=== PATIENT | female | born 1935 | race Caucasian/White ===

== ENCOUNTER 2018-08-12 11:21 | Outpatient (CLI) | payer MEDICARE, OTHER, SELFPAY ==
--- NOTE | 2018-08-12 11:30 | DI.RAD_ITS ---
SYMPTOMS/DIAGNOSIS: LEFT ELBOW PAIN ACUTE, M25.522 LEFT ELBOW: Degenerative changes with periarticular spurring is noted. Soft tissue calcifications are seen which may be ligamentous or capsular. There is a question of posterior loose body. IMPRESSION: Degenerative changes and question of posterior loose body.
[2018-08-12 11:39] LABS: Abs Immature Grans 0.02 k/cumm (0.0-0.09); Basophils % 0.2; Eosinophils % 0.7; HCT 41.6 % (36.0-46.0); HGB 13.9 g/dL (12.0-15.5); Immature Grans % 0.2; Lymphocytes % 10.5; Mean Corp. HGB Concentration 33.4 g/dL (32.0-36.0); Mean Corpuscular Volume 89.8 fL (80-95); Mean Platelet Volume 10.5 fL (8.0-11.0); Monocytes % 8.2; Neutrophils % 80.2; Platelet Count 242 x1000/uL (130-400); RBC 4.63 m/cumm (4.00-5.20); RBC Distribution Width 12.7 % (11.7-14.6); White Blood Cell Count 12.15 k/cumm (4.4-10.8)
[2018-08-12 11:41] LABS: Absolute Basophil Count 0.02 k/cumm (0.0-0.2); Absolute Eosinophil Count 0.09 k/cumm (0.0-0.7); Absolute Lymphocyte Count 1.28 k/cumm (1.2-3.4); Absolute Neutrophil Count 9.74 k/cumm (1.2-6.7)
[2018-08-12 11:51] LABS: Hemoglobin A1C 7.5 % (4.5-6.2)
[2018-08-12 13:09] LABS: ALT 22 U/L (12-78); AST 18 U/L (15-37); Albumin 4.1 g/dL (3.4-5.0); Alkaline Phosphatase 119 U/L (46-116); Anion Gap 7.5 mmol/L (3-11); BUN 19 mg/dL (7-18); Bilirubin, Total 0.5 mg/dL (0.2-1.0); CO2 32.5 mmol/L (21.0-32.0); CREATININE 0.85 mg/dL (0.55-1.02); Calcium 9.6 mg/dL (8.5-10.1); Chloride 100 mmol/L (98-107); Cholesterol 219 mg/dL (50-200); Glucose 173 mg/dL (70-100); HDL Cholesterol 57 mg/dL (40-60); LDL CHOLESTEROL 135 mg/dL (<100); Potassium 4.1 mmol/L (3.5-5.1); Sodium 140 mmol/L (136-145); Total Protein 7.8 g/dL (6.4-8.2); Triglyceride 221 mg/dL (30-150)
== END 2018-08-12 11:41 ==
PROVIDERS: PCP Nurse Practitioner; Visit Provider Nurse Practitioner
DX: M25.522 Pain in left elbow (principal); M19.022 Primary osteoarthritis, left elbow; E78.00 Pure hypercholesterolemia, unspecified; I73.9 Peripheral vascular disease, unspecified; I10 Essential (primary) hypertension; E11.9 Type 2 diabetes mellitus without complications
CPT/HCPCS: 36415; 80053; 80061; 83721; 73080; 83036; 85025

== ENCOUNTER 2018-12-01 08:56 | Day surgery (SDC) | payer MEDICARE, OTHER, MEDICAID, SELFPAY ==
--- NOTE | 2018-11-30 19:39 | POEE_ITS ---
History of Present Illness Chief Complaint: Progressive decreased vision, left eye Narrative: The patient is an 82-year-old lady with a history of diabetes with diabetic retinopathy who presents with complaints of progressive decreased vision in both eyes at both distance and near. She notes blurred vision OU, le ft eye worse than right. On examination she was noted to have moderate bilateral nuclear cataracts, left eye greater than right with best corrected vision of 20/40 OD, 20/50 OS in the presence of high hyperopia. The option of cataract surgery was offered to the patient and she wished to proceed. NOTE: The Chief Complaint, HPI, Past Medical History, Past Surgical History, Family History, Social History, Medications, and complete Ophthalmic Exam with detailed Assessment and Plan have already been documented in the patient's outpatient ophthalmic record and are not covered again in detail here. PFSH Medical History Nuclear sclerotic cataract of left eye (Acute) History of nose injury (Acute) Cataract (Chronic) Angina pectoris, unspecified CVD (cardiovascular disease) Diabetes type 2 with atherosclerosis of arteries of extremities GERD (gastroesophageal reflux disease) Hypercholesterolemia Hypertension Osteoarthritis Osteoporosis Peripheral vascular disease Pressure ulcer of left heel, stage 2 Surgical History H/O thumb surgery (Acute) H/O wrist surgery (Acute) History of total knee replacement (Acute) Hx of neck surgery (Acute) History of shoulder surgery (Chronic) Carotid endarterectomy (10/19/14) Coronary Artery Bypass Gaft (CABG) (10/19/14) 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 Social History Smoking/Tobacco Use Status: Never Alcohol Intake: never Drug use: Never Substance use type: does not use Do you feel safe at home: Yes Do you feel safe in your relationship?: Yes Meds Home Medications Medication Instructions Recorded Confirmed Type multivitamin with minerals 1 ea PO DAILY 12/02/12 11/26/18 History aspirin [Aspir-81] 81 mg PO DAILY 10/27/14 11/26/18 History clobetasol 60 gm TOPICAL BID PRN #2 tube 01/13/15 11/26/18 History Forward Goal 03/08/15 11/17/18 History polyethylene glycol 3350 17 gm PO DAILY PRN PRN #30 packet 07/25/17 11/26/18 Rx blood sugar diagnostic [Onetouch #100 strip 08/26/17 11/17/18 Rx Ultra Test Strips] lancets [[place]ytouch Lancets] #100 ea 08/26/17 11/17/18 Rx pravastatin 5 mg PO DAILY #45 tab 10/03/17 11/26/18 Rx Diabetic Shoes u #2 10/07/17 11/17/18 Clinic clopidogrel [Plavix] 75 mg PO DAILY #90 tab 03/03/18 11/26/18 Rx docusate sodium 100 mg capsule 100 mg PO TID PRN PRN #90 cap 07/16/18 11/26/18 Rx ranitidine 150 mg tablet 150 mg PO DAILY #90 tab-cap 07/16/18 11/26/18 Rx amlodipine 10 mg tablet 10 mg PO DAILY #90 tab 08/06/18 11/26/18 Rx hydrochlorothiazide 25 mg tablet 25 mg PO DAILY #90 tab 08/06/18 11/26/18 Rx metoprolol tartrate 100 mg tablet 50 mg PO BID #180 tab 08/06/18 11/26/18 Rx lisinopril 20 mg tablet 20 mg PO DAILY #90 tab 08/12/18 11/26/18 Rx cholecalciferol (vitamin D3) 400 400 unit PO DAILY tab 11/17/18 11/26/18 History unit tablet Allergies Allergy/AdvReac Type Severity Reaction Status Date / Time acetaminophen Allergy Unknown Verified 11/26/18 14:17 oxycodone Allergy Unknown SKIN RASH Verified 11/26/18 14:17 atorvastatin calcium Allergy Verified 11/26/18 14:17 [From Lipitor] amlodipine AdvReac Intermediate LEG EDEMA Verified 11/26/18 14:17 diltiazem AdvReac Intermediate DIZZINESS Verified 11/26/18 14:17 AND LE EDEMA simvastatin AdvReac Unknown MYALGIA Verified 11/26/18 14:17 chlorthalidone AdvReac LEGS Verified 11/26/18 14:17 SWELLING metformin AdvReac THINKS Verified 11/26/18 14:17 GAVE HER A STROKE Exam OCULAR EXAM:: Recent ocular examination is significant for best corrected vision of 20/40 OD, 20/50 OS. Intraocular pressure is 16 OD, 16 OS. Extraocular motility is normal. Pupils equal, round, and reactive without afferent pupillary defect slit-lamp examination is significant for intermediate anterior chamber depth. Pupils dilated to 5 mm OU. 2+ nuclear cataract OD, 2-3+ nuclear cataract OS. Dilated funduscopic examination shows disc cupping of 0.25 OU with normal vessels. The retinal vasculature is normal as is the maculas OU. Mid peripheral and peripheral retina show findings consistent with diabetic retinopathy dot blot hemorrhages. BRIGHTNESS ACUITY TESTING (BAT):: Brightness acuity testing of the left eye office is 20/50. Lowest 20/60. Medium is 20/70. On the high setting is 20/100. Assessment and Plan (1) Nuclear sclerotic cataract of left eye: Current visit: No Status: Acute Assessment: Visually significant cataract, left eye. Plan: Cataract extraction with intraocular lens implantation, left eye Note: NOTE:: The details of the planned surgery, including the risks, indications,limitations,expectations,outcome and possible complications were explained to the patient. The patient understands the complications including, but not limited to: infection, hemorrhage, posterior dislocation of the lens or nuclear fragments which may require the intervention of a vitreoretinal surgeon, possible loss of the eye, or from anesthetic complications. The patient has been made aware of the option of not having surgery, that vision following surgery may not be equal to that prior to surgery, and that the planned surgery may not achieve the intended results. Following this discussion, which the patient appeared to understand, the patient wishes to proceed with cataract surgery with lens implantation of the affected eye to improve and maximize vision.
[2018-12-01 09:18] VITALS: BP 172/67; PULSE 58; RESP 16; TEMP 35.6; O2SAT 98
[2018-12-01] MEDS: Tropicam./Phenyleph. (1/2.5%) 5 ML BTL OS ×3 (09:39→09:51)
[2018-12-01] MEDS: Tetracaine 0.5% 4 ML BTL OS ×4 (09:39→10:45)
--- NOTE | 2018-12-01 10:33 | W.PM.DSUDISC ---
Discharge Plan Disposition Patient Disposition: HOME Condition: Stable Discharge Details Attending Provider: Raudel Murphy Primary Care Provider: Kenna Vargas Home Meds and New Rx's Prescriptions: No Action lisinopril 20 mg tablet 20 mg PO DAILY Qty: 90 RF: 3 cholecalciferol (vitamin D3) [Vitamin D3] 400 unit tablet 400 unit PO DAILY RF: 0 multivitamin with minerals 1 EACH tablet 1 ea PO DAILY RF: 0 clobetasol 60 GM ointment 60 gm Topical BID PRNQty: 2 RF: 2 Forward Goal RF: 0 OneTouch Ultra Test 1 EACH strip 1 ea Miscellaneous DAILY Qty: 100 RF: 3 lancets [OneTouch UltraSoft Lancets] 1 EACH misc 1 ea Miscellaneous DAILY Qty: 100 RF: 3 pravastatin 10 MG tablet 5 mg PO DAILY Qty: 45 RF: 3 Diabetic Shoes Qty: 2 RF: 0 clopidogrel [Plavix] 75 MG tablet 75 mg PO DAILY Qty: 90 RF: 3 docusate sodium [Colace] 100 mg capsule 100 mg PO TID PRN PRN (Reason: constipation) Qty: 90 RF: 12 ranitidine HCl 150 mg tablet 150 mg PO DAILY Qty: 90 RF: 3 amlodipine 10 mg tablet 10 mg PO DAILY Qty: 90 RF: 3 hydrochlorothiazide 25 mg tablet 25 mg PO DAILY Qty: 90 RF: 3 metoprolol tartrate 100 mg tablet 50 mg PO BID Qty: 180 RF: 3 aspirin [Aspir-81] 81 MG tablet,delayed release (DR/EC) 81 mg PO DAILY RF: 0 polyethylene glycol 3350 17 GM powder in packet 17 gm PO DAILY PRN PRN (Reason: Constipation) Qty: 30 RF: 0 Discharge Instructions Stand Alone Forms: Post-op Topical Cataract, Press Ganey (DSU) Discharge Orders Discharge Orders: Discharge Order (Routine); Ordered 12/01/18 Ordered By: Raudel Murphy DS: Diagnosis Discharge Diagnosis (1) Nuclear sclerotic cataract of left eye: Status: Resolved (2) Status post cataract extraction and insertion of intraocular lens of left eye: Status: Chronic
--- NOTE | 2018-12-01 10:35 | ROE_ITS ---
Date of service: 12/01/18 Time of Service: 11:22 Operative Note PRE-OP DIAGNOSIS: Cataract, left eye POST-OP DIAGNOSIS: same PROCEDURE: Cataract extraction using phacoemulsification with intraocular lens implant, left eye SURGEON: Raudel Murphy ANESTHESIA: MAC and local (sub-tenon's anesthetic infiltration) PATHOLOGY: none sent COMPLICATIONS: None Patient was transported to: same day Patient's condition: stable Implants: Maximus and Maximus Vision / [employer] Tecnis ZCB00 Indications: Progressive decreased vision due to cataract, left eye Procedure Description: CATARACT SURGERY OPERATIVE REPORT PREOPERATIVE DIAGNOSIS: Nuclear cataract, left eye High hyperopia POSTOPERATIVE DIAGNOSIS: Same OPERATION: Cataract extraction using phacoemulsification with posterior chamber intraocular lens implant, left eye. IOL: IOL Utility Bill Complaints Investigator/Model: [employer] / ISABELLA Tecnis ZCB00 IOL Power: + 32.50 diopters IOL Serial Number: [id number] Optic Diameter: 6.0mm Haptic/Overall Diameter: 13.0mm PHACO INFO: [employer] Global[employer]ion Vision System with OZil and Active Fluidics Cumulative Dispersed Energy (CDE): 17.65 seconds SURGEON: Raudel Murphy MD, DHARA ANESTHESIA: Monitored Anesthesia Care (MAC), with local sub-tenon's anesthetic infiltration COMPLICATIONS: None SPECIMENS: None INDICATIONS FOR PROCEDURE: The patient is an 82-year-old lady with history of very high hyperopia (around +8.00) who has developed a moderate bilateral nuclear cataract. She is significantly symptomatically in her left eye with best corrected vision of 20/70 that she desires cataract surgery and attempt to improve and maximize her vision. PROCEDURE: The correct surgical eye was identified and marked as the left eye and the pupil was dilated in the preoperative area using mydriatics and cycloplegics. The dilated pupil size was 6.0 mm. Oral sedation was administered in the form of an Imprimis MKO Melt (midazolam 3mg/ketamine 25mg/ondansetron 2mg). The patient was brought to the operating room where cardiopulmonary monitoring was instituted and surgical time-out was performed, confirming the correct operative eye and IOL power. Topical anesthesia was administered and ophthalmic povidone-iodine 5% was instilled into the conjunctival fornices. Lidocaine gel was applied to the cornea and the lindsay-ocular area was prepped with Betadine 10% solution and draped in the usual sterile fashion for intraocular surgery, including an aperture drape. A Tegaderm transparent film dressing was cut in half and used to cover the lashes and lid margins. Care was taken to sequester the lashes and lid margins under the Tegaderm dressing. A lid speculum was placed between the lids of the operative eye and the Shobha-Ajky operating microscope was maneuvered into position. Stephanie scissors were then used to make a conjunctival buttonhole approximately 6mm posterior to the limbus in the inferonasal quadrant. Blunt dissection was carried out to expose bare sclera, and a blunt-tipped sub-tenon?s anesthesia cannula was introduced and passed posteriorly along the globe where non- preserved plain lidocaine was injected into posterior sub-Tenon?s space. A sideport knife was used to make a paracentesis port superior/superiortemporal, and the anterior chamber was filled with Viscoat. A 2.4mm keratome knife was used to create a half-thickness groove at the limbus and then to construct a three-plane near-clear corneal tunnel extending 2.0mm into clear cornea in the temporal position. . A flap was raised on the anterior capsule and capsulorhexis forceps were used to complete a continuous curvilinear capsulorhexis of 5.0 mm. Balanced salt solution was then used to perform cortical cleaving hydrodissection and nuclear hydrodelineation until the lens could be freely rotated within the capsular bag. The lens nucleus was then disassembled and removed within the capsular bag and iris plane using phacoemulsification. Residual cortical material was removed using the 45-degree angled silicone I/A tip with 0.3mm port. The posterior capsule was carefully polished to remove as much residual lens epithelial cells as safely possible. The capsular bag was then inflated and the anterior chamber deepened with Provisc. The lens implant described above was inserted into the capsular bag using the ISABELLA [place] Injector. A Kuglen hook was used to dial the IOL into position. Residual viscoelastic was then removed first from posterior to the IOL, then from the anterior chamber using the I/A handpiece. The lens implant was noted to center nicely within the capsular bag. The incisions were stromally hydrated, and the anterior chamber was reformed using BSS. Then 0.4cc of moxifloxacin 1.5mg/ml were injected into the capsular bag and anterior chamber. The incisions were checked with a Weck spear and found to be secure. Several drops of ophthalmic povidone-iodine 5% were then applied to the eye followed by two drops of Imprimis combination gatifloxacin/dexamethasone solution. The drapes were removed and a clear plastic protective eye shield was placed over the eye. The patient was then returned to Same Day Surgery in stable condition.
[2018-12-01] MEDS: Povidone-Iodine Ophth 30 ML BTL ×2 (10:45→11:15)
[2018-12-01] MEDS: Lidocaine 2% Jelly 6 ML SYR (10:45)
[2018-12-01] MEDS: Balanced Salt Soln.-PLUS 500 ML BAG (10:52)
[2018-12-01] MEDS: Lidocaine 1% Pres-Free 5 ML VIAL (10:52)
[2018-12-01] MEDS: Duovisc Viscoelastic System EACH 1 EACH (10:52)
[2018-12-01 11:45] VITALS: BP 161/68; PULSE 56; RESP 14; TEMP 35.9; O2SAT 98
== END 2018-12-01 12:00 | disposition home or self-care (01) ==
PROVIDERS: PCP Nurse Practitioner; Visit Provider Ophthalmology
PROC: (CPT 66984; principal; 2018-12-01 11:30)
DX: H25.12 Age-related nuclear cataract, left eye (principal); H52.02 Hypermetropia, left eye; E11.9 Type 2 diabetes mellitus without complications; Z79.84 Long term (current) use of oral hypoglycemic drugs; I10 Essential (primary) hypertension; K21.9 Gastro-esophageal reflux disease without esophagitis
CPT/HCPCS: 66984; V2632

== ENCOUNTER 2018-12-15 10:30 | Day surgery (SDC) | payer MEDICARE, OTHER, MEDICAID, SELFPAY ==
--- NOTE | 2018-12-14 18:18 | W.PIPPEYE ---
History of Present Illness Chief Complaint: Progressive decreased vision, right eye Narrative: The patient is an 83-year old lady with history of high hyperopia and cataracts. She noted progressive decreased vision in both eyes at both distance and near, left eye worse than right. On examination she was noted to have moderate bilateral nuclear cataracts, left eye greater than right. Best corrected vision measured 20/40 OD, 20/50 OS with significant glare disability. She underwent cataract surgery in the left eye on 12/01/2018. Postoperatively, she has regained best corrected vision of 20/30 in the left eye. She now presents for cataract surgery in the right eye. NOTE: The Chief Complaint, HPI, Past Medical History, Past Surgical History, Family History, Social History, Medications, and complete Ophthalmic Exam with detailed Assessment and Plan have already been documented in the patient's outpatient ophthalmic record and are not covered again in detail here. [facility] Medical History History of nose injury (Acute) Cataract (Chronic) Nuclear sclerotic cataract of left eye (Resolved) Angina pectoris, unspecified CVD (cardiovascular disease) Diabetes type 2 with atherosclerosis of arteries of extremities GERD (gastroesophageal reflux disease) Hypercholesterolemia Hypertension Osteoarthritis Osteoporosis Peripheral vascular disease Pressure ulcer of left heel, stage 2 Surgical History Status post cataract extraction and insertion of intraocular lens of left eye (Chronic 12/01/18) H/O thumb surgery (Acute) H/O wrist surgery (Acute) History of total knee replacement (Acute) Hx of neck surgery (Acute) History of shoulder surgery (Chronic) Carotid endarterectomy (10/19/14) Coronary Artery Bypass Gaft (CABG) (10/19/14) 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 Social History Smoking/Tobacco Use Status: Never Alcohol Intake: never Drug use: Never Substance use type: does not use Do you feel safe at home: Yes Do you feel safe in your relationship?: Yes Meds Home Medications Medication Instructions Recorded Confirmed Type multivitamin with minerals 1 ea PO DAILY 12/02/12 12/01/18 History aspirin [Aspir-81] 81 mg PO DAILY 10/27/14 12/01/18 History clobetasol 60 gm TOPICAL BID PRN #2 tube 01/13/15 12/01/18 History Forward Goal 03/08/15 11/17/18 History polyethylene glycol 3350 17 gm PO DAILY PRN PRN #30 packet 07/25/17 12/01/18 Rx blood sugar diagnostic [Onetouch #100 strip 08/26/17 11/17/18 Rx Ultra Test Strips] lancets [Onetouch Lancets] #100 ea 08/26/17 11/17/18 Rx pravastatin 5 mg PO DAILY #45 tab 10/03/17 12/01/18 Rx Diabetic Shoes u #2 10/07/17 11/17/18 Clinic clopidogrel [Plavix] 75 mg PO DAILY #90 tab 03/03/18 12/01/18 Rx docusate sodium 100 mg capsule 100 mg PO TID PRN PRN #90 cap 07/16/18 12/01/18 Rx ranitidine 150 mg tablet 150 mg PO DAILY #90 tab-cap 07/16/18 12/01/18 Rx amlodipine 10 mg tablet 10 mg PO DAILY #90 tab 08/06/18 12/01/18 Rx hydrochlorothiazide 25 mg tablet 25 mg PO DAILY #90 tab 08/06/18 12/01/18 Rx metoprolol tartrate 100 mg tablet 50 mg PO BID #180 tab 08/06/18 12/01/18 Rx lisinopril 20 mg tablet 20 mg PO DAILY #90 tab 08/12/18 12/01/18 Rx cholecalciferol (vitamin D3) 400 400 unit PO DAILY tab 11/17/18 12/01/18 History unit tablet Allergies Allergy/AdvReac Type Severity Reaction Status Date / Time acetaminophen Allergy Unknown Verified 12/01/18 09:14 oxycodone Allergy Unknown SKIN RASH Verified 12/01/18 09:14 atorvastatin calcium Allergy Verified 12/01/18 09:14 [From Lipitor] amlodipine AdvReac Intermediate LEG EDEMA Verified 12/01/18 09:14 diltiazem AdvReac Intermediate DIZZINESS Verified 12/01/18 09:14 AND LE EDEMA simvastatin AdvReac Unknown MYALGIA Verified 12/01/18 09:14 chlorthalidone AdvReac LEGS Verified 12/01/18 09:14 SWELLING metformin AdvReac THINKS Verified 12/01/18 09:14 GAVE HER A STROKE Exam OCULAR EXAM:: Most recent ocular examination is significant for corrected visual acuity of 20/50 OD, 20/30 OS. Intraocular pressure is 14 OS, 16 OD. Pupils equal, round, and reactive without afferent pupillary defect extraocular motility is normal. Slit-lamp examination is significant for intermediate anterior chamber depth OD with pupils dilating to 5 mm. A 2+ nuclear cataract is present OD. A well-positioned PCIOL is present OS with clear posterior capsule. Dilated funduscopic examination shows disc cupping of 0.25 OU with good color. The vessels and macula are normal OU. Peripheral and mid peripheral retina show dot and blot hemorrhages consistent with mild diabetic retinopathy. BRIGHTNESS ACUITY TESTING (BAT):: Brightness acuity testing of the right eye office is 20/40. On the low medium and high setting is 20/50. Assessment and Plan (1) Nuclear sclerotic cataract of right eye: Current visit: No Status: Acute Assessment: Visually significant cataract, right eye. Plan: Cataract extraction with intraocular lens implantation, right eye Note: NOTE:: The details of the planned surgery, including the risks, indications,limitations,expectations,outcome and possible complications were explained to the patient. The patient understands the complications including, but not limited to: infection, hemorrhage, posterior dislocation of the lens or nuclear fragments which may require the intervention of a vitreoretinal surgeon, possible loss of the eye, or from anesthetic complications. The patient has been made aware of the option of not having surgery, that vision following surgery may not be equal to that prior to surgery, and that the planned surgery may not achieve the intended results. Following this discussion, which the patient appeared to understand, the patient wishes to proceed with cataract surgery with lens implantation of the affected eye to improve and maximize vision.
[2018-12-15 10:57] VITALS: BP 177/70; PULSE 59; RESP 16; TEMP 35.7; O2SAT 97
[2018-12-15] MEDS: Tetracaine 0.5% 4 ML BTL OD ×4 (11:02→12:03)
[2018-12-15] MEDS: Tropicam./Phenyleph. (1/2.5%) 5 ML BTL OD ×3 (11:02→11:15)
--- NOTE | 2018-12-15 11:53 | W.PM.DSUDISC ---
Discharge Plan Disposition Patient Disposition: HOME Condition: Stable Discharge Details Attending Provider: Raudel Murphy Primary Care Provider: Kenna Vargas Home Meds and New Rx's Prescriptions: No Action lisinopril 20 mg tablet 20 mg PO DAILY Qty: 90 RF: 3 cholecalciferol (vitamin D3) [Vitamin D3] 400 unit tablet 400 unit PO DAILY RF: 0 multivitamin with minerals 1 EACH tablet 1 ea PO DAILY RF: 0 clobetasol 60 GM ointment 60 gm Topical BID PRNQty: 2 RF: 2 Forward Goal RF: 0 OneTouch Ultra Test 1 EACH strip 1 ea Miscellaneous DAILY Qty: 100 RF: 3 lancets [OneTouch UltraSoft Lancets] 1 EACH misc 1 ea Miscellaneous DAILY Qty: 100 RF: 3 pravastatin 10 MG tablet 5 mg PO DAILY Qty: 45 RF: 3 Diabetic Shoes Qty: 2 RF: 0 clopidogrel [Plavix] 75 MG tablet 75 mg PO DAILY Qty: 90 RF: 3 docusate sodium [Colace] 100 mg capsule 100 mg PO TID PRN PRN (Reason: constipation) Qty: 90 RF: 12 ranitidine HCl 150 mg tablet 150 mg PO DAILY Qty: 90 RF: 3 amlodipine 10 mg tablet 10 mg PO DAILY Qty: 90 RF: 3 hydrochlorothiazide 25 mg tablet 25 mg PO DAILY Qty: 90 RF: 3 metoprolol tartrate 100 mg tablet 50 mg PO BID Qty: 180 RF: 3 aspirin [Aspir-81] 81 MG tablet,delayed release (DR/EC) 81 mg PO DAILY RF: 0 polyethylene glycol 3350 17 GM powder in packet 17 gm PO DAILY PRN PRN (Reason: Constipation) Qty: 30 RF: 0 Discharge Instructions Stand Alone Forms: Post-op Topical Cataract, Press Ganey (DSU) Discharge Orders Discharge Orders: Discharge Order (Routine); Ordered 12/15/18 Ordered By: Raudel Murphy DS: Diagnosis Discharge Diagnosis (1) Nuclear sclerotic cataract of right eye: Status: Resolved (2) Status post cataract extraction and insertion of intraocular lens of right eye: Status: Chronic
--- NOTE | 2018-12-15 11:54 | W.PM.OP ---
Date of service: 12/15/18 Time of Service: 12:34 Operative Note PRE-OP DIAGNOSIS: Cataract, right eye PROCEDURE: Cataract extraction using phacoemulsification with intraocular lens implant, right eye SURGEON: Raudel Murphy ANESTHESIA: MAC and local (sub-tenon's anesthetic infiltration) ESTIMATED BLOOD LOSS: 0 PATHOLOGY: none sent COMPLICATIONS: None Patient was transported to: same day Patient's condition: stable Implants: Maximus and Maximus [employer] / [employer] Tecnis ZCB00 intraocular lens Indications: Progressive decreased vision due to cataract, right eye Procedure Description: CATARACT SURGERY OPERATIVE REPORT PREOPERATIVE DIAGNOSIS: Nuclear cataract, right eye POSTOPERATIVE DIAGNOSIS: Same OPERATION: Cataract extraction using phacoemulsification with posterior chamber intraocular lens implant, right eye. IOL: IOL Therapeutic Support Staff/Model: [employer] / ISABELLA Tecnis ZCB00 IOL Power: + 31.5 diopters IOL Serial Number: [id number] Optic Diameter: 6.0mm Haptic/Overall Diameter: 13.0mm PHACO INFO: Andrew Clerkyurion Vision System with OZil and Active [employer]uidics Cumulative Dispersed Energy (CDE): 10.54 seconds SURGEON: Raudel Murphy MD, DHARA ANESTHESIA: Monitored Anesthesia Care (MAC), with local sub-tenon's anesthetic infiltration COMPLICATIONS: None SPECIMENS: None INDICATIONS FOR PROCEDURE: Patient is an 83-year-old lady with history of high hyperopia who has developed significant bilateral cataracts. She has already undergone cataract surgery in her left eye and is doing well postoperatively. She now presents for cataract surgery in the right eye. PROCEDURE: The correct surgical eye was identified and marked as the right eye and the pupil was dilated in the preoperative area using mydriatics and cycloplegics. The dilated pupil size was 6.0 mm. Oral sedation was administered in the form of an Imprimis MKO Melt (midazolam 3mg/ketamine 25mg/ondansetron 2mg). The patient was brought to the operating room where cardiopulmonary monitoring was instituted and surgical time-out was performed, confirming the correct operative eye and IOL power. Topical anesthesia was administered and ophthalmic povidone-iodine 5% was instilled into the conjunctival fornices. Lidocaine gel was applied to the cornea and the lindsay-ocular area was prepped with Betadine 10% solution and draped in the usual sterile fashion for intraocular surgery, including an aperture drape. A Tegaderm transparent film dressing was cut in half and used to cover the lashes and lid margins. Care was taken to sequester the lashes and lid margins under the Tegaderm dressing. A lid speculum was placed between the lids of the operative eye and the Shobha-Jaky operating microscope was maneuvered into position. Stephanie scissors were then used to make a conjunctival buttonhole approximately 6mm posterior to the limbus in the inferonasal quadrant. Blunt dissection was carried out to expose bare sclera, and a blunt-tipped sub-tenon?s anesthesia cannula was introduced and passed posteriorly along the globe where non-preserved plain lidocaine was injected into posterior sub-Tenon?s space. A sideport knife was used to make a paracentesis port inferiortemporally, and the anterior chamber was filled with Healon GV. A 2.4mm keratome knife was used to create a half-thickness groove at the limbus and then to construct a three-plane near-clear corneal tunnel extending 2.0mm into clear cornea in the superiortemporal position. . A flap was raised on the anterior capsule and capsulorhexis forceps were used to complete a continuous curvilinear capsulorhexis of 5.0 mm. Mild to moderate zonular laxity was noted. Balanced salt solution was then used to perform cortical cleaving hydrodissection and nuclear hydrodelineation until the lens could be freely rotated within the capsular bag. The lens nucleus was then disassembled and removed within the capsular bag and iris plane using phacoemulsification. Residual cortical material was removed using the I/A handpiece. The posterior capsule was carefully polished to remove as much residual lens epithelial cells as safely possible. The capsular bag was then inflated and the anterior chamber deepened with viscoelastic. The lens implant described above was inserted into the capsular bag using the ISABELLA [place] Injector. A Kuglen hook was used to dial the IOL into position. Residual viscoelastic was then removed first from posterior to the IOL, then from the anterior chamber using the I/A handpiece. The lens implant was noted to center nicely within the capsular bag. The incisions were stromally hydrated, and the anterior chamber was reformed using BSS. Then 0.4cc of moxifloxacin 1.5mg/ml were injected into the capsular bag and anterior chamber. The incisions were checked with a Weck spear and found to be secure. Several drops of ophthalmic povidone-iodine 5% were then applied to the eye followed by two drops of Imprimis combination prednisolone/gatifloxacin/bromfenac solution. The drapes were removed and a clear plastic protective eye shield was placed over the eye. The patient was then returned to Same Day Surgery in stable condition.
[2018-12-15] MEDS: Lidocaine 1% Pres-Free 5 ML VIAL (12:03)
[2018-12-15] MEDS: Lidocaine 2% Jelly 6 ML SYR (12:09)
[2018-12-15] MEDS: Balanced Salt Soln.-PLUS 500 ML BAG (12:09)
[2018-12-15] MEDS: Povidone-Iodine Ophth 30 ML BTL (12:28)
[2018-12-15 13:02] VITALS: BP 159/66; PULSE 57; RESP 18; TEMP 36.3; O2SAT 94
== END 2018-12-15 13:15 | disposition home or self-care (01) ==
PROVIDERS: PCP Nurse Practitioner; Visit Provider Ophthalmology
PROC: (CPT 66984; principal; 2018-12-15 13:30)
DX: H25.11 Age-related nuclear cataract, right eye (principal); Z98.42 Cataract extraction status, left eye; Z96.1 Presence of intraocular lens; E11.9 Type 2 diabetes mellitus without complications; Z79.4 Long term (current) use of insulin; I10 Essential (primary) hypertension; K21.9 Gastro-esophageal reflux disease without esophagitis
CPT/HCPCS: 66984; V2632

== ENCOUNTER 2020-02-22 21:17 | Outpatient (REF) | payer MEDICARE, OTHER, MEDICAID, SELFPAY ==
[2020-02-22 19:05] LABS: ALT 30 U/L (14-59); AST 24 U/L (15-37); Albumin 4.1 g/dL (3.4-5.0); Alkaline Phosphatase 83 U/L (46-116); Anion Gap 10.2 mmol/L (3-11); BUN 12 mg/dL (7-18); Bilirubin, Total 0.3 mg/dL (0.2-1.0); CO2 25.8 mmol/L (21.0-32.0); CREATININE 0.77 mg/dL (0.55-1.02); Calcium 9.4 mg/dL (8.5-10.1); Calculated LDL 109 mg/dL (<100); Chloride 106 mmol/L (98-107); Cholesterol 179 mg/dL (<200); Glucose 123 mg/dL (74-106); HDL Cholesterol 46 mg/dL (40-60); Potassium 4.3 mmol/L (3.5-5.1); Sodium 142 mmol/L (136-145); Total Protein 7.4 g/dL (6.4-8.2); Triglyceride 124 mg/dL (<150)
== END 2020-02-22 21:37 ==
LOC: LBN 21:17
PROVIDERS: PCP Nurse Practitioner; Visit Provider Nurse Practitioner
DX: E11.9 Type 2 diabetes mellitus without complications (principal); E78.00 Pure hypercholesterolemia, unspecified; I10 Essential (primary) hypertension; I25.10 Atherosclerotic heart disease of native coronary artery without angina pectoris
CPT/HCPCS: 80053; 80061

== ENCOUNTER 2020-05-01 08:46 | Emergency (ER) | payer MEDICARE, OTHER, MEDICAID, SELFPAY ==
[2020-05-01] VITALS (16 sets, daily range): BP systolic 150–221; BP diastolic 43–71; PULSE 52–67; RESP 10–20; TEMP 36.6; O2SAT 96–99
--- NOTE | 2020-05-01 08:45 | DI.RAD_ITS ---
EXAM: XR CHEST 2V PA LATERAL CLINICAL HISTORY: palpitations TECHNIQUE: COMPARISON: CR CHEST ONE VIEW IN RAD DEPT from 06/28/2017 FINDINGS: There are multiple sternal fixation devices and multiple mediastinal vascular clips. Heart is not en larged. Lungs are grossly clear. No pleural effusion seen. No change from film of June 2017. IMPRESSION: No evidence of acute process. RADIATION DOSE DELIVERED: Total DLP
--- NOTE | 2020-05-01 08:45 | RT.EKG_ITS ---
APPROVED REPORT Exam: Resting ECG Patient Location: E HR:62 bpm ECG Measurements Heart Rate 62 AXIS NE 144 P -2 QRSd 108 QRS -19 QT 449 T 111 QTc 453 Conclusion Sinus rhythm...normal P axis, V-rate 62 Atrial premature complex. LVH with secondary repolarization abnormality...multi-LVH criteria, abnrm ST-T minimal change versus 06/28/17
--- NOTE | 2020-05-01 08:49 | W.ED.GENAD ---
Discharge Plan Disposition Patient Disposition: HOME Condition: Fair Discharge Details Clinical Impression: Heart palpitations Primary Care Provider: Kenna Vargas ED Provider: Nia Clark Home Meds and New Rx's Prescriptions: Continued clopidogrel [Plavix] 75 mg tablet 75 mg PO DAILY Qty: 90 RF: 3 amlodipine 10 mg tablet 10 mg PO DAILY Qty: 90 RF: 3 hydrochlorothiazide 25 mg tablet 25 mg PO DAILY Qty: 90 RF: 3 lisinopril 20 mg tablet 20 mg PO DAILY Qty: 90 RF: 3 pravastatin 10 mg tablet 5 mg PO DAILY Qty: 45 RF: 3 cholecalciferol (vitamin D3) [Vitamin D3] 400 unit tablet 400 unit PO DAILY RF: 0 multivitamin with minerals 1 EACH tablet 1 ea PO DAILY RF: 0 clobetasol 60 GM ointment 60 gm Topical BID PRNQty: 2 RF: 2 Forward Goal RF: 0 (DME) OneTouch Ultra Test 1 EACH strip 1 ea Miscellaneous DAILY Qty: 100 RF: 3 (DME) lancets [OneTouch UltraSoft Lancets] 1 EACH misc 1 ea Miscellaneous DAILY Qty: 100 RF: 3 Diabetic Shoes Qty: 2 RF: 0 docusate sodium [Colace] 100 mg capsule 100 mg PO TID PRN PRN (Reason: constipation) Qty: 90 RF: 12 ketorolac 0.4 % drops 1 drp OP QID RF: 0 metoprolol tartrate 100 mg tablet 50 mg PO BID Qty: 180 RF: 3 aspirin [Aspir-81] 81 MG tablet,delayed release (DR/EC) 81 mg PO DAILY RF: 0 polyethylene glycol 3350 17 GM powder in packet 17 gm PO DAILY PRN PRN (Reason: Constipation) Qty: 30 RF: 0 Discharge Instructions Instructions: Heart Palpitations (ED) Additional Instructions: Your exam and work-up completed today is reassuring. However, I would like for you to follow-up with your primary care in the next 1 to 2 weeks for reevaluation. Please continue to wear the property assessment monitor as instructed by respiratory therapy. If you develop chest pain, shortness of breath, feel lightheaded, fever/chills or other new/worsening symptoms please seek care urgently once again. Referrals: Kenna Vargas NP [Primary Care Provider] - Medical Decision Making Patient is a pleasant 84-year-old female presents today with chief complaint of palpitations. She reports she woke this morning feeling her heart beating in her chest. States that she took her pulse and noted her pulse to be fast. Denied any lightheadedness, chest pain, shortness of breath. No nausea or vomiting. No pain in her neck, extremities. Patient states that the sensation was ongoing when she first arrived but is resolved at the time of my exam. Past medical history is pertinent for CAD, type 2 diabetes, GERD, hypercholesterolemia, hypertension, PVD. Patient is status post carotid endarterectomy, three-vessel CABG in 2015. States she has had sensation like this multiple times historically but typically the symptoms are much more short-lived. On exam, patient is resting comfortably. Nursing staff does report that they did check her radial pulse when she was still reporting to be asymptomatic. She noted the patient had a regular rhythm that felt to be in the 70s. She does have a systolic murmur which has been present on chart review. Lungs are clear. Distal pulses are intact. She does have 1+ pitting edema in her bilateral lower extremities which patient reports is chronic and unchanged. ECG was reviewed by Dr. Granger. Please see his note. Patient does have findings suggestive of LVH. She does have a T wave abnormalities but this is fairly similar to previous ECG dated 2017. PACs noted. Patient did wear a Holter monitor in 2014. At that time, patient was noted to have baseline sinus bradycardia concave [address] depression. Rare PACs. Patient did have some hot sensations while wearing a mask and during both of these events, patient was no sinus rhythm rate of 79 and 57. Labs reviewed. No leukocytosis. Stable H&H. Coags are normal. Glucose is elevated at 179. No electrolyte abnormalities. BNP is slightly elevated 424. Troponin less than 0.05. Chest x-ray reviewed by radiologist: FINDINGS: Lungs: Mild opacity in the left costophrenic angle may represent minimal atelectasis or pneumonia or small left pleural effusion. . Pleural space: Possible small left pleural effusion. Heart/Mediastinum: Unremarkable. No cardiomegaly. Vasculature: Tortuous aorta Bones/joints: Median sternotomy Degenerative changes in the glenohumeral joints IMPRESSION: Mild opacity in the left costophrenic angle may represent minimal atelectasis or pneumonia or small left pleural effusion. . Discussed findings with the patient. She does not clinically fit the picture for pneumonia. Clinical exam indicates this is most likely associated with atelectasis. Patient continues to be asymptomatic. She is notably hypertensive. She did not take any of her medications this morning. We will give her morning dosing. Plan for repeat troponin. Repeat troponin remains less than 0.05. Repeat EKG was reviewed by Dr. Granger and without ischemic abnormality. Discussed these findings with the patient and her niece. Advised that at this point, I am unclear as to what the source of her palpitations was. It is reassuring that she was in a normal rhythm and rate when she was initially evaluated by nursing staff during which time she was symptomatic. However, for further evaluation I do feel that cardiac monitoring would be appropriate. Spoke with respiratory therapy and will have the patient placed on a BG mini EL property assessment monitor. She is given strict return precautions. I have asked that she follow-up with primary care in 1 week for reevaluation. All of her questions and concerns were addressed she is in agreement this plan. HPI General Mode of arrival: ambulatory. Date/Time Provider Initiated Documentation: 05/01/20 08:49. Limitations to Documentation: no limitations. Information obtained by: patient, family (gil who brings patient to all appointments, sees her daily), RN notes reviewed and old records reviewed. History of Present Illness 84 year old F presents to the emergency department with the chief complaint of palpitations, described as moderate and similar to prior episodes, Quality is described as other (my pulse was going fast), and is localized to the chest. Patient reports no radiation. Patient started experiencing this hour(s) (2) and it has been now resolved (was present when she walked in but is now resolved). No relieving factors improve symptom(s), No exacerbating factors reported . Patient notes no other symptoms.; denies chest pain, cough, fever/chills, loss of appetite, nausea/vomiting, rash, shortness of breath, syncope and weakness. Patient did receive the following treatments prior to arrival, none Related Data Home Medications Medication Instructions Recorded Confirmed multivitamin with minerals 1 ea PO DAILY 12/02/12 05/01/20 aspirin [Aspir-81] 81 mg PO DAILY 10/27/14 05/01/20 clobetasol 60 gm TOPICAL BID PRN #2 tube 01/13/15 05/01/20 Forward Goal 03/08/15 02/22/20 polyethylene glycol 3350 17 gm PO DAILY PRN PRN #30 packet 07/25/17 05/01/20 OneTouch Ultra Test #100 strip 08/26/17 02/22/20 lancets [OneTouch UltraSoft #100 ea 08/26/17 02/22/20 Lancets] docusate sodium 100 mg capsule 100 mg PO TID PRN PRN #90 cap 07/16/18 05/01/20 cholecalciferol (vitamin D3) 10 400 unit PO DAILY tab 11/17/18 05/01/20 mcg (400 unit) tablet ketorolac 0.4 % eye drops 1 drp OP QID ml 04/07/19 05/01/20 metoprolol tartrate 100 mg tablet 50 mg PO BID #180 tab 07/13/19 05/01/20 amlodipine 10 mg tablet 10 mg PO DAILY #90 tab 02/22/20 05/01/20 clopidogrel 75 mg tablet 75 mg PO DAILY #90 tab 02/22/20 05/01/20 hydrochlorothiazide 25 mg tablet 25 mg PO DAILY #90 tab 02/22/20 05/01/20 lisinopril 20 mg tablet 20 mg PO DAILY #90 tab 02/22/20 05/01/20 pravastatin 10 mg tablet 5 mg PO DAILY #45 tab 02/22/20 05/01/20 Previous Rx's Medication Instructions Recorded polyethylene glycol 3350 17 gm PO DAILY PRN PRN #30 packet 07/25/17 OneTouch Ultra Test #100 strip 08/26/17 lancets [OneTouch UltraSoft #100 ea 08/26/17 Lancets] docusate sodium 100 mg capsule 100 mg PO TID PRN PRN #90 cap 07/16/18 metoprolol tartrate 100 mg tablet 50 mg PO BID #180 tab 07/13/19 amlodipine 10 mg tablet 10 mg PO DAILY #90 tab 02/22/20 clopidogrel 75 mg tablet 75 mg PO DAILY #90 tab 02/22/20 hydrochlorothiazide 25 mg tablet 25 mg PO DAILY #90 tab 02/22/20 lisinopril 20 mg tablet 20 mg PO DAILY #90 tab 02/22/20 pravastatin 10 mg tablet 5 mg PO DAILY #45 tab 02/22/20 Allergies Allergy/AdvReac Type Severity Reaction Status Date / Time acetaminophen Allergy Unknown Verified 05/01/20 09:17 oxycodone Allergy Unknown SKIN RASH Verified 05/01/20 09:17 atorvastatin calcium Allergy Verified 05/01/20 09:17 [From Lipitor] amlodipine AdvReac Intermediate LEG EDEMA Verified 05/01/20 10:43 diltiazem AdvReac Intermediate DIZZINESS Verified 05/01/20 09:17 AND LE EDEMA simvastatin AdvReac Unknown MYALGIA Verified 05/01/20 09:17 chlorthalidone AdvReac LEGS Verified 05/01/20 09:17 SWELLING metformin AdvReac THINKS Verified 05/01/20 09:17 GAVE HER A STROKE Review of Systems Constitutional Constitutional: Reports as per HPI, Denies chills, Denies fever(s), Denies headache(s), Denies lethargy and Denies poor appetite Eyes Eyes: Denies change in vision ENT Ears, Nose, Mouth, and Throat: Denies dizziness and Denies headache(s) Cardiovascular Cardiovascular: Reports as per HPI, Denies chest pain, Denies chest pain at rest, Denies chest pain with activity, Reports leg edema (she reports chronic BLE), Denies lightheadedness, Denies radiating jaw, neck or arm pain, Reports palpitations, Denies dyspnea and Denies dyspnea on exertion Respiratory Respiratory: Reports as per HPI, Denies chest congestion, Denies cough, Denies pain on inspiration, Denies pain with cough, Denies dyspnea, Denies dyspnea on exertion and Denies wheezing Gastrointestinal Gastrointestinal: Reports as per HPI, Denies abdominal pain, Denies diarrhea, Denies nausea and Denies vomiting Musculoskeletal Musculoskeletal: Reports as per HPI and Denies back pain Integumentary/Breasts Skin/Breast: Reports as per HPI and Denies rash Neurologic Neurologic: Reports as per HPI, Denies dizziness and Denies headache(s) Endocrine Endocrine: Reports palpitations Allergic/Immunologic Allergic/Immunologic: Denies wheezing PENDING SALE TO [facility] Medical History Angina pectoris, unspecified Cataract CVD (cardiovascular disease) Diabetes type 2 with atherosclerosis of arteries of extremities GERD (gastroesophageal reflux disease) History of nose injury surgical repair Hypercholesterolemia Hypertension Nuclear sclerotic cataract of left eye Osteoarthritis Osteoporosis Peripheral vascular disease Pressure ulcer of left heel, stage 2 Surgical History Carotid endarterectomy (10/19/14) right Coronary Artery Bypass Gaft (CABG) (10/19/14) femoral tibial bypass H/O thumb surgery rt thumb H/O wrist surgery rt wrist History of shoulder surgery lt shoulder History of total knee replacement right knee Hx of neck surgery Status post cataract extraction and insertion of intraocular lens of left eye (12/01/18) Total replacement of hip left Social History Smoking/Tobacco Use Status: Never Alcohol Intake: never Drug use: Never Substance use type: does not use Communication Needs: Corrective Lenses What type of physical activity do you participate in: none Seatbelt use: always Drive 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 or 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 w/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 Working smoke detector in home: Yes Do you feel safe at home: Yes Do you feel safe in your relationship?: Yes Exam Const General: cooperative, healthy appearing, comfortable, no acute distress and well developed Nutritional Appearance: average body habitus and well nourished Orientation: alert, awake and oriented x3 HENMT Head: normal to inspection Ears: hearing grossly normal bilaterally Mouth: moist mucous membranes Chest Chest: normal inspection of the chest, normal palpation of entire chest wall and no crepitus Resp Effort & Inspection: normal respiratory effort, able to speak in complete sentences and no respiratory distress Auscultation: clear to auscultation bilaterally, no rales, no rhonchi and no wheezes Cardio Jugular venous pressure: no JVD Rate: regular rate Rhythm: regular rhythm Heart Sounds: S1 normal, S2 normal and murmur systolic at the left sternal border and at the right sternal border Bruits: no abdominal aortic bruits GI Inspection: normal to inspection, no edema and non-distended Palpation: soft, no hepatosplenomegaly, not firm, no guarding, not rigid and nontender Auscultation: normal bowel sounds Back/Spine/Pelvis Back: no CVA tenderness Thoracic/Lumbar Spine: thoracic and lumbar spine normal to inspection Skin General skin exam: no rashes or lesions noted Trauma: no lacerations or abrasions Neuro General: patient alert, patient awake and patient oriented x3 Cognition: normal cognition Speech: speech normal Gait: normal gait Extrem General: normal to inspection, capillary refill normal, no calf tenderness, normal gait and edema Laterality: bilateral (1+ pitting, she reports is chronic and unchanged) Psych Appearance: grossly normal and well kempt Mental Status: mental status grossly normal Speech and Movement: speech and movement normal
[2020-05-01 09:15] LABS: Abs Immature Grans 0.02 10^3/uL (0.0-0.06); Absolute Basophil Count 0.03 10^3/uL (0.0-0.2); Absolute Eosinophil Count 0.13 10^3/uL (0.0-0.7); Absolute Lymphocyte Count 1.32 10^3/uL (1.2-3.4); Absolute Monocyte Count 0.42 10^3/uL (0.1-0.8); Basophils % 0.4; Eosinophils % 1.9; HCT 41.9 % (36.0-46.0); HGB 13.8 g/dL (11.2-15.7); Immature Grans % 0.3; Lymphocytes % 19.6; MCH 29.6 pg (27.0-33.0); MCHC 32.9 % (32.0-36.0); MCV 89.9 fL (80-95); MPV 10.8 fL (8.0-11.0); Monocytes % 6.3; Neutrophils % 71.5; Nucleated RBC 0 %; Platelet Count 224 10^3/uL (130-400); RBC 4.66 10^6/uL (3.93-5.22); RDW 13.1 % (11.7-14.6); RDW-SD 42.5 fL; WBC 6.72 10^3/uL (4.4-10.8)
[2020-05-01 09:28] LABS: PTT Activated 23.4 sec (21.0-31.4); Prothrombin Time 10.5 sec (9.3-11.0)
[2020-05-01] MEDS: Aspirin 81 MG CHEW 324 MG CH (09:33)
[2020-05-01 09:36] LABS: NT-proBNP 424 pg/mL (<300)
[2020-05-01 09:38] LABS: ALT 34 U/L (14-59); AST 24 U/L (15-37); Albumin 3.9 g/dL (3.4-5.0); Alkaline Phosphatase 90 U/L (46-116); Anion Gap 8.4 mmol/L (3-11); BUN 12 mg/dL (7-18); Bilirubin, Total 0.6 mg/dL (0.2-1.0); CO2 29.6 mmol/L (21.0-32.0); CREATININE 0.81 mg/dL (0.55-1.02); Calcium 9.3 mg/dL (8.5-10.1); Chloride 103 mmol/L (98-107); Glucose 179 mg/dL (74-106); Magnesium 1.9 mg/dL (1.8-2.4); Potassium 3.9 mmol/L (3.5-5.1); Sodium 141 mmol/L (136-145); Total Protein 7.8 g/dL (6.4-8.2)
[2020-05-01 09:42] LABS: Troponin I < 0.05 ng/mL (<0.06)
--- NOTE | 2020-05-01 09:48 | DI.VRAD_ITS ---
PROCEDURE INFORMATION: Exam: XR Chest, 2 Views Exam date and time: 05/01/2020 9:26 AM Age: 84 years old Clinical indication: Other: Palpitations TECHNIQUE: Imaging protocol: XR of the chest Views: 2 views. COMPARISON: [place] CHEST ONE VIEW IN RAD DEPT 06/28/2017 5:28 PM FINDINGS: Lungs: Mild opacity in the left costophrenic angle may represent minimal atelectasis or pneumonia or small left pleural effusion. . Pleural space: Possible small left pleural effusion. Heart/Mediastinum: Unremarkable. No cardiomegaly. Vasculature: Tortuous aorta Bones/joints: Median sternotomy Degenerative changes in the glenohumeral joints IMPRESSION: Mild opacity in the left costophrenic angle may represent minimal atelectasis or pneumonia or small left pleural effusion. . Dictated and Authenticated by: Michelle Ba MD. Ordering:VIDAL Kramer MD
[2020-05-01] MEDS: hydroCHLOROthiazide 25 MG TAB PO (10:32)
[2020-05-01] MEDS: Lisinopril 20 MG TAB PO (10:32)
[2020-05-01] MEDS: amLODIPine 10 MG TAB PO (10:32)
[2020-05-01] MEDS: Metoprolol 50 MG TAB PO (10:32)
--- NOTE | 2020-05-01 10:38 | NUR.NOTE ---
Nursing Note: pt given muffin and milk for taking pills
--- NOTE | 2020-05-01 12:15 | RT.EKG_ITS ---
APPROVED REPORT Exam: Resting ECG Patient Location: E HR:57 bpm ECG Measurements Heart Rate 57 AXIS SD 173 P 19 QRSd 109 QRS -11 QT 460 T 146 QTc 448 Conclusion Sinus bradycardia...rate< 60 Probable left atrial enlargement...P >50mS, <-0.10mV V1 LVH with secondary repolarization abnormality...multi-LVH criteria, abnrm ST-T
[2020-05-01 12:24] LABS: Troponin I < 0.05 ng/mL (<0.06)
== END 2020-05-01 13:14 | disposition home or self-care (01) ==
PROVIDERS: Emergency Provider Physician Assistant; PCP Nurse Practitioner
DX: R00.2 Palpitations (principal); I25.10 Atherosclerotic heart disease of native coronary artery without angina pectoris; E11.65 Type 2 diabetes mellitus with hyperglycemia; I10 Essential (primary) hypertension
CPT/HCPCS: 0296T; 36415; 80053; 93005; 99285; 71046; 83735; 83880; 84484; 85025; 85610; 85730; 93010

== ENCOUNTER 2020-05-18 10:46 | Outpatient (CLI) | payer MEDICARE, OTHER, MEDICAID, SELFPAY ==
--- NOTE | 2020-06-03 11:58 | W.ZIOMONITOR ---
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 ?Patient was in normal sinus rhythm for the majority of the recording with an average heart rate of 56 bpm. ?There were rare PVCs and rare PACs. ?There were 4 episodes of ventricular tachycardia with the longest lasting 8 beats. ?There were 18 episodes of supraventricular tachycardia with the longest lasting 7 beats. ?There were no episodes of atrial fibrillation, no pauses greater than 3 seconds and no evidence of high degree heart block. ?Patient diary events were associated with sinus rhythm sinus tachycardia, and occasional PVC.
== END 2020-05-18 11:06 ==
PROVIDERS: PCP Nurse Practitioner; Visit Provider Nurse Practitioner
DX: R00.2 Palpitations (principal); I47.1 Supraventricular tachycardia; I47.2 Ventricular tachycardia; I49.3 Ventricular premature depolarization

== ENCOUNTER 2020-06-03 11:58 | Outpatient (CLI) | payer MEDICARE, OTHER, MEDICAID, SELFPAY | END 2020-06-03 12:18 | PROVIDERS: PCP Nurse Practitioner; Referring Provider Nurse Practitioner; Visit Provider Internal Medicine Cardiovascular Disease | DX: R00.2 Palpitations (principal); I47.1 Supraventricular tachycardia; I47.2 Ventricular tachycardia; I49.3 Ventricular premature depolarization | CPT/HCPCS: 0298T ==

== ENCOUNTER 2020-09-10 03:51 | Emergency (ER) | payer MEDICARE, OTHER, MEDICAID, SELFPAY ==
[2020-09-10 03:55] VITALS: BP 183/60; PULSE 74; RESP 18; TEMP 37.4; O2SAT 96
--- NOTE | 2020-09-10 04:00 | RT.EKG_ITS ---
APPROVED REPORT Exam: Resting ECG Patient Location: E HR:62 bpm ECG Measurements Heart Rate 62 AXIS ND 166 P 46 QRSd 111 QRS -21 QT 437 T 125 QTc 442 Conclusion Sinus rhythm...normal P axis, V-rate 60- 99 Probable left atrial enlargement...P >50mS, <-0.10mV V1 Incomplete left bundle branch block...QRSd>110mS, terminal axis(-90,-1) LVH with secondary repolarization abnormality...multi-LVH criteria, abnrm ST-T
--- NOTE | 2020-09-10 04:02 | W.ED.GENAD ---
Discharge Plan Disposition Patient Disposition: HOME Condition: Stable Discharge Details Clinical Impression: Essential hypertension Primary Care Provider: Kenna Vargas ED Provider: Anibal Wray Home Meds and New Rx's Prescriptions: Continued clopidogrel [Plavix] 75 mg tablet 75 mg PO DAILY Qty: 90 RF: 3 amlodipine 10 mg tablet 10 mg PO DAILY Qty: 90 RF: 3 hydrochlorothiazide 25 mg tablet 25 mg PO DAILY Qty: 90 RF: 3 lisinopril 20 mg tablet 20 mg PO DAILY Qty: 90 RF: 3 pravastatin 10 mg tablet 5 mg PO DAILY Qty: 45 RF: 3 metoprolol tartrate 100 mg tablet 50 mg PO BID Qty: 180 RF: 3 cholecalciferol (vitamin D3) [Vitamin D3] 400 unit tablet 400 unit PO DAILY RF: 0 multivitamin with minerals 1 EACH tablet 1 ea PO DAILY RF: 0 clobetasol 60 GM ointment 60 gm Topical BID PRNQty: 2 RF: 2 Forward Goal RF: 0 (DME) OneTouch Ultra Test 1 EACH strip 1 ea Miscellaneous DAILY Qty: 100 RF: 3 (DME) lancets [OneTouch UltraSoft Lancets] 1 EACH misc 1 ea Miscellaneous DAILY Qty: 100 RF: 3 Diabetic Shoes Qty: 2 RF: 0 docusate sodium [Colace] 100 mg capsule 100 mg PO TID PRN PRN (Reason: constipation) Qty: 90 RF: 12 ketorolac 0.4 % drops 1 drp OP QID RF: 0 aspirin [Aspir-81] 81 MG tablet,delayed release (DR/EC) 81 mg PO DAILY RF: 0 polyethylene glycol 3350 17 GM powder in packet 17 gm PO DAILY PRN PRN (Reason: Constipation) Qty: 30 RF: 0 Discharge Instructions Instructions: Hypertension (ED) Additional Instructions: you can increase your lisinopril to 40mg daily follow up with your primary care provider within 1 week If you develop severe headache, chest pain, difficulty breathing or weakness return to the emergency department Medical Decision Making 84 yo female with hx of htn, t2dm, cad, cva, hld, pvd, who comes in after she woke up around 1am to use the rest room and felt her face flushed which she states happens when her BP is high. She denies having chest pain, fevers, chills, dyspnea, abdominal pain, headaches, or new weakness (has chronic right leg weakness that is unchanged). She states she feels better now and did not check her BP at home. She arrives caxo4 speaking in full sentences without complaints now. EOMI, perrl, no sensation deficits and no drift. She does have a BP here of 180/60 on arrival, will obtain ecg, troponin and chemistry panel and monitor. She has no headache and no findings to suggest cva so do not feel head ct indicated pt remains stable without complaints other than she is upset her family member was not allowed to come into the room with her, and she was told this was hospital policy due to the pandemic. Her labs are unremarkable, still is hypertensive here without chest pain or headache. I advised she increase her lisinopril to 40mg daily and follow up with her pcp this week. Return precautions also given Differential Diagnosis Differential Diagnosis: hypertension, nstemi, mayte Medical Records Medical records reviewed: Yes I reviewed the patient's medical records. Lab Data Lab results reviewed: Yes I reviewed the patient's lab results. ECG Data Attestation: I personally reviewed and interpreted this ECG (s) as follows: Prior ECG tracings: available for review Interpretation: sinus rhythm, rate of 62, pr 166, qtc 442, lvh, no acute changes from ekg from 04/2020 HPI General Mode of arrival: wheelchair. Date/Time Provider Initiated Documentation: 09/10/20 03:52. Limitations to Documentation: no limitations. Information obtained by: patient. History of Present Illness 84 year old F presents to the emergency department with the chief complaint of face was flushed, Patient started experiencing this hour(s) (3) and it has been now resolved. No relieving factors improve symptom(s), No exacerbating factors reported . Patient notes no other symptoms.. Patient did receive the following treatments prior to arrival, none Related Data Home Medications Medication Instructions Recorded Confirmed multivitamin with minerals 1 ea PO DAILY 12/02/12 09/10/20 aspirin [Aspir-81] 81 mg PO DAILY 10/27/14 09/10/20 clobetasol 60 gm TOPICAL BID PRN #2 tube 01/13/15 09/10/20 Forward Goal 03/08/15 08/22/20 polyethylene glycol 3350 17 gm PO DAILY PRN PRN #30 packet 07/25/17 09/10/20 OneTouch Ultra Test #100 strip 08/26/17 09/10/20 lancets [OneTouch UltraSoft #100 ea 08/26/17 09/10/20 Lancets] docusate sodium 100 mg capsule 100 mg PO TID PRN PRN #90 cap 07/16/18 09/10/20 cholecalciferol (vitamin D3) 10 400 unit PO DAILY tab 11/17/18 09/10/20 mcg (400 unit) tablet ketorolac 0.4 % eye drops 1 drp OP QID ml 04/07/19 09/10/20 amlodipine 10 mg tablet 10 mg PO DAILY #90 tab 02/22/20 09/10/20 clopidogrel 75 mg tablet 75 mg PO DAILY #90 tab 02/22/20 09/10/20 hydrochlorothiazide 25 mg tablet 25 mg PO DAILY #90 tab 02/22/20 09/10/20 lisinopril 20 mg tablet 20 mg PO DAILY #90 tab 02/22/20 09/10/20 pravastatin 10 mg tablet 5 mg PO DAILY #45 tab 02/22/20 09/10/20 metoprolol tartrate 100 mg tablet 50 mg PO BID #180 tab 08/22/20 09/10/20 Previous Rx's Medication Instructions Recorded polyethylene glycol 3350 17 gm PO DAILY PRN PRN #30 packet 07/25/17 OneTouch Ultra Test #100 strip 08/26/17 lancets [OneTouch UltraSoft #100 ea 08/26/17 Lancets] docusate sodium 100 mg capsule 100 mg PO TID PRN PRN #90 cap 07/16/18 amlodipine 10 mg tablet 10 mg PO DAILY #90 tab 02/22/20 clopidogrel 75 mg tablet 75 mg PO DAILY #90 tab 02/22/20 hydrochlorothiazide 25 mg tablet 25 mg PO DAILY #90 tab 02/22/20 lisinopril 20 mg tablet 20 mg PO DAILY #90 tab 02/22/20 pravastatin 10 mg tablet 5 mg PO DAILY #45 tab 02/22/20 metoprolol tartrate 100 mg tablet 50 mg PO BID #180 tab 08/22/20 Allergies Allergy/AdvReac Type Severity Reaction Status Date / Time acetaminophen Allergy Unknown Verified 09/10/20 04:04 oxycodone Allergy Unknown SKIN RASH Verified 09/10/20 04:04 atorvastatin calcium Allergy Verified 09/10/20 04:04 [From Lipitor] amlodipine AdvReac Intermediate LEG EDEMA Verified 09/10/20 04:04 diltiazem AdvReac Intermediate DIZZINESS Verified 09/10/20 04:04 AND LE EDEMA simvastatin AdvReac Unknown MYALGIA Verified 09/10/20 04:04 chlorthalidone AdvReac LEGS Verified 09/10/20 04:04 SWELLING metformin AdvReac THINKS Verified 09/10/20 04:04 GAVE HER A STROKE General CINDY: 2 Review of Systems All systems reviewed & are unremarkable except as noted in HPI and below Constitutional Constitutional: Denies chills, Denies fever(s) and Denies weakness Cardiovascular Cardiovascular: Denies chest pain and Denies dyspnea Respiratory Respiratory: Denies cough and Denies dyspnea Gastrointestinal Gastrointestinal: Denies abdominal pain, Denies nausea and Denies vomiting Musculoskeletal Musculoskeletal: Denies joint swelling Neurologic Neurologic: Denies weakness PFSH Medical History Angina pectoris, unspecified Cataract CVD (cardiovascular disease) Diabetes type 2 with atherosclerosis of arteries of extremities GERD (gastroesophageal reflux disease) History of nose injury surgical repair Hypercholesterolemia Hypertension Nuclear sclerotic cataract of left eye Osteoarthritis Osteoporosis Peripheral vascular disease Pressure ulcer of left heel, stage 2 Surgical History Carotid endarterectomy (10/19/14) right Coronary Artery Bypass Gaft (CABG) (10/19/14) femoral tibial bypass H/O thumb surgery rt thumb H/O wrist surgery rt wrist History of shoulder surgery lt shoulder History of total knee replacement right knee Hx of neck surgery Status post cataract extraction and insertion of intraocular lens of left eye (12/01/18) Total replacement of hip left Social History Smoking/Tobacco Use Status: Never Smoking risk assessment performed?: Yes Alcohol Intake: never Drug use: Never Substance use type: does not use Communication Needs: Corrective Lenses What type of physical activity do you participate in: none Seatbelt use: always Drive intox or ride w/intox driver license examiner: No Working smoke detector in home: Yes Do you feel safe at home: Yes Do you feel safe in your relationship?: Yes Exam Const General: no acute distress Orientation: alert HENMT Head: normal to inspection Ears: external ears normal General nose exam: external nose normal Mouth: moist mucous membranes Eyes General: appearance normal, both eyes and all related structures Neck Neck: normal visual inspection Resp Effort & Inspection: normal respiratory effort and able to speak in complete sentences Cardio Rate: regular rate Skin General skin exam: no rashes or lesions noted Neuro General: patient alert and patient oriented x3 Extrem General: normal to inspection Psych Mental Status: mental status grossly normal
[2020-09-10 04:25] LABS: Abs Immature Grans 0.02 10^3/uL (0.0-0.06); Absolute Basophil Count 0.04 10^3/uL (0.0-0.2); Absolute Eosinophil Count 0.14 10^3/uL (0.0-0.7); Absolute Lymphocyte Count 1.48 10^3/uL (1.2-3.4); Absolute Monocyte Count 0.52 10^3/uL (0.1-0.8); Absolute Neutrophil Count 7.04 10^3/uL (1.2-6.7); Basophils % 0.4; Eosinophils % 1.5; HCT 40.9 % (36.0-46.0); HGB 13.5 g/dL (11.2-15.7); Immature Grans % 0.2; MCH 29.7 pg (27.0-33.0); MCV 90.1 fL (80-95); MPV 10.8 fL (8.0-11.0); Monocytes % 5.6; Neutrophils % 76.3; Nucleated RBC 0 %; Platelet Count 234 10^3/uL (130-400); RBC 4.54 10^6/uL (3.93-5.22); RDW 12.5 % (11.7-14.6); RDW-SD 41.5 fL; WBC 9.24 10^3/uL (4.4-10.8)
[2020-09-10 04:42] LABS: ALT 34 U/L (14-59); AST 22 U/L (15-37); Alkaline Phosphatase 83 U/L (46-116); Anion Gap 12.8 mmol/L (3-11); BUN 12 mg/dL (7-18); Bilirubin, Total 0.5 mg/dL (0.2-1.0); CO2 27.2 mmol/L (21.0-32.0); CREATININE 0.9 mg/dL (0.55-1.02); Calcium 9.3 mg/dL (8.5-10.1); Chloride 101 mmol/L (98-107); Estimated GFR 59.94 (mL/min/1.73m2); Glucose 195 mg/dL (74-106); Potassium 3.6 mmol/L (3.5-5.1); Sodium 141 mmol/L (136-145); Total Protein 7.8 g/dL (6.4-8.2)
[2020-09-10 04:44] LABS: Troponin I < 0.05 ng/mL (<0.06)
[2020-09-10 05:24] VITALS: BP 183/53; PULSE 59; RESP 20; O2SAT 99
--- NOTE | 2020-09-10 05:41 | NUR.NOTE ---
Nursing Note: referral faxed to care management 09/10/2020 @ 0543 [address]
== END 2020-09-10 05:22 | disposition home or self-care (01) ==
PROVIDERS: Emergency Provider Emergency Medicine; PCP Nurse Practitioner
DX: I10 Essential (primary) hypertension (principal)
CPT/HCPCS: 80053; 93005; 99283; 84484; 85025; 93010

== ENCOUNTER 2021-01-18 05:44 | Emergency (ER) | payer MEDICARE, OTHER, MEDICAID, SELFPAY ==
[2021-01-18] VITALS (57 sets, daily range): BP systolic 140–197; BP diastolic 52–80; PULSE 57–94; RESP 10–25; TEMP 36.8–36.9; O2SAT 94–99
--- NOTE | 2021-01-18 05:45 | RT.EKG_ITS ---
APPROVED REPORT Exam: Resting ECG Reason for Exam: syncope Patient Location: E HR:65 bpm ECG Measurements Heart Rate 65 AXIS NH 169 P 49 QRSd 115 QRS -22 QT 429 T 130 QTc 446 Conclusion Sinus rhythm...normal P axis, V-rate 60- 99 Probable left atrial enlargement...P >50mS, <-0.10mV V1 Incomplete left bundle branch block...QRSd>110mS, terminal axis(-90,-1) LVH with secondary repolarization abnormality...multi-LVH criteria, abnrm ST-T no acute changes from prior ekg
--- NOTE | 2021-01-18 06:00 | DI.CT_ITS ---
Exam(s) CT BRAIN NECK CTA EXAM: CT BRAIN NECK CTA CLINICAL HISTORY: vertigo, ?dissection. TECHNIQUE: Imaging Protocol: Axial CT angiography was performed with multi-slice acquisition and mu lti-planar and/or 3D reconstructions. CONTRAST MATERIAL: Intravenous: Omnipaque 350 Contrast volume:85 mL COMPARISON: No exams were available for comparison FINDINGS: CTA Neck W: Aortic arch anatomy: The aortic arch anatomy is bovine in configuration Anterior circulation: There is no stenosis at the origin of the common iliac arteries and both common iliac arteries exhibi t an normal diameters. However, there is severe focal stenosis at the origin of the left proximal internal carotid artery, a pproximately 80 percent. Above this level the left internal carotid artery in the upper neck appears nicely patent. There is some eccentric mild plaque noted in the distal right common carotid artery. There is mild s tenosis at the origin of the right internal carotid artery, approximately 20 percent. Above this lev el this vessel is shown to be patent in the upper right neck and skull base. Posterior circulation: Both vertebral arteries originate in conventional fashion off of the subclavian arteries. There is m ild stenosis at the origin of the right vertebral artery. No obvious stenosis at the origin of the l eft vertebral artery. Also no significant stenosis in the subclavian artery proximal to the vertebra l artery takeoff point. The vertebral arteries ascend in the foramen transverse area with the right vertebral artery being do minant exhibiting luminal diameter 3.5 millimeters. Diameter of left vertebral artery is approximate ly 50 percent of the diameter of the right vertebral artery. At the skull base both vessels contribu te to the formation of the basilar artery but the distal most aspect the left vertebral artery at thi s level is quite thin. CTA Brain W: Anterior circulation: Both internal carotid arteries are patent in the skull base and carotid canals. The intracavernous i nternal carotid arteries are peripherally calcified but otherwise patent without tight stenosis. Sup raclinoid aspects are patent and nonaneurysmal. Both middle cerebral arteries are patent demonstrate d be patent out to the sylvian fissure branches. No aneurysms evident. Both A1 segments are patent as are the anterior cerebral arteries and there is no evidence of aneurys m at the level of the anterior communicating artery. Posterior circulation: Basilar artery is formed at the skull base by the dominant right vertebral artery and very thin dista l left vertebral artery. The basilar artery ascends in the midline with lower normal luminal diamete r and no evidence of intraluminal thrombus nor dissection. There is no aneurysm of the tip of the ba silar artery. Distally the basilar artery gives off patent bilateral superior cerebellar arteries. Above this level it terminates as posterior cerebral arteries. The right posterior cerebral artery i s patent. The left posterior cerebral artery exhibits a tight stenosis approximately 8 millimeters d istal to its origin. Beyond this there is moderate disease in the opacified left posterior cerebral artery. No obvious posterior communicating arteries are seen on either side of the [id number]. CT BRAIN: There is no evidence of intracranial hemorrhage, mass effect, or shift of midline structures. There are no extra-axial fluid collections. Ventricles are not enlarged or shifted and there is no blood w ithin the ventricular system nor within the basal cisterns. There are no ring enhancing lesions in t he brain and no abnormal meningeal enhancement. IMPRESSION: 1. There is severe stenosis in the proximal left internal carotid artery in the neck. Mild stenosis in the proximal right internal carotid artery. 2. Right vertebral artery is dominant. The distal most left vertebral artery at the skull base is q uite thin but not occluded. 3. There is a tight focal stenosis in the left posterior cerebral artery approximately 8 millimeter s distal to its origin. There are no ring enhancing lesions in the brain nor abnormal meningeal enhancement RADIATION DOSE DELIVERED: 1,724.3mGy.cm Total DLP DATA REPOSITORY: All CT scans at this facility are submitted to the National Radiology Data Registry (NRDR) Dose Index Registry (DIR) with the [employer] ([employer]). RADIATION OPTIMIZATION: All CT scans at this facility use at least one of these dose optimization te chniques: automated exposure control; mA and/or kV adjustment per patient size (includes targeted exa ms where dose is matched to clinical indication); or iterative reconstruction.
[2021-01-18 06:11] LABS: Abs Immature Grans 0.04 10^3/uL (0.0-0.06); Absolute Basophil Count 0.04 10^3/uL (0.0-0.2); Absolute Eosinophil Count 0.12 10^3/uL (0.0-0.7); Absolute Lymphocyte Count 1.25 10^3/uL (1.2-3.4); Absolute Monocyte Count 0.45 10^3/uL (0.1-0.8); Absolute Neutrophil Count 6.59 10^3/uL (1.2-6.7); Basophils % 0.5; Eosinophils % 1.4; HCT 41.1 % (36.0-46.0); HGB 13.4 g/dL (11.2-15.7); Immature Grans % 0.5; Lymphocytes % 14.7; MCH 29.4 pg (27.0-33.0); MCHC 32.6 % (32.0-36.0); MCV 90.1 fL (80-95); MPV 11.1 fL (8.0-11.0); Monocytes % 5.3; Neutrophils % 77.6; Nucleated RBC 0 %; Platelet Count 208 10^3/uL (130-400); RBC 4.56 10^6/uL (3.93-5.22); RDW 12.8 % (11.7-14.6); WBC 8.49 10^3/uL (4.4-10.8)
--- NOTE | 2021-01-18 06:11 | ED.GENADUL_ITS ---
Discharge Plan Disposition Patient Disposition: HOME Condition: Improving Discharge Details Clinical Impression: Vertigo Primary Care Provider: Kenna Vargas ED Provider: Xiao Coronel Home Meds and New Rx's Prescriptions: New meclizine 12.5 mg tablet 12.5 mg PO TID PRN (Reason: dizziness) Qty: 14 RF: 0 Continued clopidogrel [Plavix] 75 mg tablet 75 mg PO DAILY Qty: 90 RF: 3 amlodipine 10 mg tablet 10 mg PO DAILY Qty: 90 RF: 3 hydrochlorothiazide 25 mg tablet 25 mg PO DAILY Qty: 90 RF: 3 pravastatin 10 mg tablet 5 mg PO DAILY Qty: 45 RF: 3 metoprolol tartrate 100 mg tablet 50 mg PO BID Qty: 180 RF: 3 cholecalciferol (vitamin D3) [Vitamin D3] 400 unit tablet 400 unit PO DAILY RF: 0 lisinopril 40 mg tablet 40 mg PO DAILY Qty: 90 RF: 3 multivitamin with minerals 1 EACH tablet 1 ea PO DAILY RF: 0 clobetasol 60 GM ointment 60 gm Topical BID PRNQty: 2 RF: 2 Forward Goal RF: 0 (DME) OneTouch Ultra Test 1 EACH strip 1 ea Miscellaneous DAILY Qty: 100 RF: 3 (DME) lancets [OneTouch UltraSoft Lancets] 1 EACH misc 1 ea Miscellaneous DAILY Qty: 100 RF: 3 Diabetic Shoes Qty: 2 RF: 0 docusate sodium [Colace] 100 mg capsule 100 mg PO TID PRN PRN (Reason: constipation) Qty: 90 RF: 12 ketorolac 0.4 % drops 1 drp OP QID RF: 0 aspirin [Aspir-81] 81 MG tablet,delayed release (DR/EC) 81 mg PO DAILY RF: 0 polyethylene glycol 3350 17 GM powder in packet 17 gm PO DAILY PRN PRN (Reason: Constipation) Qty: 30 RF: 0 Discharge Instructions Instructions: Vertigo (ED) Additional Instructions: Drink plenty of fluids and get plenty of rest. Take the meclizine as needed and directed for dizziness. Follow-up with your primary care doctor in 1 week. Follow-up with the [facility] neurology clinic for reevaluation and with [facility] vascular surgery for blockages in your arteries noted on imaging today after your evaluation with neurology. Return to the emergency department with any worsening or new concerning symptoms. Referrals: Bryanna Vasques MD [ [facility] STAFF PHYSICIAN] - Discharge Data Discharge Date/Time-TO BE ENTERED AT DEPARTURE: 01/18/21 15:11 Discharge Physician: Xiao Coronel Medical Decision Making <Anibal Wray MD - Last Filed: 01/18/21 06:53> 85 yo female with hx of coronary artery disease, prior cva, DM, htn, gerd, hyperlipidemia, who comes in with feeling dizzy primarily when she stands or moves her head. She states she woke up to use the restroom around 3am this morning and noticed when she stood up the room was spinning and she felt unsteady, denies falls, loss of consciousness, chest pain or dyspnea. She used the restroom and went to bed and fell back asleep but then when she awoke had continued symptoms so her daughter brought her here. She states she felt fine yesterday without symptoms. She currently denies headache, neck pain, dyspnea, chest pain, abdomen pain, weakness. She has no symptoms when at rest. She has no focal motor deficits, clear speech, caox4 and NIH of 0 with reassuring HINTS exam so doubt central cause for her symptoms. Her symptoms most likely seem typical for peripheral vertigo vs orthostasis though given her age and risk factors will obtain ecg and troponin to evaluate for possible acs though this seems unlikely based on symptoms. Will also evaluate for possible carotid or vertebral dissection with cta. She went to bed feeling well and woke up with the symptoms and exam not consistent with cva so do not feel she would be a lytic candidate even if this was a cva. Will also evaluate for electrolyte abnormalities and possible uti. patient remains stable, labs unremarkable awaiting ua and ct results. Discussed with patient, if cta negative will reassess response to meclizine and obtain delta troponin. If improvement in symptoms and continued negative troponin can likely be discharged. Will be signed out to oncoming provider Differential Diagnosis Differential Diagnosis: peripheral vertigo, orthostasis, uti, electrolyte abnormality Medical Records Medical records reviewed: Yes I reviewed the patient's medical records. Lab Data Lab results reviewed: Yes I reviewed the patient's lab results. ECG Data Attestation: I personally reviewed and interpreted this ECG (s) as follows: Prior ECG tracings: available for review Interpretation: sinus rhythm, rate of 65, pr 169, qtc 446, no acute st t wave ischemic findings compared to prior ekg <Xiao Coronel DO - Last Filed: 01/19/21 08:55> 0730 --please see Dr. Wray's note for initial presentation, exam and plan. Case endorsed to follow-up on CTA head and neck and final disposition. If symptoms completely resolved and negative troponin and EKG, patient could potentially be discharged home. If symptoms remain, consider MRI. 0745 --CTA head and neck note left P1 NIGHT GUARD stenosis and possible left P3 ischemia and critical L proximal ICA stenosis with concern for thromboembolism and recommend MRI for further evaluation. Discussed with Dr. Kahn who recommends MRI brain and MRA brain and neck. Images pushed to [facility] neurology for recommendations. 0915 --discussed with [facility] neurology who reviewed the CTA head and neck. Will push the MRI/MRA images for their review. Treatment plan depends on MRI/MRA findings. If she has a stroke in the left PICA, would expect an MCA infarct and her symptoms do not appear that they correlate. If MRI/MRA negative, these findings may be chronic and her symptoms may be due to peripheral vertigo. She may eventually need intervention for her critical carotid stenosis. 0945 --MRI brain negative for acute CVA. MRA brain noted critical focal narrowing in the left NIGHT GUARD but otherwise relatively unremarkable anterior intracranial circulation. Images pushed to [facility] neurology for review. Urinalysis notes 5-10 RBCs but no evidence of acute infection. Patient reassessed and she states she does feel better. Repeat troponin negative. Repeat EKG unchanged. If [facility] has no other acute recommendations, will feed and attempt to ambulate. 1130 --Case discussed with both Dr. Vasques and [facility] neurology. Agree that as patient has no focal deficits, likely this is a peripheral vertigo. Patient is already on dual antiplatelet therapy and statin so no other acute medication recommendations. Dr. Vasques recommends that patient follow-up with neurology as well as vascular surgery at [facility]. [facility] neurology states they will make an appointment for the patient at the stroke clinic for her to be evaluated first before seeing vascular surgery. 1230 --attempted to ambulate patient but she complained of some lightheadedness. She denies any spinning sensation. Will give additional fluids and another dose of meclizine and reassess. 1430 --patient was able to eat and ambulated and denied any complaints of dizziness and would like to go home. Her niece Jessica will be taking her home. A prescription for meclizine sent electronically to her pharmacy. Patient placed on care management list to help arrange for a follow-up appointment with [facility] neurology/stroke clinic. Usual and customary return precautions given prior to discharge. Medical Records Medical records reviewed: Yes I reviewed the patient's medical records. Imaging Data Radiologic Study: Radiologist's impression: CT Angiography Head With Contrast, Arteriography Exam date and time: 01/18/2021 6:12 AM Age: 85 years old Clinical indication: Other: Vertigo, ? dissection TECHNIQUE: Imaging protocol: Computed tomography angiography of the head with contrast. Exam focused on the arteries. 3D rendering (Not supervised by radiologist): MIP and/or 3D reconstructed images were created by the technologist. Radiation optimization: All CT scans at this facility use at least one of these dose optimization techniques: automated exposure control; mA and/or kV adjustment per patient size (includes targeted exams where dose is matched to clinical indication); or iterative reconstruction. Contrast material: OMNIPAQUE 350; Contrast volume: 85 ml; Contrast route: INTRAVENOUS (IV); COMPARISON: CT HEAD WITHOUT CONTRAST 06/28/2017 7:18 PM FINDINGS: ANTERIOR CIRCULATION: Right internal carotid artery: Unremarkable. Intracranial segment is patent with no significant stenosis. No aneurysm. Right middle cerebral artery: Unremarkable. No occlusion or significant stenosis. No aneurysm. Right anterior cerebral artery: Unremarkable. No occlusion or significant stenosis. No aneurysm. Left internal carotid artery: Unremarkable. Intracranial segment is patent with no significant stenosis. No aneurysm. Left middle cerebral artery: Unremarkable. No occlusion or significant stenosis. No aneurysm. Left anterior cerebral artery: Unremarkable. No occlusion or significant stenosis. No aneurysm. POSTERIOR CIRCULATION: Right vertebral artery: Unremarkable. No occlusion or significant stenosis. No aneurysm. Left vertebral artery: Unremarkable. No occlusion or significant stenosis. No aneurysm. Basilar artery: Unremarkable. No occlusion or significant stenosis. No aneurysm. Right posterior cerebral artery: Unremarkable. No occlusion or significant stenosis. No aneurysm. Left posterior cerebral artery: High-grade left P1 NIGHT GUARD stenosis potentially related to in situ plaque versus nonocclusive thromboembolism. The distal branches of the left NIGHT GUARD, the P3 branches in the perimesencephalic region are poorly visualized. This may reflect anatomic variation. Clinical correlation however recommended to assess for left-sided peripheral P3 ischemia and an MRI could be performed as needed for further evaluation. Brain: See Left posterior cerebral artery finding. Cerebral ventricles: No ventriculomegaly. Bones/joints: Unremarkable. No acute fracture. Soft tissues: Unremarkable. IMPRESSION: 1. High-grade left P1 NIGHT GUARD stenosis potentially related to in situ plaque versus nonocclusive thromboembolism. 2. The distal branches of the left NIGHT GUARD, the P3 branches in the perimesencephalic region are poorly visualized. This may reflect anatomic variation. Clinical correlation however recommended to assess for left-sided peripheral P3 ischemia and an MRI could be performed as needed for further evaluation. CT Angiography Neck With Contrast Exam date and time: 01/18/2021 6:12 AM Age: 85 years old Clinical indication: Other: Vertigo, ? dissection TECHNIQUE: Imaging protocol: Computed tomography angiography of the neck with contrast. 3D rendering (Not supervised by radiologist): MIP and/or 3D reconstructed images were created by the technologist. Radiation optimization: All CT scans at this facility use at least one of these dose optimization techniques: automated exposure control; mA and/or kV adjustment per patient size (includes targeted exams where dose is matched to clinical indication); or iterative reconstruction. Contrast material: OMNIPAQUE 350; Contrast route: INTRAVENOUS (IV); COMPARISON: CT HEAD WITHOUT CONTRAST 06/28/2017 7:18 PM FINDINGS: Right common carotid artery: No stenosis. No dissection or occlusion. Right internal carotid artery: No stenosis of the extracranial segment. No dissection or occlusion. Right external carotid artery: No occlusion or stenosis of the origin. Left common carotid artery: No stenosis. No dissection or occlusion. Left internal carotid artery: Critical left proximal ICA stenosis secondary to predominantly calcified plaque. Left external carotid artery: No occlusion or stenosis of the origin. Right vertebral artery: No stenosis. No dissection or occlusion. Left vertebral artery: No stenosis. No dissection or occlusion. Soft tissues: Normal. No significant soft tissue swelling. Bones/joints: No acute fracture. IMPRESSION: Critical left proximal ICA stenosis secondary to predominantly calcified plaque. MR BRAIN WO CLINICAL HISTORY: High-grade L P1 stenosis, poss P3 ischemia on cta TECHNIQUE: Multiplanar multisequence MRI of the brain was performed. COMPARISON: CT CT BRAIN NECK CTA from 01/18/[address] BRAIN NECK CTA from 01/18/2021 FINDINGS: CEREBRAL PARENCHYMA: There is no evidence of intracranial hemorrhage, mass effect, or shift of midline structures. There are no extra-axial fluid collections. Ventricles are not enlarged or shifted. Amount of involutional changes consistent with this patient's advanced age. There is no significant focal signal abnormality in the cerebellar hemispheres nor within the stephan, midbrain, and thalami. Multiple small foci of periventricular and subcortical white matter signal abnormality consistent with chronic small vessel ischemic changes. These are nonhemorrhagic and are not associated with surrounding edema nor abnormal signal on diffusion imaging to suggest acute ischemic event. PITUITARY GLAND: No mass nor parasellar abnormality. No obvious abnormality in the cavernous sinuses. FLOW VOIDS: The expected flow void are noted. No evidence of obvious aneurysm nor obvious vascular malformation. PARANASAL SINUSES: Left maxillary sinus appears diminutive and with medial wall defect from probable prior surgery. Mild mucosal thickening. ORBITS: No obvious findings. IMPRESSION: No evidence of acute infarct nor hemorrhage. There are multiple foci of white matter signal abnormality consistent with chronic small vessel disease changes. See separate MRA and CTA dictations. MR ANGIO BRAIN WO CLINICAL HISTORY: High grade P1 stenosis, poss P3 ischemia on cta TECHNIQUE: MRA PERFORMED WITH [id number] SEQUENCE (NO IV CONTRAST) COMPARISON: CT CT BRAIN NECK CTA from 01/18/[address] BRAIN NECK CTA from 01/18/2021 FINDINGS: Anterior circulation: Both internal carotid arteries are patent in the skull base-carotid canals as well as within the cavernous sinuses and the supraclinoid aspects are patent with no aneurysms. Both middle cerebral arteries are patent out to the sylvian fissure branches. Also no aneurysms in these vessels. Both A1 segments are patent as are the anterior cerebral arteries and there is no evidence of aneurysm at the level of the anterior communicating artery. Posterior circulation: Basilar artery is formed at the skull base by the dominant right vertebral arter y and thin left vertebral artery. Lumen of the distal most cm of the left vertebral artery is quite narrow. The basilar artery ascends in the midline with normal luminal diameter and no evidence of intraluminal thrombus. Distally it gives off patent bilateral superior cerebellar arteries. Above this level it terminates as the posterior cerebral arteries. The right posterior cerebral artery appears patent. There is a significant focal narrowing in the left posterior cerebral artery located 8 millimeters distal to its origin. Also atherosclerotic disease more distally in this vessel at P3 segment and IMPRESSION: 1. There is critical focal narrowing in the left posterior cerebral artery approximately 8 millimeters distal to its origin. Also some disease more distally in this vessel at the P3 segment 2. Relatively unremarkable anterior intracranial circulation. See separate brain MRI report. MR ANGIO NECK WO CLINICAL HISTORY: Critical P1 proximal ICA stenosis. TECHNIQUE: MRA PERFORMED WITHOUT IV CONTRAST USING [id number] SEQUENCE CONTRAST MATERIAL: IV Contrast: NONE . COMPARISON: RECENT CTA STUDY FINDINGS: ANTERIOR CIRCULATION: This noninfused study is suboptimal for evaluating the origin the great vessels off of the aortic arch. However recent CT a did not reveal significant stenosis at the origin these vessels. Both common carotid arteries exhibit normal luminal diameters their mid levels. At the Level of the carotid bifurcations there is significant narrowing of the luminal diameter in the proximal left internal carotid artery, approximately 80 percent stenosis. At the right carotid bifurcation there is no significant stenosis but there is significant stenosis in the proximal right internal carotid artery also evident which appears approximately 80 percent. This is in the 1st cm of this vessel. Normal luminal diameter in the neck above this level. POSTERIOR CIRCULATION: Both vertebral arteries originated conventional fashion off of the subclavian arteries. Right vertebral artery is dominant. Both vertebral arteries contribute to the formation of the basilar artery at the skull base. IMPRESSION: Abnormal study. There is critical stenosis at the origin of the left internal carotid artery. There also appears to be significant stenosis in the proximal aspect of the right internal carotid artery although this does not correspond to the finding on the CT angio (which does not reveal critical stenosis at proximal right ICA. Please note that this study is a noninfused MRI of the neck. Both vertebral arteries are patent. No dissection. No intraluminal thrombus. Both contribute to the formation of the basilar artery. The right vertebral artery is dominant. Lab Data Lab results reviewed: Yes I reviewed the patient's lab results. Labs: Laboratory Tests Range/Units 01/18/21 01/18/21 01/18/21 06:00 06:00 09:00 WBC (4.4-10.8) 10^3/uL 8.49 RBC (3.93-5.22) 10^6/uL 4.56 Hgb (11.2-15.7) g/dL 13.4 Hct (36.0-46.0) % 41.1 MCV (80-95) fL 90.1 MCH (27.0-33.0) pg 29.4 MCHC (32.0-36.0) % 32.6 RDW (11.7-14.6) % 12.8 Plt Count (130-400) 10^3/uL 208 MPV (8.0-11.0) fL 11.1 H Immature Gran % 0.5 Neutrophils % 77.6 Lymphocytes % 14.7 Monocytes % 5.3 Eosinophils % 1.4 Basophils % 0.5 Nucleated RBC % % 0 Absolute Neutrophils (1.2-6.7) 10^3/uL 6.59 Absolute Lymphocytes (1.2-3.4) 10^3/uL 1.25 Absolute Monocytes (0.1-0.8) 10^3/uL 0.45 Absolute Eosinophils (0.0-0.7) 10^3/uL 0.12 Absolute Basophils (0.0-0.2) 10^3/uL 0.04 Sodium (136-145) mmol/L 143 Potassium (3.5-5.1) mmol/L 3.7 Chloride (98-107) mmol/L 104 Carbon Dioxide (21.0-32.0) mmol/L 26.5 Anion Gap (3-11) mmol/L 12.5 H BUN (7-18) mg/dL 13 Creatinine (0.55-1.02) mg/dL 0.9 Estimated GFR/1.73 m2 (mL/min/1.73m2) 59.80 Glucose (74-106) mg/dL 205 H Calcium (8.5-10.1) mg/dL 9.2 Magnesium (1.8-2.4) mg/dL 2.0 Total Bilirubin (0.2-1.0) mg/dL 0.5 AST (15-37) U/L 21 ALT (14-59) U/L 34 Alkaline Phosphatase (46-116) U/L 84 Troponin I (<0.06) ng/mL < 0.05 Total Protein (6.4-8.2) g/dL 7.9 Albumin (3.4-5.0) g/dL 4.0 TSH (0.36-3.74) uIU/mL 4.43 H Free T4 (0.76-1.46) ng/dL 1.23 Urine Color (Yellow) Yellow Urine Clarity (Clear) Clear Urine pH (5-8) 8.5 H Ur Specific [place] (1.005-1.025) 1.015 Urine Protein (Negative) mg/dL 30 H Urine Ketones (Negative) mg/dL Trace H Urine Blood (Negative) Trace-lysed H Urine Nitrite (Negative) Negative Urine Bilirubin (Negative) Negative Urine Urobilinogen (Up TO 0.2) EU/dL 0.2 Ur Leukocyte Esterase (Negative) Negative Urine RBC (0-2) HPF 5-10 H Urine WBC (0-5) HPF 0-2 Ur Epithelial Cells (Negative) HPF Rare Urine Crystals (Negative) HPF Negative Urine Bacteria (Negative) HPF Rare Urine Casts (Negative) LPF Negative Urine Mucus (Negative) Negative Urine Other (Negative) Negative Ur Culture Indicated? No Urine Glucose (Negative) mg/dL 100 Range/Units 01/18/21 09:30 WBC (4.4-10.8) 10^3/uL RBC (3.93-5.22) 10^6/uL Hgb (11.2-15.7) g/dL Hct (36.0-46.0) % MCV (80-95) fL MCH (27.0-33.0) pg MCHC (32.0-36.0) % RDW (11.7-14.6) % Plt Count (130-400) 10^3/uL MPV (8.0-11.0) fL Immature Gran % Neutrophils % Lymphocytes % Monocytes % Eosinophils % Basophils % Nucleated RBC % % Absolute Neutrophils (1.2-6.7) 10^3/uL Absolute Lymphocytes (1.2-3.4) 10^3/uL Absolute Monocytes (0.1-0.8) 10^3/uL Absolute Eosinophils (0.0-0.7) 10^3/uL Absolute Basophils (0.0-0.2) 10^3/uL Sodium (136-145) mmol/L Potassium (3.5-5.1) mmol/L Chloride (98-107) mmol/L Carbon Dioxide (21.0-32.0) mmol/L Anion Gap (3-11) mmol/L BUN (7-18) mg/dL Creatinine (0.55-1.02) mg/dL Estimated GFR/1.73 m2 (mL/min/1.73m2) Glucose (74-106) mg/dL Calcium (8.5-10.1) mg/dL Magnesium (1.8-2.4) mg/dL Total Bilirubin (0.2-1.0) mg/dL AST (15-37) U/L ALT (14-59) U/L Alkaline Phosphatase (46-116) U/L Troponin I (<0.06) ng/mL < 0.05 Total Protein (6.4-8.2) g/dL Albumin (3.4-5.0) g/dL TSH (0.36-3.74) uIU/mL Free T4 (0.76-1.46) ng/dL Urine Color (Yellow) Urine Clarity (Clear) Urine pH (5-8) Ur Specific [place] (1.005-1.025) Urine Protein (Negative) mg/dL Urine Ketones (Negative) mg/dL Urine Blood (Negative) Urine Nitrite (Negative) Urine Bilirubin (Negative) Urine Urobilinogen (Up TO 0.2) EU/dL Ur Leukocyte Esterase (Negative) Urine RBC (0-2) HPF Urine WBC (0-5) HPF Ur Epithelial Cells (Negative) HPF Urine Crystals (Negative) HPF Urine Bacteria (Negative) HPF Urine Casts (Negative) LPF Urine Mucus (Negative) Urine Other (Negative) Ur Culture Indicated? Urine Glucose (Negative) mg/dL ECG Data Attestation: I personally reviewed and interpreted this ECG (s) as follows: Interpretation: #1 --Rate of 65, sinus, incomplete left bundle branch block. LVH. ST depression and T wave inversion in [address] depression in V5 and V6. No STEMI. #2 --Rate of 63, sinus, PACs. LVH. Incomplete left bundle branch block. Few inversion and ST depression in [address] depression in V5 V6. No STEMI. No acute change from previous. HPI <Anibal Wray MD - Last Filed: 01/18/21 06:53> General Mode of arrival: ambulatory . Date/Time Provider Initiated Documentation: 01/18/21 05:45 . Limitations to Documentation: no limitations . Information obtained by: patient . History of Present Illness 85 year old F presents to the emergency department with the chief complaint of dizzy, described as moderate, Patient reports no radiation. Patient started experiencing this unknown and it has been intermittent. No relieving factors improve symptom(s), No exacerbating factors reported . Patient notes no other symptoms.. Patient did receive the following treatments prior to arrival, none Related Data Home Medications Medication Instructions Recorded Confirmed multivitamin with minerals 1 ea PO DAILY 12/02/12 01/18/21 aspirin [Aspir-81] 81 mg PO DAILY 10/27/14 01/18/21 clobetasol 60 gm TOPICAL BID PRN #2 tube 01/13/15 01/18/21 Forward Goal 03/08/15 08/22/20 polyethylene glycol 3350 17 gm PO DAILY PRN PRN #30 packet 07/25/17 01/18/21 OneTouch Ultra Test #100 strip 08/26/17 09/10/20 lancets [OneTouch UltraSoft #100 ea 08/26/17 09/10/20 Lancets] docusate sodium 100 mg capsule 100 mg PO TID PRN PRN #90 cap 07/16/18 01/18/21 cholecalciferol (vitamin D3) 10 400 unit PO DAILY tab 11/17/18 01/18/21 mcg (400 unit) tablet ketorolac 0.4 % eye drops 1 drp OP QID ml 04/07/19 01/18/21 amlodipine 10 mg tablet 10 mg PO DAILY #90 tab 02/22/20 01/18/21 clopidogrel 75 mg tablet 75 mg PO DAILY #90 tab 02/22/20 01/18/21 hydrochlorothiazide 25 mg tablet 25 mg PO DAILY #90 tab 02/22/20 01/18/21 pravastatin 10 mg tablet 5 mg PO DAILY #45 tab 02/22/20 01/18/21 metoprolol tartrate 100 mg tablet 50 mg PO BID #180 tab 08/22/20 01/18/21 lisinopril 40 mg tablet 40 mg PO DAILY #90 tab 09/12/20 01/18/21 meclizine 12.5 mg PO TID PRN #14 tab 01/18/21 Previous Rx's Medication Instructions Recorded polyethylene glycol 3350 17 gm PO DAILY PRN PRN #30 packet 07/25/17 OneTouch Ultra Test #100 strip 08/26/17 lancets [OneTouch UltraSoft #100 ea 08/26/17 Lancets] docusate sodium 100 mg capsule 100 mg PO TID PRN PRN #90 cap 07/16/18 amlodipine 10 mg tablet 10 mg PO DAILY #90 tab 02/22/20 clopidogrel 75 mg tablet 75 mg PO DAILY #90 tab 02/22/20 hydrochlorothiazide 25 mg tablet 25 mg PO DAILY #90 tab 02/22/20 pravastatin 10 mg tablet 5 mg PO DAILY #45 tab 02/22/20 metoprolol tartrate 100 mg tablet 50 mg PO BID #180 tab 08/22/20 lisinopril 40 mg tablet 40 mg PO DAILY #90 tab 09/12/20 meclizine 12.5 mg PO TID PRN #14 tab 01/18/21 Allergies Allergy/AdvReac Type Severity Reaction Status Date / Time acetaminophen Allergy Unknown Verified 01/18/21 05:53 oxycodone Allergy Unknown SKIN RASH Verified 01/18/21 05:53 atorvastatin calcium Allergy Verified 01/18/21 05:53 [From Lipitor] amlodipine AdvReac Intermediate LEG EDEMA Verified 01/18/21 05:53 diltiazem AdvReac Intermediate DIZZINESS Verified 01/18/21 05:53 AND LE EDEMA simvastatin AdvReac Unknown MYALGIA Verified 01/18/21 05:53 chlorthalidone AdvReac LEGS Verified 01/18/21 05:53 SWELLING metformin AdvReac THINKS Verified 01/18/21 05:53 GAVE HER A STROKE General Stated Complaint: Dizzy/Sync CINDY: 3 Review of Systems <Anibal Wray MD - Last Filed: 01/18/21 06:53> All systems reviewed & are unremarkable except as noted in HPI and below Constitutional Constitutional: Denies chills, Denies fever(s) and Denies weakness Cardiovascular Cardiovascular: Denies chest pain and Denies dyspnea Respiratory Respiratory: Denies cough and Denies dyspnea Gastrointestinal Gastrointestinal: Denies abdominal pain, Denies nausea and Denies vomiting Musculoskeletal Musculoskeletal: Denies joint swelling Neurologic Neurologic: Denies weakness Psychiatric Psychiatric: Denies depression PFS <Anibal Wray MD - Last Filed: 01/18/21 06:53> Medical History Angina pectoris, unspecified Cataract CVD (cardiovascular disease) Diabetes type 2 with atherosclerosis of arteries of extremities GERD (gastroesophageal reflux disease) History of nose injury surgical repair Hypercholesterolemia Hypertension Nuclear sclerotic cataract of left eye Osteoarthritis Osteoporosis Peripheral vascular disease Pressure ulcer of left heel, stage 2 Surgical History Carotid endarterectomy (10/19/14) right Coronary Artery Bypass Gaft (CABG) (10/19/14) femoral tibial bypass H/O thumb surgery rt thumb H/O wrist surgery rt wrist History of shoulder surgery lt shoulder History of total knee replacement right knee Hx of neck surgery Status post cataract extraction and insertion of intraocular lens of left eye (12/01/18) Total replacement of hip left Social History Smoking/Tobacco Use Status: Never Smoking risk assessment performed?: Yes Alcohol Intake: never Drug use: Never Substance use type: does not use Communication Needs: Corrective Lenses What type of physical activity do you participate in: none Seatbelt use: always 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 Working smoke detector in home: Yes Do you feel safe at home: Yes Do you feel safe in your relationship?: Yes Exam <Anibal Wray MD - Last Filed: 01/18/21 06:53> Const General: no acute distress Orientation: alert HENMT Head: normal to inspection Ears: external ears normal General nose exam: external nose normal Mouth: moist mucous membranes Eyes General: appearance normal, both eyes and all related structures Neck Neck: normal visual inspection Resp Effort & Inspection: normal respiratory effort and able to speak in complete sentences Cardio Rate: regular rate Skin General skin exam: no rashes or lesions noted Neuro General: patient alert and patient oriented x3 Extrem General: normal to inspection Psych Mental Status: mental status grossly normal Course <Anibal Wray MD - Last Filed: 01/18/21 06:53> Vital Signs Vital signs: Vital Signs Temperature 36.9 C 01/18/21 05:51 Pulse 67 01/18/21 05:51 Respiratory Rate 17 01/18/21 05:51 Blood Pressure 197/57 H 01/18/21 05:51 Pulse Oximetry 98 01/18/21 05:51 Temperature 36.9 C 01/18/21 05:51 Temperature Source Temporal Artery Scan 01/18/21 05:51 Pulse 67 01/18/21 05:51 Respiratory Rate 17 01/18/21 05:51 Respiratory Effort 01/18/21 05:56 Respiratory Pattern Normal 01/18/21 05:56 Blood Pressure 197/57 H 01/18/21 05:51 Blood Pressure Position Supine 01/18/21 05:51 Pulse Oximetry 98 01/18/21 05:51 Oxygen Delivery Method Room Air 01/18/21 05:51 Oxygen Flow Rate 0 01/18/21 05:51 Pain Level 0 01/18/21 05:51 Sign Out <Anibal Wray MD - Last Filed: 01/18/21 06:53> Sign Out Data: Sign Out Comment: follow up delta troponin and ecg and reevaluation after meclizine Last updated by Anibal Wray MD at 01/18/21 06:51
[2021-01-18] MEDS: Meclizine 25 MG TAB PO ×2 (06:17→12:34)
[2021-01-18 06:33] LABS: ALT 34 U/L (14-59); AST 21 U/L (15-37); Alkaline Phosphatase 84 U/L (46-116); Anion Gap 12.5 mmol/L (3-11); BUN 13 mg/dL (7-18); Bilirubin, Total 0.5 mg/dL (0.2-1.0); CO2 26.5 mmol/L (21.0-32.0); CREATININE 0.9 mg/dL (0.55-1.02); Calcium 9.2 mg/dL (8.5-10.1); Chloride 104 mmol/L (98-107); Glucose 205 mg/dL (74-106); Potassium 3.7 mmol/L (3.5-5.1); Sodium 143 mmol/L (136-145); TSH (W/Ref FT4) 4.43 uIU/mL (0.36-3.74); Total Protein 7.9 g/dL (6.4-8.2); Troponin I < 0.05 ng/mL (<0.06)
[2021-01-18 06:49] LABS: FREE T4 1.23 ng/dL (0.76-1.46)
[2021-01-18] MEDS: Omnipaque 350 MG/ML 100 ML BTL IJ (07:01)
[2021-01-18] MEDS: Normal Saline Flush 10 ML SYR IVP ×3 (07:02→10:15)
[2021-01-18] MEDS: Normal Saline - Diluent 50 ML VIAL IV (07:02)
--- NOTE | 2021-01-18 07:30 | DI.MRI_ITS ---
Exam(s) MR ANGIO BRAIN WO EXAM: MR ANGIO BRAIN WO CLINICAL HISTORY: High grade P1 stenosis, poss P3 ischemia on cta TECHNIQUE: MRA PERFORMED WITH [id number] SEQUENCE (NO IV CONTRAST) . COMPARISON: CT CT BRAIN NECK CTA from 01/18/[address] BRAIN NECK CTA from 01/18/2021 FINDINGS: Anterior circulation: Both internal carotid arteries are patent in the skull base-carotid canals as well as within the cave rnous sinuses and the supraclinoid aspects are patent with no aneurysms. Both middle cerebral arteri es are patent out to the sylvian fissure branches. Also no aneurysms in these vessels. Both A1 seg ments are patent as are the anterior cerebral arteries and there is no evidence of aneurysm at the le khadra of the anterior communicating artery. Posterior circulation: Basilar artery is formed at the skull base by the dominant right vertebral artery and thin left verte bral artery. Lumen of the distal most cm of the left vertebral artery is quite narrow. The basilar artery ascends in the midline with normal luminal diameter and no evidence of intraluminal thrombus. Distally it gives off patent bilateral superior cerebellar arteries. Above this level it terminates as the posterior cerebral arteries. The right posterior cerebral artery appears patent. There is a significant focal narrowing in the left posterior cerebral artery located 8 millimeters distal to it s origin. Also atherosclerotic disease more distally in this vessel at P3 segment and IMPRESSION: 1. There is critical focal narrowing in the left posterior cerebral artery approximately 8 millimeter s distal to its origin. Also some disease more distally in this vessel at the P3 segment 2. Relatively unremarkable anterior intracranial circulation. See separate brain MRI report. Findings discussed with ER physician following completion of the study 01/18/2021 DATA REPOSITORY:
--- NOTE | 2021-01-18 07:30 | DI.MRI_ITS ---
Exam(s) MR BRAIN WO EXAM: MR BRAIN WO CLINICAL HISTORY: High-grade L P1 stenosis, poss P3 ischemia on cta TECHNIQUE: Multiplanar multisequence MRI of the brain was performed. COMPARISON: CT CT BRAIN NECK CTA from 01/18/[address] BRAIN NECK CTA from 01/18/2021 FINDINGS: CEREBRAL PARENCHYMA: There is no evidence of intracranial hemorrhage, mass effect, or shift of midline structures. There are no extra-axial fluid collections. Ventricles are not enlarged or shifted. Amount of involutiona l changes consistent with this patient's advanced age. There is no significant focal signal abnormality in the cerebellar hemispheres nor within the stephan, m idbrain, and thalami. Multiple small foci of periventricular and subcortical white matter signal abnormality consistent wit h chronic small vessel ischemic changes. These are nonhemorrhagic and are not associated with surrou nding edema nor abnormal signal on diffusion imaging to suggest acute ischemic event. PITUITARY GLAND: No mass nor parasellar abnormality. No obvious abnormality in the cavernous sinuses. FLOW VOIDS: The expected flow void are noted. No evidence of obvious aneurysm nor obvious vascular ma lformation. PARANASAL SINUSES: Left maxillary sinus appears diminutive and with medial wall defect from probable prior surgery. Mild mucosal thickening. ORBITS: No obvious findings. IMPRESSION: No evidence of acute infarct nor hemorrhage. There are multiple foci of white matter signal abnormal ity consistent with chronic small vessel disease changes. See separate MRA and CTA dictations. DATA REPOSITORY:
--- NOTE | 2021-01-18 07:31 | DI.VRAD_ITS ---
Addendum created by Ru Frausto MD on 01/18/2021 7:57:32 AM EDT: THIS REPORT CONTAINS FINDINGS THAT MAY BE CRITICAL TO PATIENT CARE. The findings were verbally communicated via telephone conference with Anibal Wray at 7:56 AM EDT on 01/18/2021. The findings were acknowledged and understood. Initial report created on 01/18/2021 7:30:50 AM EDT: PROCEDURE INFORMATION: Exam: CT Angiography Head With Contrast, Arteriography Exam date and time: 01/18/2021 6:12 AM Age: 85 years old Clinical indication: Other: Vertigo, ? dissection TECHNIQUE: Imaging protocol: Computed tomography angiography of the head with contrast. Exam focused on the arteries. 3D rendering (Not supervised by radiologist): MIP and/or 3D reconstructed images were created by the technologist. Radiation optimization: All CT scans at this facility use at least one of these dose optimization techniques: automated exposure control; mA and/or kV adjustment per patient size (includes targeted exams where dose is matched to clinical indication); or iterative reconstruction. Contrast material: OMNIPAQUE 350; Contrast volume: 85 ml; Contrast route: INTRAVENOUS (IV); COMPARISON: CT HEAD WITHOUT CONTRAST 06/28/2017 7:18 PM FINDINGS: ANTERIOR CIRCULATION: Right internal carotid artery: Unremarkable. Intracranial segment is patent with no significant stenosis. No aneurysm. Right middle cerebral artery: Unremarkable. No occlusion or significant stenosis. No aneurysm. Right anterior cerebral artery: Unremarkable. No occlusion or significant stenosis. No aneurysm. Left internal carotid artery: Unremarkable. Intracranial segment is patent with no significant stenosis. No aneurysm. Left middle cerebral artery: Unremarkable. No occlusion or significant stenosis. No aneurysm. Left anterior cerebral artery: Unremarkable. No occlusion or significant stenosis. No aneurysm. POSTERIOR CIRCULATION: Right vertebral artery: Unremarkable. No occlusion or significant stenosis. No aneurysm. Left vertebral artery: Unremarkable. No occlusion or significant stenosis. No aneurysm. Basilar artery: Unremarkable. No occlusion or significant stenosis. No aneurysm. Right posterior cerebral artery: Unremarkable. No occlusion or significant stenosis. No aneurysm. Left posterior cerebral artery: High-grade left P1 [employer] stenosis potentially related to in situ plaque versus nonocclusive thromboembolism. The distal branches of the left [employer], the P3 branches in the perimesencephalic region are poorly visualized. This may reflect anatomic variation. Clinical correlation however recommended to assess for left-sided peripheral P3 ischemia and an MRI could be performed as needed for further evaluation. Brain: See Left posterior cerebral artery finding. Cerebral ventricles: No ventriculomegaly. Bones/joints: Unremarkable. No acute fracture. Soft tissues: Unremarkable. IMPRESSION: 1. High-grade left P1 [employer] stenosis potentially related to in situ plaque versus nonocclusive thromboembolism. 2. The distal branches of the left [employer], the P3 branches in the perimesencephalic region are poorly visualized. This may reflect anatomic variation. Clinical correlation however recommended to assess for left-sided peripheral P3 ischemia and an MRI could be performed as needed for further evaluation. PROCEDURE INFORMATION: Exam: CT Angiography Neck With Contrast Exam date and time: 01/18/2021 6:12 AM Age: 85 years old Clinical indication: Other: Vertigo, ? dissection TECHNIQUE: Imaging protocol: Computed tomography angiography of the neck with contrast. 3D rendering (Not supervised by radiologist): MIP and/or 3D reconstructed images were created by the technologist. Radiation optimization: All CT scans at this facility use at least one of these dose optimization techniques: automated exposure control; mA and/or kV adjustment per patient size (includes targeted exams where dose is matched to clinical indication); or iterative reconstruction. Contrast material: OMNIPAQUE 350; Contrast route: INTRAVENOUS (IV); COMPARISON: CT HEAD WITHOUT CONTRAST 06/28/2017 7:18 PM FINDINGS: Right common carotid artery: No stenosis. No dissection or occlusion. Right internal carotid artery: No stenosis of the extracranial segment. No dissection or occlusion. Right external carotid artery: No occlusion or stenosis of the origin. Left common carotid artery: No stenosis. No dissection or occlusion. Left internal carotid artery: Critical left proximal ICA stenosis secondary to predominantly calcified plaque. Left external carotid artery: No occlusion or stenosis of the origin. Right vertebral artery: No stenosis. No dissection or occlusion. Left vertebral artery: No stenosis. No dissection or occlusion. Soft tissues: Normal. No significant soft tissue swelling. Bones/joints: No acute fracture. IMPRESSION: Critical left proximal ICA stenosis secondary to predominantly calcified plaque. REFERENCES: NASCET CRITERIA. The degree of internal carotid artery stenosis is based on NASCET criteria. Normal is no stenosis. Mild is less than 50% stenosis. Moderate is 50-69% stenosis. Severe is 70% to 99% stenosis. Total occlusion is no detectable patent lumen. Dictated and Authenticated by: Ru Frausto MD. Ordering:CHARLENE Barnett MD
--- NOTE | 2021-01-18 07:45 | DI.MRI_ITS ---
Exam(s) MR ANGIO NECK WO CLINICAL HISTORY: Critical P1 proximal ICA stenosis. TECHNIQUE: MRA PERFORMED WITHOUT IV CONTRAST USING [id number] SEQUENCE CONTRAST MATERIAL: IV Contrast: NONE . COMPARISON: RECENT CTA STUDY FINDINGS: ANTERIOR CIRCULATION: This noninfused study is suboptimal for evaluating the origin the great vessels off of the aortic arch. However recent CT a did not reveal significant stenosis at the origin these vessels. Both common carotid arteries exhibit normal luminal diameters their mid levels. At the Level of the carotid bifurcations there is significant narrowing of the luminal diameter in the proxi mal left internal carotid artery, approximately 80 percent stenosis. At the right carotid bifurcation there is no significant stenosis but there is significant stenosis i n the proximal right internal carotid artery also evident which appears approximately 80 percent. Th is is in the 1st cm of this vessel. Normal luminal diameter in the neck above this level. POSTERIOR CIRCULATION: Both vertebral arteries originated conventional fashion off of the subclavian arteries. Right vertebral artery is dominant. Both vertebral arteries contribute to the formation o f the basilar artery at the skull base. IMPRESSION: Abnormal study. There is critical stenosis at the origin of the left internal carotid artery. There also appears to be significant stenosis in the proximal aspect of the right internal carotid artery although this does not correspond to the finding on the CT angio (which does not reveal critical sten osis at proximal right ICA. Please note that this study is a noninfused MRI of the neck. Both vertebral arteries are patent. No dissection. No intraluminal thrombus. Both contribute to th e formation of the basilar artery. The right vertebral artery is dominant. DATA REPOSITORY:
--- NOTE | 2021-01-18 09:15 | RT.EKG_ITS ---
APPROVED REPORT Exam: Resting ECG Reason for Exam: dizzy Patient Location: E HR:63 bpm ECG Measurements Heart Rate 63 AXIS HI 180 P 48 QRSd 107 QRS -13 QT 459 T 111 QTc 469 Conclusion Sinus rhythm...normal P axis, V-rate 60- 99 Atrial premature complex...SV complex w/ short R-R interval Probable left atrial enlargement...P >50mS, <-0.10mV V1. No STEMI. No acute change from previous. I have reviewed and interpreted ECG and agree with software generated interpretation. Incomplete left bundle branch block...QRSd>110mS, terminal axis(-90,-1) LVH with secondary repolarization abnormality...multi-LVH criteria, abnrm ST-T
[2021-01-18 09:19] LABS: Bilirubin Negative (Negative); Blood Trace-lysed (Negative); Clarity Clear (Clear); Glucose 100 mg/dL (Negative); Ketones Trace mg/dL (Negative); Leukocyte Esterase Negative (Negative); Nitrite Negative (Negative); Specific Gravity 1.015 (1.005-1.025); Urobilinogen 0.2 EU/dL (Up TO 0.2); pH 8.5 (5-8)
[2021-01-18 09:41] LABS: Epithelial Cells Rare HPF (Negative); WBC 0-2 HPF (0-5)
[2021-01-18 09:42] LABS: Bacteria Rare HPF (Negative); C & S Indicated? No; Casts Negative LPF (Negative); Crystals Negative HPF (Negative); Mucus Negative (Negative); Other Cells Negative (Negative)
[2021-01-18 09:57] LABS: Troponin I < 0.05 ng/mL (<0.06)
[2021-01-18] MEDS: Normal Saline 500 ML IV ×2 (10:14→12:35)
--- NOTE | 2021-01-19 08:55 | NUR.NOTE ---
Nursing Note: referral to the [facility] neuro per dr villanueva
== END 2021-01-18 15:11 | disposition home or self-care (01) ==
PROVIDERS: Emergency Medicine; Emergency Provider Physician Assistant; PCP Nurse Practitioner
DX: R42 Dizziness and giddiness (principal); I65.22 Occlusion and stenosis of left carotid artery; I66.22 Occlusion and stenosis of left posterior cerebral artery
CPT/HCPCS: 36415; 70496; 70498; 70544; 70547; 80053; 93005; 96360; 96361; 99285; 70551; 81003; 81015; 83735; 84439; 84443; 84484; 85025; 93010; J3490

== ENCOUNTER 2021-10-28 05:59 | Emergency (ER) | payer MEDICARE, OTHER, MEDICAID, SELFPAY ==
[2021-10-28] VITALS (53 sets, daily range): BP systolic 131–201; BP diastolic 44–64; PULSE 58–89; RESP 8–23; TEMP 36.2–37; O2SAT 95–100
--- NOTE | 2021-10-28 06:00 | RT.EKG_ITS ---
APPROVED REPORT Exam: Resting ECG Reason for Exam: dizzy Patient Location: E HR:76 bpm ECG Measurements Heart Rate 76 AXIS WA 156 P -8 QRSd 109 QRS -22 QT 408 T 134 QTc 456 Conclusion Sinus rhythm...normal P axis, V-rate 60- 99 Atrial premature complex...SV complex w/ short R-R interval LVH with secondary repolarization abnormality...multi-LVH criteria, abnrm ST-T
--- NOTE | 2021-10-28 06:15 | DI.CT_ITS ---
Exam(s) CT HEAD WO EXAM: CT HEAD WO CLINICAL HISTORY: dizzienss. TECHNIQUE: Imaging Protocol: Axial computed tomography images with coronal and sagittal reformatted images were created and reviewed COMPARISON: CT CT BRAIN NECK CTA from 01/18/2021 FINDINGS: There are no skull fractures nor fluid in the visualized paranasal sinuses. There is a surgical def ect in the medial wall of the left maxillary sinus is and postsurgical changes in this sinus. The op posite-right maxillary sinus appears unremarkable and there are no significant findings in the spheno id and frontal sinuses. Postoperative changes in right-sided ethmoidal air cells noted. Mastoid air cells are clear. There is no evidence of intracranial hemorrhage, mass effect, or shift of midline structures. There are no extra-axial fluid collections. Ventricular size is slightly prominent but appears to be comme nsurate with the size of the overlying cortical sulci. Ventricular size is also unchanged from December 2020. There is some mild bilateral periventricular hypodensity consistent with chronic small vessel disease. Heavy calcification is noted within the internal carotid arteries within the cavernous sinuses. IMPRESSION: No acute intracranial findings on this noninfused CT scan of the brain. I note this patient has had prior CT angio study in December 2020 which revealed severe stenosis in the p roximal left ICA in the neck as well as tight focal stenosis in the left posterior cerebral artery 8 millimeters distal to its origin. RADIATION DOSE DELIVERED: 626.97mGy.cm Total DLP DATA REPOSITORY: All CT scans at this facility are submitted to the National Radiology Data Registry (NRDR) Dose Index Registry (DIR) with the [employer] ([employer]). RADIATION OPTIMIZATION: All CT scans at this facility use at least one of these dose optimization te chniques: automated exposure control; mA and/or kV adjustment per patient size (includes targeted exa ms where dose is matched to clinical indication); or iterative reconstruction.
--- NOTE | 2021-10-28 06:15 | ED.GENADUL_ITS ---
Discharge Plan Disposition Patient Disposition: HOME Condition: Improving Discharge Details Clinical Impression: Dizziness Primary Care Provider: Kenna Vargas ED Provider: Raudel Jefferson Home Meds and New Rx's Prescriptions: Continued metoprolol tartrate 100 mg tablet 50 mg PO BID Qty: 180 3RF cholecalciferol (vitamin D3) [Vitamin D3] 400 unit tablet 400 unit PO DAILY 0RF multivitamin with minerals 1 EACH tablet 1 ea PO DAILY 0RF clobetasol 60 GM ointment 60 gm Topical BID PRNQty: 2 2RF Forward Goal 0RF Rx Instructions: Supplement is called Forward Goal Daily Regiment 65+; pt states it is a specialized daily supplement for those with joint replacements. [facility] 03/08/15 (DME) OneTouch Ultra Test 1 EACH strip 1 ea Miscellaneous DAILY Qty: 100 3RF Rx Instructions: to monitor blood glucose 250.00 to maintain HGB A1C less than 7.5 (DME) lancets [OneTouch UltraSoft Lancets] 1 EACH misc 1 ea Miscellaneous DAILY Qty: 100 3RF Rx Instructions: to monitor blood glucose 250.00 to maintain HGB A1C less than 7.5 Diabetic Shoes Qty: 2 0RF Rx Instructions: Please provide custom diabetic shoes for bilateral diabetic feet. She requires a lift in the left shoe. docusate sodium [Colace] 100 mg capsule 100 mg PO TID PRN PRN (Reason: constipation) Qty: 90 12RF ketorolac 0.4 % drops 1 drp OP QID 0RF Rx Instructions: Prescribed by Dr Ban Gonzalez for Macular Edema both eyes both eyes amlodipine 10 mg tablet 10 mg PO DAILY Qty: 90 3RF clopidogrel [Plavix] 75 mg tablet 75 mg PO DAILY Qty: 90 3RF hydrochlorothiazide 25 mg tablet 25 mg PO DAILY Qty: 90 3RF pravastatin 10 mg tablet 5 mg PO DAILY Qty: 45 3RF Rx Instructions: one half tablet daily to be [address] Moore. lisinopril 40 mg tablet 40 mg PO DAILY Qty: 90 3RF aspirin [Aspir-81] 81 MG tablet,delayed release (DR/EC) 81 mg PO DAILY 0RF meclizine 12.5 mg tablet 12.5 mg PO TID PRN (Reason: dizziness) Qty: 14 0RF polyethylene glycol 3350 17 GM powder in packet 17 gm PO DAILY PRN PRN (Reason: Constipation) Qty: 30 0RF Discharge Instructions Instructions: Dizziness (ED) Additional Instructions: Please take your medication as prescribed. Please return to the emergency department for any worsening symptomatology specifically worsening dizziness change in speech weakness or numbness. Medical Decision Making 85 year old female with a history of DM, diabetic retinopathy, elevated cholesterol, CAD, mild aortic stenosis, PVD, critical left posterior cerebral artery stenosis, and critical left internal carotic stenosis for which she has declined intervention on and declined seeing vascular surgery at [facility] [place], and has intermittent peripheral vertigo, comes in with dizziness upon waking up [id number]. This happened yesterday as well and she took her meclizine and felt better. She again took her meclizine this morning and currently denies feeling dizzy. She describes a sensation of the room spinning. She denies chest pain, headache, dyspnea, fevers, chill. She arrives stable, has no focal deficits and reassuring HINTS exam. Suspect peripheral vertigo and less likely central vertigo based on exam and response to meclizine. Will evaluate for electrolyte abnormalities and given her age ct of her head. DiSabatino 10: 32 patient rest comfortably no acute distress feeling much better no current symptomatology. Labs and imaging unremarkable. Likely peripheral vertigo given symptomatology worse with changing position. Patient has normal speech moving all extremities ambulates with the assistance of a cane and walker. Family member here to accompany patient home. Medical Records Medical records reviewed: Yes I reviewed the patient's medical records. Imaging Data Radiologic Study: Attestation: I personally reviewed and interpreted this imaging study as follows: Imaging: CT Scan Radiologist's impression: IMPRESSION: 1. No acute intracranial abnormality. No intracranial hemorrhage, mass effect, or acute territorial infarct. 2. Age-related involutional and chronic small vessel ischemic changes. 3. Paranasal sinus mucosal disease Lab Data Lab results reviewed: Yes I reviewed the patient's lab results. ECG Data Attestation: I personally reviewed and interpreted this ECG (s) as follows: Prior ECG tracings: available for review Interpretation: sinus rhythm, rate of 76, no acute st t wave ischemic findings, LVH HPI General Mode of arrival: wheelchair . Date/Time Provider Initiated Documentation: 10/28/21 06:02 . Limitations to Documentation: no limitations . Information obtained by: patient . History of Present Illness 85 year old F presents to the emergency department with the chief complaint of dizziness, described as moderate, Patient started experiencing this hour(s) (2) and it has been now resolved. improves with No relieving factors improve symptom(s), No exacerbating factors reported . Related Data Home Medications Medication Instructions Recorded Confirmed multivitamin with minerals 1 ea PO DAILY 12/02/12 10/28/21 aspirin 81 mg tablet,delayed 81 mg PO DAILY 10/27/14 10/28/21 release (Aspir-) clobetasol 0.05 % topical ointment 60 gm TOPICAL BID PRN #2 tube 01/13/15 01/18/21 Forward Goal 03/08/15 08/22/20 polyethylene glycol 3350 17 gram 17 gm PO DAILY PRN PRN #30 packet 07/25/17 10/28/21 oral powder packet blood sugar diagnostic (OneTouch #100 strip 08/26/17 09/10/20 Ultra Test) lancets (OneTouch UltraSoft #100 ea 08/26/17 09/10/20 Lancets) docusate sodium 100 mg capsule 100 mg PO TID PRN PRN #90 cap 07/16/18 10/28/21 (Colace) cholecalciferol (vitamin D3) 10 400 unit PO DAILY tab 11/17/18 10/28/21 mcg (400 unit) tablet (Vitamin D3) ketorolac 0.4 % eye drops 1 drp OP QID ml 04/07/19 01/18/21 metoprolol tartrate 100 mg tablet 50 mg PO BID #180 tab 08/22/20 10/28/21 meclizine 12.5 mg tablet 12.5 mg PO TID PRN #14 tab 01/18/21 10/28/21 amlodipine 10 mg tablet 10 mg PO DAILY #90 tab 01/24/21 10/28/21 clopidogrel 75 mg tablet (Plavix) 75 mg PO DAILY #90 tab 01/24/21 10/28/21 hydrochlorothiazide 25 mg tablet 25 mg PO DAILY #90 tab 01/24/21 10/28/21 pravastatin 10 mg tablet 5 mg PO DAILY #45 tab 01/24/21 10/28/21 lisinopril 40 mg tablet 40 mg PO DAILY #90 tab 07/19/21 10/28/21 Previous Rx's Medication Instructions Recorded polyethylene glycol 3350 17 gram 17 gm PO DAILY PRN PRN #30 packet 07/25/17 oral powder packet blood sugar diagnostic ([place] [employer] #100 strip 08/26/17 Ultra Test) lancets ([place] [employer]Touch UltraSoft #100 ea 08/26/17 Lancets) docusate sodium 100 mg capsule 100 mg PO TID PRN PRN #90 cap 07/16/18 (Colace) metoprolol tartrate 100 mg tablet 50 mg PO BID #180 tab 08/22/20 meclizine 12.5 mg tablet 12.5 mg PO TID PRN #14 tab 01/18/21 amlodipine 10 mg tablet 10 mg PO DAILY #90 tab 01/24/21 clopidogrel 75 mg tablet (Plavix) 75 mg PO DAILY #90 tab 01/24/21 hydrochlorothiazide 25 mg tablet 25 mg PO DAILY #90 tab 01/24/21 pravastatin 10 mg tablet 5 mg PO DAILY #45 tab 01/24/21 lisinopril 40 mg tablet 40 mg PO DAILY #90 tab 07/19/21 Allergies Allergy/AdvReac Type Severity Reaction Status Date / Time acetaminophen Allergy Unknown Verified 10/28/21 06:23 oxycodone Allergy Unknown SKIN RASH Verified 10/28/21 06:23 atorvastatin calcium Allergy Verified 10/28/21 06:23 [From Lipitor] amlodipine AdvReac Intermediate LEG EDEMA Verified 10/28/21 06:23 diltiazem AdvReac Intermediate DIZZINESS Verified 10/28/21 06:23 AND LE EDEMA simvastatin AdvReac Unknown MYALGIA Verified 10/28/21 06:23 chlorthalidone AdvReac LEGS Verified 10/28/21 06:23 SWELLING metformin AdvReac THINKS Verified 10/28/21 06:23 GAVE HER A STROKE General Stated Complaint: Dizzy/Sync CINDY: 3 Review of Systems All systems reviewed & are unremarkable except as noted in HPI and below Constitutional Constitutional: Denies chills, Denies fever(s) and Denies weakness Eyes Eyes: Denies loss of vision Cardiovascular Cardiovascular: Denies chest pain and Denies dyspnea Respiratory Respiratory: Denies cough and Denies dyspnea Gastrointestinal Gastrointestinal: Denies abdominal pain, Denies nausea and Denies vomiting Genitourinary Genitourinary: Denies dysuria Musculoskeletal Musculoskeletal: Denies joint swelling Integumentary/Breasts Skin/Breast: Denies rash Neurologic Neurologic: Denies loss of vision and Denies weakness PFSH All Active Problems Dizziness (Acute) Cerebral artery disease (Acute) Carotid stenosis, left (Acute) Vertigo (Acute) Hand paresthesia (Acute) Status post cataract extraction and insertion of intraocular lens of right eye (Chronic 12/15/18) ASHD (arteriosclerotic heart disease) (Acute) Carotid artery disease without cerebral infarction (Acute) Physical deconditioning (Acute) Iron deficiency anemia (Acute) Diabetes mellitus type 2, uncontrolled, without complications (Acute) Angina at rest (Acute 03/13/13) Medically managed; Dr. 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 Cevallos, mild stable, 11/05/2013 Essential hypertension (Acute 03/17/13) Goal BP 150/85 Dr. 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) right knee Status post cataract extraction and insertion of intraocular lens of left eye (Chronic 12/01/18) Medical History Angina pectoris, unspecified Cataract CVD (cardiovascular disease) Diabetes type 2 with atherosclerosis of arteries of extremities GERD (gastroesophageal reflux disease) History of nose injury surgical repair Hypercholesterolemia Hypertension Nuclear sclerotic cataract of left eye Osteoarthritis Osteoporosis Peripheral vascular disease Pressure ulcer of left heel, stage 2 Surgical History Carotid endarterectomy (10/19/14) right Coronary Artery Bypass Gaft (CABG) (10/19/14) femoral tibial bypass H/O thumb surgery rt thumb H/O wrist surgery rt wrist History of shoulder surgery lt shoulder History of total knee replacement right knee Hx of neck surgery Status post cataract extraction and insertion of intraocular lens of left eye (12/01/18) Total replacement of hip left Social History Smoking/Tobacco Use Status: Never Smoking risk assessment performed?: Yes Alcohol Intake: never Drug use: Never Substance use type: does not use Communication Needs: Corrective Lenses What type of physical activity do you participate in: none Seatbelt use: always Drive intox or ride w/intox deliver driver: No Working smoke detector in home: Yes Do you feel safe at home: Yes Do you feel safe in your relationship?: Yes Exam Const General: no acute distress Orientation: alert HENMT Head: normal to inspection Ears: external ears normal General nose exam: external nose normal Mouth: moist mucous membranes Eyes General: appearance normal, both eyes and all related structures Neck Neck: normal visual inspection Resp Effort & Inspection: normal respiratory effort and able to speak in complete sentences Cardio Rate: regular rate Skin General skin exam: no rashes or lesions noted Neuro General: patient alert and patient oriented x3 Extrem General: normal to inspection Psych Mental Status: mental status grossly normal Course Vital Signs Vital signs: Vital Signs Temperature 37.0 C 10/28/21 06:11 Pulse 89 10/28/21 06:11 Respiratory Rate 17 10/28/21 06:11 Blood Pressure 199/64 H 10/28/21 06:11 Pulse Oximetry 97 10/28/21 06:11 Temperature 37.0 C 10/28/21 06:11 Temperature Source Skin 10/28/21 06:11 Pulse 89 10/28/21 06:11 Respiratory Rate 17 10/28/21 06:11 Blood Pressure 199/64 H 10/28/21 06:11 Blood Pressure Position Sitting 10/28/21 06:11 Pulse Oximetry 97 10/28/21 06:11 Oxygen Delivery Method Room Air 10/28/21 06:11 Oxygen Flow Rate 0 10/28/21 06:11 Pain Level 0 10/28/21 06:11 Sign Out Sign Out Data: Sign Out Comment: history of vertigo, took meclizine this morning after waking up with dizziness sensation and felt better. Does have history of vertebral and carotid artery disease but has declined to see vascular surgery for any type of intervention. Pending CT and labs, if unremarkable and if she is able to ambulate after workup can likely be discharged with pcp follow up. Last updated by Anibal Wray MD at 10/28/21 08:25
[2021-10-28 06:40] LABS: Abs Immature Grans 0.02 10^3/uL (0.0-0.06); Absolute Basophil Count 0.03 10^3/uL (0.0-0.2); Absolute Eosinophil Count 0.17 10^3/uL (0.0-0.7); Absolute Lymphocyte Count 1.97 10^3/uL (1.2-3.4); Absolute Monocyte Count 0.56 10^3/uL (0.1-0.8); Absolute Neutrophil Count 4.61 10^3/uL (1.2-6.7); Basophils % 0.4; Eosinophils % 2.3; HCT 43.6 % (36.0-46.0); HGB 13.8 g/dL (11.2-15.7); Immature Grans % 0.3; Lymphocytes % 26.8; MCH 28.8 pg (27.0-33.0); MCHC 31.7 % (32.0-36.0); MPV 11.1 fL (8.0-11.0); Monocytes % 7.6; Neutrophils % 62.6; Nucleated RBC 0 %; Platelet Count 222 10^3/uL (130-400); RBC 4.79 10^6/uL (3.93-5.22); RDW 13.2 % (11.7-14.6); RDW-SD 43.8 fL; WBC 7.36 10^3/uL (4.4-10.8)
[2021-10-28 06:52] LABS: Prothrombin Time 10.5 sec (9.3-11.0)
[2021-10-28 07:00] LABS: Bilirubin Negative (Negative); Blood Trace-intact (Negative); Clarity Clear (Clear); Glucose Negative (Negative); Ketones Negative (Negative); Leukocyte Esterase Negative (Negative); Nitrite Negative (Negative); Urobilinogen 0.2 EU/dL (Up TO 0.2); pH 7.5 (5-8)
[2021-10-28 07:02] LABS: ALT 42 U/L (14-59); AST 20 U/L (15-37); Albumin 4.1 g/dL (3.4-5.0); Alkaline Phosphatase 86 U/L (46-116); Anion Gap 10.9 mmol/L (3-11); BUN 16 mg/dL (7-18); Bilirubin, Total 0.5 mg/dL (0.2-1.0); CO2 27.1 mmol/L (21.0-32.0); CREATININE 0.9 mg/dL (0.55-1.02); Calcium 9.2 mg/dL (8.5-10.1); Chloride 104 mmol/L (98-107); Glucose 211 mg/dL (74-106); Potassium 3.8 mmol/L (3.5-5.1); Sodium 142 mmol/L (136-145); TSH (W/Ref FT4) 4.86 uIU/mL (0.36-3.74); Troponin I < 50 ng/L (<or=60)
[2021-10-28 07:06] LABS: PTT Activated 23.6 sec (21.0-27.5)
[2021-10-28 07:08] LABS: Bacteria Negative HPF (Negative); C & S Indicated? No; Casts 0-2 Hyaline LPF (Negative); Crystals Negative HPF (Negative); Epithelial Cells Rare HPF (Negative); Mucus Negative (Negative); RBC 0-2 HPF (0-2); WBC Negative HPF (0-5)
[2021-10-28 07:26] LABS: FREE T4 1.22 ng/dL (0.76-1.46)
--- NOTE | 2021-10-28 07:50 | DI.VRAD_ITS ---
Addendum created by Angie Healy MD on 10/28/2021 7:51:59 AM EDT: The statement under the subheading Cerebral ventricles should read: Diffuse prominence of the ventricular system consistent with age-related involutional changes. The size and configuration of the ventricular system is stable. Initial report created on 10/28/2021 7:50:17 AM EDT: PROCEDURE INFORMATION: Exam: CT Head Without Contrast Exam date and time: 10/28/2021 7:28 AM Age: 85 years old Clinical indication: Dizziness TECHNIQUE: Imaging protocol: Computed tomography of the head without contrast. COMPARISON: MR BRAIN WO 01/18/2021 8:27 AM FINDINGS: Brain: Diffuse sulcal prominence is in keeping with age-related involutional changes. There is no intracranial hemorrhage, mass effect, midline shift, or extra-axial collection. You-white matter differentiation is preserved. There is no evidence of acute territorial infarct. There is mild patchy periventricular and subcortical white matter hypoattenuation, most compatible with underlying chronic microangiopathy. Cerebral ventricles: Click old events the size and configuration of the ventricular system is stable. Paranasal sinuses: Postsurgical changes are again noted in the paranasal sinuses. There is mild mucosal thickening in the bilateral ethmoid and right sphenoid sinuses and bilateral maxillary sinus mucosal thickening, trace on the right and moderate on the left. No air-fluid levels. Mastoid air cells: The mastoid air cells are clear bilaterally. Vasculature: Heavy atherosclerotic calcifications in the intracranial internal carotid arteries. Bones/joints: Hyperostosis frontalis interna. No acute osseous abnormality. Soft tissues: Extracranial soft tissues are unremarkable. IMPRESSION: 1. No acute intracranial abnormality. No intracranial hemorrhage, mass effect, or acute territorial infarct. 2. Age-related involutional and chronic small vessel ischemic changes. 3. Paranasal sinus mucosal disease. Dictated and Authenticated by: Angie Healy MD. Ordering:CHARLENE Barnett MD
[2021-10-28 09:44] LABS: Troponin I < 50 ng/L (<or=60)
== END 2021-10-28 10:48 | disposition home or self-care (01) ==
PROVIDERS: Emergency Medicine; Emergency Provider Emergency Medicine; PCP Nurse Practitioner
DX: R42 Dizziness and giddiness (principal); I65.22 Occlusion and stenosis of left carotid artery; E11.319 Type 2 diabetes mellitus with unspecified diabetic retinopathy without macular edema; I10 Essential (primary) hypertension
CPT/HCPCS: 36415; 80053; 93005; 99284; 70450; 81003; 81015; 83735; 84439; 84443; 84484; 85025; 85610; 85730; 93010

== ENCOUNTER 2022-04-09 07:44 | Emergency (ER) | payer MEDICARE, OTHER, MEDICAID, SELFPAY ==
[2022-04-09] VITALS (45 sets, daily range): BP systolic 166–254; BP diastolic 43–87; PULSE 46–78; RESP 13–30; TEMP 36.9; O2SAT 91–98
--- NOTE | 2022-04-09 07:45 | RT.EKG_ITS ---
APPROVED REPORT Exam: Resting ECG Reason for Exam: LEFT SIDED WEAKNESS Patient Location: E HR:66 bpm ECG Measurements Heart Rate 66 AXIS GA 159 P -8 QRSd 110 QRS -16 QT 428 T 158 QTc 448 Conclusion Sinus rhythm...normal P axis, V-rate 60- 99 LVH with secondary repolarization abnormality...multi-LVH criteria, abnrm ST-T no STEMI, non-diagnostic EKG I have reviewed and interpreted ECG and agree with software generated interpretation.
--- NOTE | 2022-04-09 08:00 | DI.RAD_ITS ---
Exam(s) XR CHEST 2V PA LATERAL EXAM: XR CHEST 2V PA LATERAL CLINICAL HISTORY: HTN, palpitations. TECHNIQUE: 2D digital imaging was performed. COMPARISON: CR,XR XR CHEST 2V PA LATERAL from 05/01/2020 FINDINGS: 2 views: Again noted are sternotomy wires and plates. Heart size is normal. The mediastinum is not widened. Right lung is clear. There is persistent atelectasis-infiltrate in the left lower lobe, slightly inc reased from 05/01/2020 which is most recent chest study. Calcified serpiginous splenic artery again noted in the left upper quadrant of the abdomen. IMPRESSION: Increasing increased markings in left lower lobe retrocardiac region. Chronic infiltrate but has inc reased from 2020. Recommend follow-up CT scan. DATA REPOSITORY: RADIATION DOSE DELIVERED:
--- NOTE | 2022-04-09 08:12 | ED.GENADUL_ITS ---
Discharge Plan Disposition Patient Disposition: HOME Condition: Stable Discharge Details Clinical Impression: Hypertension Primary Care Provider: Kenna Vargas ED Provider: Nia Clark Home Meds and New Rx's Prescriptions: New valsartan-hydrochlorothiazide 320-25 mg tablet 1 tab PO DAILY Qty: 14 0RF Continued metoprolol tartrate 100 mg tablet 50 mg PO BID Qty: 180 3RF meclizine 12.5 mg tablet 12.5 mg PO TID PRN (Reason: dizziness) Qty: 90 3RF clopidogrel [Plavix] 75 mg tablet 75 mg PO DAILY Qty: 90 3RF cholecalciferol (vitamin D3) [Vitamin D3] 400 unit tablet 400 unit PO DAILY multivitamin with minerals 1 EACH tablet 1 ea PO DAILY clobetasol 60 GM ointment 60 gm Topical BID PRNQty: 2 Forward Goal Rx Instructions: Supplement is called Forward Goal Daily Regiment 65+; pt states it is a specialized daily supplement for those with joint replacements. [facility] [place]/08[place] (DME) OneTouch Ultra Test 1 EACH strip 1 ea Miscellaneous DAILY Qty: 100 3RF Rx Instructions: to monitor blood glucose 250.00 to maintain HGB A1C less than 7.5 (DME) lancets [OneTouch UltraSoft Lancets] 1 EACH misc 1 ea Miscellaneous DAILY Qty: 100 3RF Rx Instructions: to monitor blood glucose 250.00 to maintain HGB A1C less than 7.5 Diabetic Shoes Qty: 2 0RF Rx Instructions: Please provide custom diabetic shoes for bilateral diabetic feet. She requires a lift in the left shoe. docusate sodium [Colace] 100 mg capsule 100 mg PO TID PRN PRN (Reason: constipation) Qty: 90 12RF ketorolac 0.4 % drops 1 drp OP QID Rx Instructions: Prescribed by Dr Ban Gonzalez for Macular Edema both eyes both eyes pravastatin 10 mg tablet 5 mg PO DAILY Qty: 45 3RF aspirin [Aspir-81] 81 MG tablet,delayed release (DR/EC) 81 mg PO DAILY polyethylene glycol 3350 17 GM powder in packet 17 gm PO DAILY PRN PRN (Reason: Constipation) Qty: 30 0RF Discontinued valsartan 160 mg tablet 160 mg PO DAILY Qty: 90 3RF hydrochlorothiazide 25 mg tablet 25 mg PO DAILY Qty: 90 3RF Discharge Instructions Instructions: Hypertension (ED) Additional Instructions: Your labs are reassuring here today. However, I am quite concerned about there blood pressure. Please stop your valsartan and hydrochlorothiazide and begin a combo medication has been sent to your preferred pharmacy. You have an appoi ntment next Saturday at 2 PM with your primary care provider. Please follow the recommendations from respiratory therapy regarding care of your Holter monitor. If you develop fever/chills, cough, shortness of breath, chest pain or other new/worsening symptom please seek care urgently once again. You will also need outpatient CT scan of your chest regarding the infiltrate that was noted on your x-ray has been present in 2020. Please discuss outpatient order with your primary care provider. Referrals: Kenna Vargas NP [Primary Care Provider] - 04/16/22 2:00 pm Discharge Data Discharge Date/Time-TO BE ENTERED AT DEPARTURE: 04/09/22 14:16 Medical Decision Making Patient is a pleasant 86-year-old female, brought in by her daughter, with chief complaint of elevated blood pressure. Past medical history is pertinent for cerebral artery disease, left carotid stenosis, hand paresthesia, arteriosclerotic heart disease, iron deficiency anemia, type 2 diabetes uncontrolled, CAD, CVA, hypertension, GERD, hypercholesterolemia, PVD, status post carotid endarterectomy, CABG, Femoral-tibial bypass. Patient reports that her blood pressure is chronically elevated, states that she had medication changes by her primary care provider for her hypertension in January and since then her systolic has been over 200. She has not followed up as of yet with her primary care provider. She has not taken her morning medications as of yet today and blood pressure is 254/87. She denies any chest pain, shortness of b reath, difficulty breathing, headache, visual changes. She is endorsing some left hand paresthesias and the 3 radial fingers which she reports is chronic and associated with long-term trauma. This is intermittent and unchanged today. She denies any new sensory changes, weakness. Has no headache or visual changes. States that this morning she had a sensation of her heart first going quickly and then slowing down and reports that she been having the symptoms on and off since her UT in 2014. States that this symptom is typcially present every morning but then will spontaneously resolve. On exam, patient appears nontoxic. She is resting comfortably. Lungs are clear. She has a systolic murmur noted which patient reports chronic, worse on the right side of the sternum. She has edema in her right lower extremity which patient reports is chronic. States that this has been ongoing since her fem-tib bypass. Intact capillary refill. No calf pain. Exam of the LUE concerning for carpal tunnel with positive Durkan and Tinel. No other neurologic deficit noted. Normal FAST exam for CVA As the patient has not had her morning medications, will give her these. I did review the patient's chart including her recent note from his primary care. Patient does have a several allergies or adverse reactions to antihypertensive and has been hesitant to try new medications in the past. While discussing with the patient, her blood pressure has notably decreased with a systolic now in the 180s. Her heart rate is in the 50s, likely associated with the beta-william. At this time to add a new agent would prefer to give her a.m. medications first and then continue to monitor. Her symptoms do not sound acute at this time, aside from the elevation in the blood pressure since her change in blood pressure medication in January. As the patient did have some cardiac symptomatology this morning, plan to work-up for ACS although I find the unlikely and her to be asymptomatic. I not see any indication at this time for aortic dissection, pneumothorax, pulmonary embolism. Patient is not endorsing any new symptomatology associated with CVA noted her exam suggest this. Will obtain baseline labs, EKG. EKG was obtained and reviewed by Dr. Rodriguez. Patient is in sinus rhythm. She does have some T wave depressions but these appear to be unchanged from previous EKGs. Patient remains asymptomatics. Her BP oscillates greatly, especially systolic, from 170s-220s. Her DBP is low currently in the 40s. She has had several adverse reactions to antihypertensives. Will touch base with the PCP. FINDINGS: 2 views: Again noted are sternotomy wires and plates. Heart size is normal.? The mediastinum is not widened Right lung is clear.? There is persistent atelectasis-infiltrate in the left lower lobe, slightly increased from 05/01/2020 which is most recent chest study. Calcified serpiginous splenic artery again noted in the left upper quadrant of the abdomen. IMPRESSION: Increasing increased markings in left lower lobe retrocardiac region.? Chronic infiltrate but has increased from 2020.? Recommend follow-up CT scan. I discussed these findings with the patient and her daughter. As this is chronic in nature, and patient has no respiratory symptoms currently, will hold off on CT and have this f/u by PCP. Labs reviewed and discussed with patient and family. No sigfnicant abnormality. Her BNP is slightly elevated at 500 but this is near her baseline. Troponin is negative x 2. Spoke with patients PCP. I am concerned for her elevated BP but it does have large range. She has come down into the 160s at times. Also, her DBP is often low. She has had a signfianctly elevated BP for some time and has no evidence of end organ damage with this today. Bradycardic. With her adverse reactions and these other confounders, will discuss with PCP for further guidance. Spoke with PCP, we decided to increase the Valsartan and transition her to a valsartan/HCTZ combo which did please the patient as she does not wish to take more pills. Arranged for f/u in one week. Discussed with patient and daughter. She will stop her current HCTZ and valsartan, begin the new combo medication which has been sent to her pharmacy. Encouraged that she f/u regarding the CT. If she wishes, can have carpal tunnel further evaluated. Have also ordered Holter in attempt to catch her HR fluc tuations which she reports as symptomatic in the morning. As these symptomat have all been going on for months/years, I feel that she is safe for d/c to home. ehas a very supportive family who will be able to assist if needed. She and I did discuss if she feels safe and ready for d/c, she does. She was given strict return precautions. All of her quesitons and concerns were addressed, she is in agreement with this plan. HPI General Date/Time Provider Initiated Documentation: 04/09/22 08:12 . Limitations to Documentation: no limitations . Information obtained by: patient, family and RN notes reviewed . History of Present Illness 86 year old F presents to the emergency department with the chief complaint of heart rate going up and down, hypertension, altered sensation left hand, described as moderate and similar to prior episodes, Quality is described as other (numbness in left hand), and is localized to the chest, left and upper extremity. Patient reports no radiation. Patient started experiencing this unknown (different start dates, all have been ongoing for years) No relieving factors improve symptom(s), Other factors that worsen symptoms (reports that the fast/slow HR occurs every morning) . Patient notes denies chest pain, cough, diaphoresis, fever/chills, headaches, loss of appeti te, nausea/vomiting, rash, shortness of breath and weakness. Patient did receive the following treatments prior to arrival, none Related Data Home Medications Medication Instructions Recorded Confirmed multivitamin with minerals 1 ea PO DAILY 12/02/12 04/09/22 aspirin 81 mg tablet,delayed 81 mg PO DAILY 10/27/14 04/09/22 release (Aspir-) clobetasol 0.05 % topical ointment 60 gm topical BID PRN #2 tubes 01/13/15 04/09/22 Forward Goal 03/08/15 02/22/22 polyethylene glycol 3350 17 gram 17 gm PO DAILY PRN PRN 07/25/17 04/09/22 oral powder packet Constipation #30 packets blood sugar diagnostic (OneTouch #100 strips 08/26/17 02/22/22 Ultra Test strips) lancets (OneTouch UltraSoft #100 ea 08/26/17 02/22/22 Lancets) docusate sodium 100 mg capsule 100 mg PO TID PRN PRN constipation 07/16/18 04/09/22 (Colace) #90 caps cholecalciferol (vitamin D3) 10 400 unit PO DAILY 11/17/18 04/09/22 mcg (400 unit) tablet (Vitamin D3) ketorolac 0.4 % eye drops 1 drp ophthalmic (eye) QID 04/07/19 04/09/22 metoprolol tartrate 100 mg tablet 50 mg PO BID #180 tabs 08/22/20 04/09/22 meclizine 12.5 mg tablet 12.5 mg PO TID PRN dizziness #90 11/09/21 04/09/22 tabs pravastatin 10 mg tablet 5 mg PO DAILY #45 tabs 01/30/22 04/09/22 clopidogrel 75 mg tablet (Plavix) 75 mg PO DAILY #90 tabs 02/22/22 04/09/22 valsartan 320 1 tab PO DAILY #14 tabs 04/09/22 mg-hydrochlorothiazide 25 mg tablet Previous Rx's Medication Instructions Recorded polyethylene glycol 3350 17 gram 17 gm PO DAILY PRN PRN 07/25/17 oral powder packet Constipation #30 packets blood sugar diagnostic ([employer] AnalyticsTouch #100 strips 08/26/17 Ultra Test strips) lancets ([employer] UltraSoft #100 ea 08/26/17 Lancets) docusate sodium 100 mg capsule 100 mg PO TID PRN PRN constipation 07/16/18 (Colace) #90 caps metoprolol tartrate 100 mg tablet 50 mg PO BID #180 tabs 08/22/20 meclizine 12.5 mg tablet 12.5 mg PO TID PRN dizziness #90 11/09/21 tabs pravastatin 10 mg tablet 5 mg PO DAILY #45 tabs 01/30/22 clopidogrel 75 mg tablet (Plavix) 75 mg PO DAILY #90 tabs 02/22/22 valsartan 320 1 tab PO DAILY #14 tabs 04/09/22 mg-hydrochlorothiazide 25 mg tablet Allergies Allergy/AdvReac Type Severity Reaction Status Date / Time acetaminophen Allergy Unknown Verified 04/09/22 07:53 oxycodone Allergy Unknown SKIN RASH Verified 04/09/22 07:53 atorvastatin calcium Allergy Verified 04/09/22 07:53 [From Lipitor] amlodipine AdvReac Intermediate LEG EDEMA Verified 04/09/22 07:53 diltiazem AdvReac Intermediate DIZZINESS Verified 04/09/22 07:53 AND LE EDEMA simvastatin AdvReac Unknown MYALGIA Verified 04/09/22 07:53 chlorthalidone AdvReac LEGS Verified 04/09/22 07:53 SWELLING metformin AdvReac THINKS Verified 04/09/22 07:53 GAVE HER A STROKE General Stated Complaint: Chest Pain CINDY: 2 Review of Systems Constitutional Constitutional: Reports as per HPI, Denies chills, Denies fever(s), Denies headache(s) and Denies poor appetite Eyes Eyes: Denies change in vision ENT Ears, Nose, Mouth, and Throat: Denies dizziness and Denies headache(s) Cardiovascular Cardiovascular: Reports as per HPI, Denies dyspnea and Denies dyspnea on exertion Respiratory Respiratory: Reports as per HPI, Denies chest congestion, Denies cough, Denies dyspnea and Denies dyspnea on exertion Gastrointestinal Gastrointestinal: Reports as per HPI, Denies abdominal pain, Denies diarrhea, Denies nausea and Denies vomiting Musculoskeletal Musculoskeletal: Reports as per HPI and Denies back pain Integumentary/Breasts Skin/Breast: Reports as per HPI and Denies rash Neurologic Neurologic: Reports as per HPI, Denies dizziness and Denies headache(s) PFSH All Active Problems Hypertension (Chronic) Cerebral artery disease (Acute) Carotid stenosis, left (Acute) Vertigo (Acute) Hand paresthesia (Acute) Status post cataract extraction and insertion of intraocular lens of right eye (Chronic 12/15/18) ASHD (arteriosclerotic heart disease) (Acute) Carotid artery disease without cerebral infarction (Acute) Physical deconditioning (Acute) Iron deficiency anemia (Acute) Diabetes mellitus type 2, uncontrolled, without complications (Acute) Angina at rest (Acute 03/13/13) Medically managed; Dr. 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 Cevallos, mild stable, 11/05/2013 Essential hypertension (Acute 03/17/13) Goal BP 150/85 Dr. 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) right knee Status post cataract extraction and insertion of intraocular lens of left eye (Chronic 12/01/18) Medical History Angina pectoris, unspecified Cataract CVD (cardiovascular disease) Diabetes type 2 with atherosclerosis of arteries of extremities GERD (gastroesophageal reflux disease) History of nose injury surgical repair Hypercholesterolemia Hypertension Nuclear sclerotic cataract of left eye Osteoarthritis Osteoporosis Peripheral vascular disease Pressure ulcer of left heel, stage 2 Surgical History Carotid endarterectomy (10/19/14) right Coronary Artery Bypass Gaft (CABG) (10/19/14) femoral tibial bypass H/O thumb surgery rt thumb H/O wrist surgery rt wrist History of shoulder surgery lt shoulder History of total knee replacement right knee Hx of neck surgery Status post cataract extraction and insertion of intraocular lens of left eye (12/01/18) Total replacement of hip left Social History Smoking/Tobacco Use Status: Never Smoking risk assessment performed?: Yes Alcohol Intake: never Drug use: Never Substance use type: does not use Communication Needs: Corrective Lenses What type of physical activity do you participate in: none Seatbelt use: always Drive intox or ride w/intox 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 Working smoke detector in home: Yes Do you feel safe at home: Yes Do you feel safe in your relationship?: Yes Exam Const General: cooperative, healthy appearing, comfortable, no acute distress and well developed Nutritional Appearance: average body habitus and well nourished Orientation: alert, awake and oriented x3 HENMT Head: normal to inspection Ears: hearing grossly normal bilaterally Mouth: moist mucous membranes Chest Chest: normal inspection of the chest, normal palpation of entire chest wall and no crepitus Resp Effort & Inspection: normal respiratory effort, able to speak in complete sentences and no respiratory distress Auscultation: clear to auscultation bilaterally, no rales, no rhonchi and no wheezes Cardio Rate: regular rate Rhythm: regular rhythm Heart Sounds: murmur systolic GI Inspection: normal to inspection, no edema and non-distended Palpation: soft, no hepatosplenomegaly, not firm, no guarding, not rigid and nontender Auscultation: normal bowel sounds Back/Spine/Pelvis Back: no CVA tenderness Thoracic/Lumbar Spine: thoracic and lumbar spine normal to inspection Skin General skin exam: no rashes or lesions noted Trauma: no lacerations or abrasions Neuro General: patient alert, patient awake and patient oriented x3 Cognition: normal cognition Speech: speech normal Gait: normal gait Extrem General: normal to inspection, capillary refill normal, no calf tenderness, normal gait and edema Laterality: right Hand/finger images: 1. area of intermittent numbness. Sensation intact currently. Intact distal pulses. 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 Some thenar atrophy but equal to that of the contralateral side. She has positive Tinel's sign, positive Durkan. No sensory deficits elsewhere, no proximal deficits. Psych Appearance: grossly normal and well kempt Mental Status: mental status grossly normal Speech and Movement: speech and movement normal Course Vital Signs Vital signs: Vital Signs Temperature 36.9 C 04/09/22 07:48 Pulse 74 04/09/22 07:48 Respiratory Rate 18 04/09/22 07:48 Blood Pressure 254/87 H 04/09/22 07:48 Pulse Oximetry 98 04/09/22 07:48 Temperature 36.9 C 04/09/22 07:48 Temperature Source Temporal Artery Scan 04/09/22 07:48 Pulse 74 04/09/22 07:48 Respiratory Rate 18 04/09/22 07:48 Blood Pressure 254/87 H 04/09/22 07:48 Blood Pressure Position Sitting 04/09/22 07:48 Pulse Oximetry 98 04/09/22 07:48 Oxygen Delivery Method Room Air 04/09/22 07:48 Oxygen Flow Rate 0 04/09/22 07:48
[2022-04-09] MEDS: Metoprolol 50 MG TAB PO (08:44)
[2022-04-09] MEDS: Valsartan 80 MG TAB 160 MG PO (08:44)
[2022-04-09] MEDS: hydroCHLOROthiazide 25 MG TAB PO (08:44)
[2022-04-09 08:56] LABS: Abs Immature Grans 0.02 10^3/uL (0.0-0.06); Absolute Basophil Count 0.04 10^3/uL (0.0-0.2); Absolute Eosinophil Count 0.15 10^3/uL (0.0-0.7); Absolute Monocyte Count 0.49 10^3/uL (0.1-0.8); Basophils % 0.6; Eosinophils % 2.1; HCT 44.6 % (36.0-46.0); HGB 14.6 g/dL (11.2-15.7); Immature Grans % 0.3; MCH 28.7 pg (27.0-33.0); MCHC 32.7 % (32.0-36.0); MCV 88 fL (80-95); MPV 11.6 fL (8.0-11.0); Platelet Count 208 10^3/uL (130-400); RBC 5.08 10^6/uL (3.93-5.22); RDW 12.6 % (11.7-14.6); RDW-SD 40.5 fL
[2022-04-09 09:00] LABS: Bilirubin Negative (Negative); Blood Trace-lysed (Negative); Clarity Clear (Clear); Glucose Negative (Negative); Ketones Negative (Negative); Leukocyte Esterase Trace (Negative); Nitrite Negative (Negative); Urobilinogen 0.2 EU/dL (Up TO 0.2); pH 7.5 (5-8)
[2022-04-09 09:08] LABS: Bacteria Rare HPF (Negative); C & S Indicated? No; Casts Negative LPF (Negative); Crystals Negative HPF (Negative); Epithelial Cells Negative HPF (Negative); Mucus Negative (Negative); Other Cells Negative (Negative); RBC 0-2 HPF (0-2); WBC 0-2 HPF (0-5)
[2022-04-09 09:19] LABS: ALT 40 U/L (14-59); AST 21 U/L (15-37); Albumin 4.3 g/dL (3.4-5.0); Alkaline Phosphatase 86 U/L (46-116); Anion Gap 10.2 mmol/L (3-11); BUN 12 mg/dL (7-18); Bilirubin, Total 0.8 mg/dL (0.2-1.0); CO2 29.8 mmol/L (21.0-32.0); CREATININE 0.8 mg/dL (0.55-1.02); Calcium 9.8 mg/dL (8.5-10.1); Chloride 96 mmol/L (98-107); Estimated GFR 72.61 (mL/min/1.73m2); Glucose 162 mg/dL (74-106); Magnesium 1.9 mg/dL (1.8-2.4); NT-proBNP 567 pg/mL (<300); Potassium 3.6 mmol/L (3.5-5.1); Sodium 136 mmol/L (136-145); TSH (W/Ref FT4) 7.47 uIU/mL (0.36-3.74); Total Protein 8.5 g/dL (6.4-8.2); Troponin I < 50 ng/L (<or=60)
[2022-04-09 09:44] LABS: FREE T4 1.37 ng/dL (0.76-1.46)
--- NOTE | 2022-04-09 11:00 | RT.EKG_ITS ---
APPROVED REPORT Exam: Resting ECG Reason for Exam: recheck Patient Location: E HR:53 bpm ECG Measurements Heart Rate 53 AXIS MA 170 P 18 QRSd 108 QRS -19 QT 471 T 179 QTc 444 Conclusion Sinus bradycardia...rate< 60 LVH with secondary repolarization abnormality...multi-LVH criteria, abnrm ST-T I have reviewed and interpreted ECG and agree with software generated interpretation.
[2022-04-09 11:59] LABS: Troponin I < 50 ng/L (<or=60)
--- NOTE | 2022-04-09 12:00 | HOLTER_ITS ---
APPROVED REPORT Conclusion This is a 48-hour Holter monitor Predominant rhythm was sinus with an average heart rate of 58. Minimum was 43, maximum 93 There were rare ventricular ectopic beats. There was one 3 beat run of nonsustained ventricular tach ycardia There were rare atrial premature beats. There were several self-limited atrial runs, the longest of these was 10 beats in duration There was no atrial fibrillation, no high-grade AV block, no pauses greater than 3 seconds There were no apparent patient symptoms
== END 2022-04-09 14:16 | disposition home or self-care (01) ==
PROVIDERS: Emergency Provider Physician Assistant; PCP Nurse Practitioner
DX: I10 Essential (primary) hypertension (principal); I25.10 Atherosclerotic heart disease of native coronary artery without angina pectoris; E11.51 Type 2 diabetes mellitus with diabetic peripheral angiopathy without gangrene; R60.0 Localized edema; R01.1 Cardiac murmur, unspecified; Z79.82 Long term (current) use of aspirin; Z86.73 Personal history of transient ischemic attack (TIA), and cerebral infarction without residual deficits; Z95.1 Presence of aortocoronary bypass graft
CPT/HCPCS: 36415; 36416; 80053; 82962; 93005; 99284; 71046; 81003; 81015; 83735; 83880; 84439; 84443; 84484; 85025; 93010; 93225; 99285

== ENCOUNTER 2022-06-07 02:44 | Outpatient (CLI) | payer MEDICARE, OTHER, MEDICAID, SELFPAY ==
--- NOTE | 2022-06-07 08:34 | DI.CT_ITS ---
Exam(s) CT CHEST WO EXAM: CT CHEST WO CLINICAL HISTORY: Persistent LLL infiltrate on CXR,abnl [id number]. TECHNIQUE: Imaging protocol: Axial computed tomography images were obtained and coronal and sagittal reformatted images were created and reviewed. COMPARISON: CR CHEST ONE VIEW IN RAD DEPT from 06/28/2017 CR,XR XR CHEST 2V PA LATERAL from 05/01/2020 CR XR CHEST 2V PA LATERAL from 04/09/2022 FINDINGS: The examination is limited due to patient motion artifact. Tracheobronchial tree: Patent where visualized. Pulmonary parenchyma: No consolidation or dominant measurable mass. There is linear scarring in the l eft lower lobe. Comparison is made with chest x-rays dating back to 2017 which show similar scarring appearance in the left lung base. No focal consolidating infiltrates are seen. Mediastinum and Nelia: No dominant adenopathy or fluid collection. The esophagus is unremarkable. Thyroid gland: Unremarkable. Pleura: No effusion or pneumothorax. There is elevation of the left hemidiaphragm. This is unchanged . Heart: Cardiomegaly is present. Marked coronary artery calcification and/or stents are seen. No per icardial effusion. Aorta: There is ectasia of the ascending thoracic aorta. Atherosclerosis is present. Upper abdomen: There is extensive calcification of the splenic artery. Lymph nodes: Within normal limits. Soft tissues: Unremarkable. Bones:Within normal limits for the patient's age. Sternal wires are in place. There are marked dege nerative changes seen in the shoulders, right greater than left. IMPRESSION: 1. Scarring in the left lower lobe which appears stable compared to chest x-rays dating back to 2017. 2. No acute pulmonary process. RADIATION DOSE DELIVERED: 448.43mGy.cm Total DLP 448.43mGy.cm Total DLP DATA REPOSITORY: All CT scans at this facility are submitted to the National Radiology Data Registry (NRDR) Dose Index Registry (DIR) with the [employer] (ACR). RADIATION OPTIMIZATION: All CT scans at this facility use at least one of these dose optimization te chniques: automated exposure control; mA and/or kV adjustment per patient size (includes targeted exa ms where dose is matched to clinical indication); or iterative reconstruction.
--- NOTE | 2022-06-07 13:50 | DI.US_ITS ---
APPROVED REPORT EXAM: Comprehensive 2D, Doppler, and color-flow Echocardiogram Patient Location: Out-Patient Technical Account Representative: Shayna Pal RDCS (AE) Indications: Aortic valve calcification, ASHD Other Information Study Quality: Adequate. Technically limited study due to body habitus. Conclusion Normal left ventricular wall thickness and chamber size. Estimated ejection fraction is 50 to 55%. There are no segmental wall motion abnormalities The right ventricle appears grossly normal in size and systolic function Both atria are normal in size The aortic valve is heavily calcified. Number of leaflets could not be accurately determined. There is no aortic stenosis. There is mild aortic regurgitation There is severe mitral annular calcification. Mitral leaflets are thickened. Chordae are calcified. There is no mitral stenosis. There is trace mitral regurgitation Normal tricuspid valve with trace regurgitation. Right ventricular systolic pressure could not be es timated. Very mildly dilated ascending aorta measuring 3.34 cm Wall motion Left Ventricle The left ventricle is normal size. Left ventricular systolic function is borderline There is normal l eft ventricular wall thickness. There are no segmental wall motion abnormalities There is no ventricu lar septal defect visualized. LVEF is 50-55%. Right Ventricle Right ventricle is grossly normal in size. Right ventricular systolic function is grossly normal. Atria The left atrium size is normal. The right atrium size is normal. The interatrial septum is intact wit h no evidence for an atrial septal defect. Aortic Valve Aortic valve is heavily calcified. Number of aortic valve leaflets could not be assessed. No hemodyna mically significant valvular aortic stenosis. Mild aortic regurgitation. Mitral Valve Mitral valve leaflets are thickened. Severe mitral annular calcification. Chordae appear calcified No evidence of mitral valve stenosis. Trace mitral regurgitation. Tricuspid Valve The tricuspid valve is normal in structure. There is no tricuspid valve stenosis. Trace tricuspid reg urgitation. Pulmonic Valve Pulmonic valve is not well visualized. There is no pulmonic valvular stenosis. There is no pulmonic v alvular regurgitation. Great Vessels The aortic root is normal in size. The ascending aorta is mildly dilated. Aortic arch is not well vis ualized. IVC is normal in size and collapses >50% with inspiration. Pericardium There is no pericardial effusion. 2D Dimensions IVSD d PLAX 0.86 cm F: 0.6-1.0 LV Vol A2C d MOD 87.0 mL LVPW d PLAX 0.95 cm F: 0.6 - 1.0 LV Vol A4C d MOD 92.9 mL LVID d PLAX 4.25 cm F: 3.8 - 5.2 LA vol/ BSA A2C s A-L 30.7 mL/m2 LVDs 3.20 cm F: 2.2 - 3.5 LA vol/ BSA A4C s A-L 24.9 mL/m2 Ao Root d 3.22 cm F: 2.7 - 3.3 LA Vol/ BSA Biplane s A-L 27.9 mL/m2 Ao Asc Diam d 3.34 cm F: 2.3 - 3.1 LA Area A4C s MOD 15.71 cm2 LV EF Teichholz 48.4 % LA Area A2C s MOD 17.26 cm2 LVEF ([facility]) 48.68 % F: 54 - 74 LV EF A4C MOD 50.7 % LV Volume 74.11 mL F: 46 - 106 LV EF A2C MOD 50.2 % LV Volume Index 47.20 mL/m2 F: 29 - 61 LV EF Biplane MOD 48.7 % LV Vol Biplane MOD 90.7 mL SV 44.13 mL FS 24.15 % SV Index 28.03 mL/m2 M-Mode TAPSE 1.72 cm (M/F) >1.7 LV Diastology MV E' medial 0.042 (>0.07 m/s) E/A Ratio 0.6 LV E/e MED 16.60 (<14) MV E Vmax 0.69 (0.4-1.3 m/s) MV E' lateral 0.052 (>0.1 m/s) MV A Vmax 1.20 (0.4-1.3 m/s) LV E/e LAT 13.20 (<14) MV E/A Ratio 0.55 MV E/E' medial 16.62 MV E/E' lateral 13.24 Aortic Valve LVOT Area 2.94 cm2 AoV Area Vmax 1.49 cm2 LVOT Vmax 1.07 m/s AoV Area/ BSA (Vmax) 0.94 cm2/m2 LVOT Mean Triston. 0.68 m/s LARRY Mean Triston. 1.35 cm2 LVOT Peak Grad 4.6 mmHg LARRY Mean Triston. Index 0.86 cm2/m2 LVOT Mean Grad 2.2 mmHg AR DT 2624 msec LVOT VTI 0.266 m AR PHT 761 msec LVOT Diam s 1.90 cm AoV Vmax 2.12 m/s Velocity Ratio 0.50 AoV Mean Triston. 1.49 m/s AoV Peak Grad 17.9 mmHg LVOT SV 78.18 mL AoV Mean Grad 10.0 mmHg AoV VTI 0.488 m AoV Area VTI 1.60 cm2 AoV Area/ BSA (VTI) 1.02 cm/m2 Mitral Valve MV DT 417 (160-240 msec) MV PHT 121 msec MV Area PHT 1.82 cm2 MV VTI 0.497 m MV Area VTI 1.57 (4.0-6.0 cm2) Pulmonary Valve PV Vmax 0.99 (0.5-1.5 m/s) RVOT Peak Gr. 3.20 mmHg PV Peak Grad 4.0 mmHg RVOT Mean Gr. 1.50 mmHg PV Mean Grad 2.0 mmHg RVOT VTI 0.174 m PV VTI 0.211 m RVOT Vmax 0.89 m/s
== END 2022-06-07 03:04 ==
LOC: DI 02:44
PROVIDERS: PCP Nurse Practitioner; Visit Provider Nurse Practitioner
DX: I25.10 Atherosclerotic heart disease of native coronary artery without angina pectoris (principal); R93.89 Abnormal findings on diagnostic imaging of other specified body structures
CPT/HCPCS: 71250; 93306

== ENCOUNTER 2023-01-24 09:02 | Emergency (ER) | payer MEDICARE, MEDICAID, SELFPAY ==
[2023-01-24] VITALS (7 sets, daily range): BP systolic 171–250; BP diastolic 44–62; PULSE 55–73; RESP 11–20; TEMP 36.6–36.9; O2SAT 97–99
--- NOTE | 2023-01-24 09:00 | RT.EKG_ITS ---
APPROVED REPORT Exam: Resting ECG Reason for Exam: weakness Patient Location: E HR:61 bpm ECG Measurements Heart Rate 61 AXIS NE 176 P 36 QRSd 113 QRS -20 QT 443 T 137 QTc 448 Conclusion Sinus rhythm...normal P axis, V-rate 60- 99 Probable left atrial enlargement...P >50mS, <-0.10mV V1 Incomplete left bundle branch block...QRSd>110mS, terminal axis(-90,-1) LVH with secondary repolarization abnormality...multi-LVH criteria, abnrm ST-T sinus rhythm, left axis, partial LBBB
--- NOTE | 2023-01-24 09:35 | W.ED.GENAD ---
Discharge Plan Disposition Patient Disposition: Home Condition: Improving Discharge Details Chief Complaint: GenMedical Clinical Impression: Dehydration Primary Care Provider: Kenna Vargas ED Provider: Raudel Jefferson Home Meds and New Rx's Prescriptions: No Action meclizine 12.5 mg tablet 12.5 mg PO TID PRN (Reason: dizziness) Qty: 90 3RF clopidogrel [Plavix] 75 mg tablet 75 mg PO DAILY Qty: 90 3RF valsartan-hydrochlorothiazide 320-25 mg tablet 1 tab PO DAILY Qty: 90 3RF sulfamethoxazole-trimethoprim [Bactrim DS] 800-160 mg tablet 1 tab PO BID Qty: 28 0RF amoxicillin-pot clavulanate [Augmentin] 500-125 mg tablet 1 tab PO BID Qty: 28 0RF cholecalciferol (vitamin D3) [Vitamin D3] 400 unit tablet 400 unit PO DAILY metoprolol tartrate 100 mg tablet 50 mg PO BID Qty: 180 3RF multivitamin with minerals 1 EACH tablet 1 ea PO DAILY clobetasol 60 GM ointment 60 gm Topical BID PRNQty: 2 Forward Goal Rx Instructions: Supplement is called Forward Goal Daily Regiment 65+; pt states it is a specialized daily supplement for those with joint replacements. [facility] [place] [facility] [place] (DME[place] OneTouch Ultra Test 1 EACH strip 1 ea Miscellaneous DAILY Qty: 100 3RF Rx Instructions: to monitor blood glucose 250.00 to maintain HGB A1C less than 7.5 (DME) lancets [OneTouch UltraSoft Lancets] 1 EACH misc 1 ea Miscellaneous DAILY Qty: 100 3RF Rx Instructions: to monitor blood glucose 250.00 to maintain HGB A1C less than 7.5 Diabetic Shoes Qty: 2 0RF Rx Instructions: Please provide custom diabetic shoes for bilateral diabetic feet. She requires a lift in the left shoe. docusate sodium [Colace] 100 mg capsule 100 mg PO TID PRN PRN (Reason: constipation) Qty: 90 12RF ketorolac 0.4 % drops 1 drp OP QID Rx Instructions: Prescribed by Dr Ban Gonzalez for Macular Edema both eyes both eyes pravastatin 10 mg tablet 5 mg PO DAILY Qty: 45 3RF aspirin [Aspir-81] 81 MG tablet,delayed release (DR/EC) 81 mg PO DAILY polyethylene glycol 3350 17 GM powder in packet 17 gm PO DAILY PRN PRN (Reason: Constipation) Qty: 30 0RF Discharge Instructions Instructions: Dehydration (ED) Additional Instructions: Please follow-up closely with your primary care physician. Please return to the emergency department for any worsening symptoms Medical Decision Making 87-year-old female history of diabetes hypertension currently on second course of oral antibiotics for poorly healing heel ulcer, recent debridement and irrigation, having diarrhea over the past several days after starting new antibiotic, dark brown with multiple liquid stools per day. No chest pain or shortness of breath has had chronic cough since becky COVID within the last year. Abdomen soft nontender nondistended. Marked generalized fatigue, dry oral mucosa and dry skin consistent with likely dehydration consider related to diarrhea. No recent hospitalization or travel. No history of C. difficile. Noted to be hypertense on arrival patient does endorse history of whitecoat syndrome, manual blood pressure taken found to be 190/85. Low suspicion for intracranial hemorrhage or hypertensive emergency as patient presents with symptoms more consistent with hypovolemia. Will allow patient to rest we will retake manual blood pressure. Will provide fluid, will assess electrolytes, will obtain CT head chest x-ray EKG urinalysis. Disposition pending reassessment and results 1300 patient resting comfortably no acute distress. Mild hyponatremia. Clinical picture consistent with dehydration. Patient feeling better after fluids. Home care instructions return precautions HPI General Date/Time Provider Initiated Documentation: 01/24/23 09:03. HPI Narrative: 87-year-old female history of diabetes hypertension presents with generalized weakness over the last day, currently being treated for poorly healing wound to right heel, recent primary, switch from Bactrim to Augmentin, has developed diarrhea since starting antibiotics. Loose dark brown stool multiple times per day. No chest pain or shortness of breath. Has a chronic cough since becky COVID within the last year Related Data Home Medications Medication Instructions Recorded Confirmed multivitamin with minerals 1 ea PO DAILY 12/02/12 01/24/23 aspirin 81 mg tablet,delayed 81 mg PO DAILY 10/27/14 01/24/23 release (Aspir-) clobetasol 0.05 % topical ointment 60 gm topical BID PRN #2 tubes 01/13/15 01/24/23 Forward Goal 03/08/15 01/18/23 polyethylene glycol 3350 17 gram 17 gm PO DAILY PRN PRN 12/28/17 06/29/23 oral powder packet Constipation #30 packets blood sugar diagnostic (OneTouch #100 strips 08/26/17 01/24/23 Ultra Test strips) lancets (OneTouch UltraSoft #100 ea 08/26/17 01/24/23 Lancets) docusate sodium 100 mg capsule 100 mg PO TID PRN PRN constipation 07/16/18 01/24/23 (Colace) #90 caps cholecalciferol (vitamin D3) 10 400 unit PO DAILY 11/17/18 01/24/23 mcg (400 unit) tablet (Vitamin D3) ketorolac 0.4 % eye drops 1 drp ophthalmic (eye) QID 04/07/19 01/24/23 meclizine 12.5 mg tablet 12.5 mg PO TID PRN dizziness #90 11/09/21 01/24/23 tabs clopidogrel 75 mg tablet (Plavix) 75 mg PO DAILY #90 tabs 02/22/22 01/24/23 valsartan 320 1 tab PO DAILY #90 tabs 05/03/22 01/24/23 mg-hydrochlorothiazide 25 mg tablet metoprolol tartrate 100 mg tablet 50 mg PO BID #180 tabs 06/11/22 01/24/23 sulfamethoxazole 800 1 tab PO BID #28 tabs 01/04/23 01/24/23 mg-trimethoprim 160 mg tablet (Bactrim DS) pravastatin 10 mg tablet 5 mg PO DAILY #45 tabs 01/14/23 01/24/23 amoxicillin 500 mg-potassium 1 tab PO BID #28 tabs 01/18/23 01/24/23 clavulanate 125 mg tablet (Augmentin) Previous Rx's Medication Instructions Recorded polyethylene glycol 3350 17 gram 17 gm PO DAILY PRN PRN 07/25/17 oral powder packet Constipation #30 packets blood sugar diagnostic (OneTouch #100 strips 08/26/17 Ultra Test strips) lancets (OneTouch UltraSoft #100 ea 08/26/17 Lancets) docusate sodium 100 mg capsule 100 mg PO TID PRN PRN constipation 07/16/18 (Colace) #90 caps meclizine 12.5 mg tablet 12.5 mg PO TID PRN dizziness #90 11/09/21 tabs clopidogrel 75 mg tablet (Plavix) 75 mg PO DAILY #90 tabs 02/22/22 valsartan 320 1 tab PO DAILY #90 tabs 05/03/22 mg-hydrochlorothiazide 25 mg tablet metoprolol tartrate 100 mg tablet 50 mg PO BID #180 tabs 06/11/22 sulfamethoxazole 800 1 tab PO BID #28 tabs 01/04/23 mg-trimethoprim 160 mg tablet (Bactrim DS) pravastatin 10 mg tablet 5 mg PO DAILY #45 tabs 01/14/23 amoxicillin 500 mg-potassium 1 tab PO BID #28 tabs 01/18/23 clavulanate 125 mg tablet (Augmentin) Allergies Allergy/AdvReac Type Severity Reaction Status Date / Time acetaminophen Allergy Unknown Verified 01/24/23 10:22 oxycodone Allergy Unknown SKIN RASH Verified 01/24/23 10:22 atorvastatin calcium Allergy Verified 01/24/23 10:22 [From Lipitor] amlodipine AdvReac Intermediate LEG EDEMA Verified 01/24/23 10:22 diltiazem AdvReac Intermediate DIZZINESS Verified 01/24/23 10:22 AND LE EDEMA simvastatin AdvReac Unknown MYALGIA Verified 01/24/23 10:22 chlorthalidone AdvReac LEGS Verified 01/24/23 10:22 SWELLING metformin AdvReac THINKS Verified 01/24/23 10:22 GAVE HER A STROKE General Stated Complaint: GenMedical CINDY: 3 Review of Systems Narrative: Review of Systems Constitutional: Fatigue/weakness Eyes: negative ENT: negative Cardiovascular: negative Respiratory: Cough Gastrointestinal: Diarrhea : Negative Musculoskeletal: negative Skin: negative Neurologic: negative Psych: negative PFSH All Active Problems Dehydration (Acute) Diabetes mellitus with foot ulcer due to multiple causes (Acute) Type 2 diabetes mellitus with diabetic peripheral angiopathy without gangrene (Acute) Type 2 diabetes mellitus with diabetic polyneuropathy (Acute) Suspected deep tissue injury of unknown depth (Acute) Cellulitis of foot, right (Acute) Peripheral arterial disease (Acute) Localized edema (Acute) Nail dystrophy (Acute) Cerebral artery disease (Acute) Carotid stenosis, left (Acute) Vertigo (Acute) Hand paresthesia (Acute) Status post cataract extraction and insertion of intraocular lens of right eye (Chronic 12/15/18) ASHD (arteriosclerotic heart disease) (Acute) Carotid artery disease without cerebral infarction (Acute) Physical deconditioning (Acute) Iron deficiency anemia (Acute) Diabetes mellitus type 2, uncontrolled, without complications (Acute) Angina at rest (Acute 03/13/13) Medically managed; Dr. 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 Cevallos, mild stable, 11/05/2013 Essential hypertension (Acute 03/17/13) Goal BP 150/85 Dr. 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) right knee Status post cataract extraction and insertion of intraocular lens of left eye (Chronic 12/01/18) Medical History Angina pectoris, unspecified Cataract CVD (cardiovascular disease) Diabetes type 2 with atherosclerosis of arteries of extremities GERD (gastroesophageal reflux disease) History of nose injury surgical repair Hypercholesterolemia Hypertension Nuclear sclerotic cataract of left eye Osteoarthritis Osteoporosis Peripheral vascular disease Pressure ulcer of left heel, stage 2 Surgical History Carotid endarterectomy (10/19/14) right Coronary Artery Bypass Gaft (CABG) (10/19/14) femoral tibial bypass H/O thumb surgery rt thumb H/O wrist surgery rt wrist History of shoulder surgery lt shoulder Hx of neck surgery Total replacement of hip left Social History Smoking/Tobacco Use Status: Never Smoking risk assessment performed?: Yes Alcohol Intake: never Drug use: Never Substance use type: does not use Communication Needs: Corrective Lenses What type of physical activity do you participate in: none Seatbelt use: always Drive intox or ride w/intox hyster driver: No Working smoke detector in home: Yes Do you feel safe at home: Yes Do you feel safe in your relationship?: Yes Exam Narrative Exam Narrative: Physical Examination General: alert, awake, cooperative, resting comfortably, no acute distress HEENT: normocephalic, atraumatic; PERRL, EOM intact, conjunctiva normal; no nasal discharge; drying of oral mucosa Neck: supple, trachea midline; full ROM Chest: normal to inspection Respiratory: normal respiratory effort, speaking in full sentences, clear to auscultation, no wheezing, rales or rhonchi Cardiac: regular rate, regular rhythm, S1S2 intact, no murmurs rubs or gallops GI: abdomen soft, non-tender, non-distended; no palpable mass or hepatosplenomegaly Skin: Dry Neuro: AAOx3, normal speech, moving all extremities Extremities: Chronic appearing shallow ulceration to right heel with eschar minimal surrounding erythema, no lymphangitic streaking no fluctuance noted Psych: Appropriate mood and affect Course Vital Signs Vital signs: Vital Signs Temperature 36.9 C 01/24/23 09:09 Pulse 73 01/24/23 09:09 Respiratory Rate 18 01/24/23 09:09 Blood Pressure 250/62 H 01/24/23 09:09 Pulse Oximetry 97 01/24/23 09:09 Temperature 36.9 C 01/24/23 09:09 Temperature Source Oral 01/24/23 09:09 Pulse 73 01/24/23 09:09 Respiratory Rate 18 01/24/23 09:09 Blood Pressure 250/62 H 01/24/23 09:09 Blood Pressure Position Supine 01/24/23 09:09 Pulse Oximetry 97 01/24/23 09:09 Oxygen Delivery Method Room Air 01/24/23 09:09 Oxygen Flow Rate 0 01/24/23 09:09 Pain Level 6 01/24/23 09:09
[2023-01-24 10:04] LABS: Abs Immature Grans 0.03 10^3/uL (0.0-0.06); Absolute Basophil Count 0.03 10^3/uL (0.0-0.2); Absolute Lymphocyte Count 1.25 10^3/uL (1.2-3.4); Absolute Monocyte Count 0.51 10^3/uL (0.1-0.8); Absolute Neutrophil Count 4.67 10^3/uL (1.2-6.7); Basophils % 0.5; Eosinophils % 1.5; HCT 38.1 % (36.0-46.0); HGB 13.3 g/dL (11.2-15.7); Immature Grans % 0.5; MCH 29.4 pg (27.0-33.0); MCHC 34.9 % (32.0-36.0); MCV 84 fL (80-95); MPV 9.3 fL (8.0-11.0); Monocytes % 7.7; Neutrophils % 70.8; Platelet Count 191 10^3/uL (130-400); RBC 4.52 10^6/uL (3.93-5.22); RDW 12.4 % (11.7-14.6); RDW-SD 37.9 fL; WBC 6.59 10^3/uL (4.4-10.8)
[2023-01-24 10:18] LABS: ALT 30 U/L (14-59); AST 26 U/L (15-37); Albumin 3.9 g/dL (3.4-5.0); Alkaline Phosphatase 77 U/L (46-116); Anion Gap 10.4 mmol/L (3-11); BUN 15 mg/dL (7-18); Bilirubin, Total 0.5 mg/dL (0.2-1.0); CO2 28.6 mmol/L (21.0-32.0); CREATININE 0.9 mg/dL (0.55-1.02); Calcium 9.2 mg/dL (8.5-10.1); Chloride 90 mmol/L (98-107); Estimated GFR 62.65 (mL/min/1.73m2); Glucose 128 mg/dL (74-106); Potassium 4.4 mmol/L (3.5-5.1); Sodium 129 mmol/L (136-145); Total Protein 7.6 g/dL (6.4-8.2)
--- NOTE | 2023-01-24 10:30 | DI.CT_ITS ---
Exam(s) CT HEAD WO EXAM: CT HEAD WO CLINICAL HISTORY: weakness, htn. TECHNIQUE: Imaging Protocol: Axial computed tomography images with coronal and sagittal reformatted images were created and reviewed COMPARISON: CT CT HEAD WO from 10/28/2021 FINDINGS: Ventricles and Extra axial spaces: Normal in size and morphology for the patient's age. Hemorrhage: None. Cerebral parenchyma: Stable atrophy and white matter changes of microvascular disease. Midline shift: None. Brainstem/Cerebellum: Normal. Calvarium: Normal. Visualized Paranasal sinuses/Mastoids: Clear. Soft Tissues: Unremarkable. IMPRESSION: No acute intracranial process. RADIATION DOSE DELIVERED: 640.62mGy.cm Total DLP DATA REPOSITORY: All CT scans at this facility are submitted to the National Radiology Data Registry (NRDR) Dose Index Registry (DIR) with the [employer] [place] [employer] (A[employer]). RADIATION OPTIMIZATION: All CT scans at this facility use at least one of these dose optimization te chniques: automated exposure control; mA and/or kV adjustment per patient size (includes targeted exa ms where dose is matched to clinical indication); or iterative reconstruction.
--- NOTE | 2023-01-24 10:35 | DI.RAD_ITS ---
Exam(s) XR CHEST 2V PA LATERAL EXAM: XR CHEST 2V PA LATERAL CLINICAL HISTORY: weakness TECHNIQUE: 2D digital imaging was performed. COMPARISON: CR XR CHEST 2V PA LATERAL from 04/09/[address] CHEST WO from 06/07/2022 FINDINGS: HEART: Normal size. Status post CABG Aorta: Not dilated. PULMONARY VASCULATURE: Normal. LUNGS: Scarring above left diaphragm, lungs otherwise clear. PLEURAL SPACE: No pleural effusion or pneumothorax. BONE: Sternal wires. IMPRESSION: No acute abnormality. DATA REPOSITORY: RADIATION DOSE DELIVERED:
[2023-01-24] MEDS: Normal Saline 500 ML 1000 ML IV (10:48)
[2023-01-24 11:49] LABS: Bilirubin Negative (Negative); Blood Trace-intact (Negative); Clarity Clear (Clear); Glucose Negative (Negative); Ketones Negative (Negative); Leukocyte Esterase Negative (Negative); Nitrite Negative (Negative); Specific Gravity 1.015 (1.005-1.025); Urobilinogen 0.2 mg/dL (Up to 0.2)
[2023-01-24 12:03] LABS: WBC 0-2 HPF (0-5)
[2023-01-24 12:04] LABS: Bacteria Negative HPF (Negative); C & S Indicated? No; Crystals Negative HPF (Negative); Epithelial Cells Rare HPF (Negative); Mucus Negative (Negative); Other Cells Rare Renal (Negative)
== END 2023-01-24 13:38 | disposition home or self-care (01) ==
PROVIDERS: Emergency Provider Emergency Medicine; PCP Nurse Practitioner
DX: E86.0 Dehydration (principal)
CPT/HCPCS: 36415; 36416; 80053; 82962; 93005; 99285; 70450; 71046; 81003; 81015; 85025; 93010; 99284

== ENCOUNTER 2023-02-01 15:39 | Outpatient (CLI) | payer MEDICARE, MEDICAID, SELFPAY ==
--- NOTE | 2023-02-01 15:40 | DI.RAD_ITS ---
Exam(s) XR FOOT RT COMPLETE EXAM: XR FOOT RT COMPLETE CLINICAL HISTORY: Rt foot pain, M79.671, rule out osteomyelitis to right calcaneus. TECHNIQUE: 2D digital imaging was performed. Three views. COMPARISON: No exams were available for comparison FINDINGS: BONES: The bones are osteopenic. No acute fracture is present. No bony destructive lesion is seen. Spurring at the Achilles insertion on the calcaneus. JOINTS: No dislocation present. SOFT TISSUE: Diffuse swelling. Vascular calcifications. IMPRESSION: Soft tissue swelling. No plain film evidence of osteomyelitis. DATA REPOSITORY: RADIATION DOSE DELIVERED:
== END 2023-02-01 15:59 ==
LOC: DI 15:40
PROVIDERS: PCP Nurse Practitioner; Visit Provider Podiatrist
DX: M79.671 Pain in right foot (principal); M77.31 Calcaneal spur, right foot
CPT/HCPCS: 73630

== ENCOUNTER 2023-03-18 15:40 | Emergency (ER) | payer MEDICARE, MEDICAID, SELFPAY ==
[2023-03-18 15:58] VITALS: BP 193/44; PULSE 56; RESP 18; TEMP 36.7; O2SAT 98
--- NOTE | 2023-03-18 16:15 | W.ED.GENAD ---
Discharge Plan Disposition Patient Disposition: Home Condition: Stable Discharge Details Clinical Impression: Leg swelling Primary Care Provider: Kenna Vargas ED Provider: Aftab Vazquez Home Meds and New Rx's Prescriptions: Continued meclizine 12.5 mg tablet 12.5 mg PO TID PRN (Reason: dizziness) Qty: 90 3RF Santyl 250 unit/gram ointment 1 applic topical DAILY Qty: 90 0RF gabapentin 300 mg capsule 300 mg PO QHS Qty: 14 0RF doxycycline hyclate 100 mg capsule 100 mg PO BID Qty: 20 0RF cholecalciferol (vitamin D3) [Vitamin D3] 400 unit tablet 400 unit PO DAILY valsartan-hydrochlorothiazide 320-25 mg tablet 1 tab PO DAILY Qty: 90 3RF metoprolol tartrate 100 mg tablet 50 mg PO BID Qty: 180 3RF clopidogrel [Plavix] 75 mg tablet 75 mg PO DAILY Qty: 90 3RF multivitamin with minerals 1 EACH tablet 1 ea PO DAILY clobetasol 60 GM ointment 60 gm Topical BID PRNQty: 2 Forward Goal Rx Instructions: Supplement is called Forward Goal Daily [employer] 65+; pt states it is a specialized daily supplement for those with joint replacements. [facility] [place]ME[place] OneTouch Ultra Test 1 EACH strip 1 ea Miscellaneous DAILY Qty: 100 3RF Rx Instructions: to monitor blood glucose 250.00 to maintain HGB A1C less than 7.5 (DME) lancets [OneTouch UltraSoft Lancets] 1 EACH misc 1 ea Miscellaneous DAILY Qty: 100 3RF Rx Instructions: to monitor blood glucose 250.00 to maintain HGB A1C less than 7.5 Diabetic Shoes Qty: 2 0RF Rx Instructions: Please provide custom diabetic shoes for bilateral diabetic feet. She requires a lift in the left shoe. docusate sodium [Colace] 100 mg capsule 100 mg PO TID PRN PRN (Reason: constipation) Qty: 90 12RF ketorolac 0.4 % drops 1 drp OP QID Rx Instructions: Prescribed by Dr Ban Gonzalez for Macular Edema both eyes both eyes pravastatin 10 mg tablet 5 mg PO DAILY Qty: 45 3RF silver sulfadiazine [Silvadene] 1 % cream 1 applic topical .3x/weekly Qty: 20 1RF Rx Instructions: remove R heel dressing and cleanse with saline. Home Health nurse to apply a 1.5 mm thickness of Silvadene to R heel wound, cover with Mepilex pad. EO aspirin [Aspir-81] 81 MG tablet,delayed release (DR/EC) 81 mg PO DAILY polyethylene glycol 3350 17 GM powder in packet 17 gm PO DAILY PRN PRN (Reason: Constipation) Qty: 30 0RF Discharge Instructions Instructions: Edema (ED) Discharge Data Discharge Date/Time-TO BE ENTERED AT DEPARTURE: 03/18/23 17:01 HPI General Date/Time Provider Initiated Documentation: 03/18/23 15:58. HPI Narrative: 87 year old female presents to the ED with request for R LE US to r/o dvt. She was just seen at podiatry office, has been being seen for a foot ulcer over the past 3 months or so, says she has had swelling for that length of time, but sent today to be sure she has not dvt. She does have notable pitting edema to her RLE. Denies any other c/o. Swelling not new, and unchanged. Pt apparently was sent initially to US from Podiatry office, but turned away because they were gone for the day, came to ED instead. Related Data Home Medications Medication Instructions Recorded Confirmed multivitamin with minerals 1 ea PO DAILY 12/02/12 03/18/23 aspirin 81 mg tablet,delayed 81 mg PO DAILY 10/27/14 03/18/23 release (Aspir-) clobetasol 0.05 % topical ointment 60 gm topical BID PRN #2 tubes 01/13/15 03/18/23 Forward Goal 03/08/15 03/18/23 polyethylene glycol 3350 17 gram 17 gm PO DAILY PRN PRN 07/25/17 03/18/23 oral powder packet Constipation #30 packets blood sugar diagnostic (OneTouch #100 strips 08/26/17 03/18/23 Ultra Test strips) lancets (OneTouch UltraSoft #100 ea 08/26/17 03/18/23 Lancets) docusate sodium 100 mg capsule 100 mg PO TID PRN PRN constipation 07/16/18 03/18/23 (Colace) #90 caps cholecalciferol (vitamin D3) 10 400 unit PO DAILY 11/17/18 03/18/23 mcg (400 unit) tablet (Vitamin D3) ketorolac 0.4 % eye drops 1 drp ophthalmic (eye) QID 04/07/19 03/18/23 meclizine 12.5 mg tablet 12.5 mg PO TID PRN dizziness #90 11/09/21 03/18/23 tabs pravastatin 10 mg tablet 5 mg PO DAILY #45 tabs 01/14/23 03/18/23 silver sulfadiazine 1 % topical 1 applic topical .3x/weekly #20 01/30/23 03/18/23 cream (Silvadene) grams clopidogrel 75 mg tablet (Plavix) 75 mg PO DAILY #90 tabs 03/05/23 03/18/23 metoprolol tartrate 100 mg tablet 50 mg PO BID #180 tabs 03/05/23 03/18/23 valsartan 320 1 tab PO DAILY #90 tabs 03/05/23 03/18/23 mg-hydrochlorothiazide 25 mg tablet collagenase clostridium histo. 250 1 applic topical DAILY #90 grams 03/18/23 03/18/23 unit/gram topical ointment (Santyl) doxycycline hyclate 100 mg capsule 100 mg PO BID #20 caps 03/18/23 03/18/23 gabapentin 300 mg capsule 300 mg PO QHS #14 caps 03/18/23 03/18/23 Previous Rx's Medication Instructions Recorded polyethylene glycol 3350 17 gram 17 gm PO DAILY PRN PRN 07/25/17 oral powder packet Constipation #30 packets blood sugar diagnostic (OneTouch #100 strips 08/26/17 Ultra Test strips) lancets (OneTouch UltraSoft #100 ea 08/26/17 Lancets) docusate sodium 100 mg capsule 100 mg PO TID PRN PRN constipation 07/16/18 (Colace) #90 caps meclizine 12.5 mg tablet 12.5 mg PO TID PRN dizziness #90 11/09/21 tabs pravastatin 10 mg tablet 5 mg PO DAILY #45 tabs 01/14/23 silver sulfadiazine 1 % topical 1 applic topical .3x/weekly #20 01/30/23 cream (Silvadene) grams clopidogrel 75 mg tablet (Plavix) 75 mg PO DAILY #90 tabs 03/05/23 metoprolol tartrate 100 mg tablet 50 mg PO BID #180 tabs 03/05/23 valsartan 320 1 tab PO DAILY #90 tabs 03/05/23 mg-hydrochlorothiazide 25 mg tablet collagenase clostridium histo. 250 1 applic topical DAILY #90 grams 03/18/23 unit/gram topical ointment (Santyl) doxycycline hyclate 100 mg capsule 100 mg PO BID #20 caps 03/18/23 gabapentin 300 mg capsule 300 mg PO QHS #14 caps 03/18/23 Allergies Allergy/AdvReac Type Severity Reaction Status Date / Time acetaminophen Allergy Unknown Verified 03/18/23 14:49 oxycodone Allergy Unknown SKIN RASH Verified 03/18/23 14:49 atorvastatin calcium Allergy Verified 03/18/23 14:49 [From Lipitor] amlodipine AdvReac Intermediate LEG EDEMA Verified 03/18/23 14:49 diltiazem AdvReac Intermediate DIZZINESS Verified 03/18/23 14:49 AND LE EDEMA simvastatin AdvReac Unknown MYALGIA Verified 03/18/23 14:49 chlorthalidone AdvReac LEGS Verified 03/18/23 14:49 SWELLING metformin AdvReac THINKS Verified 03/18/23 14:49 GAVE HER A STROKE General Stated Complaint: Vascular CINDY: 4 PFSH All Active Problems Leg swelling (Acute) DVT (deep venous thrombosis) (Chronic) Right calf pain (Acute) Ulcer of right foot with fat layer exposed (Acute) Ulcer of left foot with fat layer exposed (Acute) Non-pressure chronic ulcer of right heel and midfoot with unspecified severity (Acute) Controlled type 2 diabetes mellitus with ulcer of heel (Acute) Foot pain, right (Acute) Diabetes mellitus with foot ulcer due to multiple causes (Acute) Type 2 diabetes mellitus with diabetic peripheral angiopathy without gangrene (Acute) Type 2 diabetes mellitus with diabetic polyneuropathy (Acute) Suspected deep tissue injury of unknown depth (Acute) Cellulitis of foot, right (Acute) Peripheral arterial disease (Acute) Localized edema (Acute) Nail dystrophy (Acute) Cerebral artery disease (Acute) Carotid stenosis, left (Acute) Vertigo (Acute) Hand paresthesia (Acute) Status post cataract extraction and insertion of intraocular lens of right eye (Chronic 12/15/18) ASHD (arteriosclerotic heart disease) (Acute) Carotid artery disease without cerebral infarction (Acute) Physical deconditioning (Acute) Iron deficiency anemia (Acute) Diabetes mellitus type 2, uncontrolled, without complications (Acute) Angina at rest (Acute 03/13/13) Medically managed; Dr. 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 Cevallos, mild stable, 11/05/2013 Essential hypertension (Acute 03/17/13) Goal BP 150/85 Dr. 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) right knee Status post cataract extraction and insertion of intraocular lens of left eye (Chronic 12/01/18) Medical History Angina pectoris, unspecified Cataract CVD (cardiovascular disease) Diabetes type 2 with atherosclerosis of arteries of extremities GERD (gastroesophageal reflux disease) History of nose injury surgical repair Hypercholesterolemia Hypertension Nuclear sclerotic cataract of left eye Osteoarthritis Osteoporosis Peripheral vascular disease Pressure ulcer of left heel, stage 2 Uterine leiomyoma (03/13/13) Vitamin B6 deficiency (03/13/13) Surgical History Carotid endarterectomy (10/19/14) right Coronary Artery Bypass Gaft (CABG) (10/19/14) femoral tibial bypass H/O thumb surgery rt thumb H/O wrist surgery rt wrist History of shoulder surgery lt shoulder Hx of neck surgery Total replacement of hip left Social History Smoking/Tobacco Use Status: Never Smoking risk assessment performed?: Yes Alcohol Intake: never Drug use: Never Substance use type: does not use Communication Needs: Corrective Lenses What type of physical activity do you participate in: none Seatbelt use: always Drive intox or ride w/intox 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 Reevaluation(s) Initial Evaluation: 1630 - I spoke to the project program manager, who is very concerned for dvt, asking if can call in US, which I explained is not an option. Can give dose of lovenox, ordered US for the morning. Discussed plan for US in am with pt and family. Vital Signs Vital signs: Vital Signs Temperature 36.7 C 03/18/23 15:58 Pulse 56 L 03/18/23 15:58 Respiratory Rate 18 03/18/23 15:58 Blood Pressure 193/44 H 03/18/23 15:58 Pulse Oximetry 98 03/18/23 15:58 Temperature 36.7 C 03/18/23 15:58 Pulse 56 L 03/18/23 15:58 Respiratory Rate 18 03/18/23 15:58 Respiratory Effort Normal, Non-Labored 03/18/23 16:02 Blood Pressure 193/44 H 03/18/23 15:58 Blood Pressure Position Supine 03/18/23 15:58 Pulse Oximetry 98 03/18/23 15:58 Oxygen Delivery Method Room Air 03/18/23 15:58 Oxygen Flow Rate 0 03/18/23 15:58 Pain Level 0 03/18/23 15:58
[2023-03-18] MEDS: Enoxaparin 80 MG/0.8 ML SYR SC (16:53)
[2023-03-18 16:58] VITALS: BP 200/42; PULSE 62; RESP 14; O2SAT 98
== END 2023-03-18 17:01 | disposition home or self-care (01) ==
PROVIDERS: Emergency Provider Emergency Medicine; PCP Nurse Practitioner
DX: M79.89 Other specified soft tissue disorders (principal); Z79.82 Long term (current) use of aspirin; E11.51 Type 2 diabetes mellitus with diabetic peripheral angiopathy without gangrene
CPT/HCPCS: 96372; 99284; J1650

== ENCOUNTER → 2023-03-19 03:30 | Outpatient (CLI) | payer MEDICARE, MEDICAID, SELFPAY ==
--- NOTE | 2023-03-19 07:15 | DI.US_ITS ---
Exam(s) US LOWER EXTREMITY VENOUS RT EXAM: US LOWER EXTREMITY VENOUS RT CLINICAL HISTORY: calf pain, leg edema, T 2 DM,? DVT, + HOMANS,r60.0,l97.409 TECHNIQUE: Grayscale, color, and doppler imaging of the deep venous system of the right lower extrem ity was performed. COMPARISON: US US ECHOCARDIOGRAM from 06/07/2022 FINDINGS: There is no evidence of intraluminal thrombus and there is normal compression and augmentation demons trated within the common femoral vein, femoral vein, and popliteal vein. In the ipsilateral calf the interrogated veins also exhibit normal compression/ augmentation properti es. The ipsilateral saphenofemoral junction is patent. IMPRESSION: 1. No evidence of DVT in the right lower extremity. DATA REPOSITORY:
== END ==
PROVIDERS: PCP Nurse Practitioner; Visit Provider Podiatrist
DX: E11.621 Type 2 diabetes mellitus with foot ulcer (principal); R60.0 Localized edema
CPT/HCPCS: 93971

== ENCOUNTER → 2023-03-26 01:53 | Outpatient (CLI) | payer MEDICARE, SELFPAY ==
--- NOTE | 2023-03-26 06:45 | DI.MRI_ITS ---
Exam(s) MR LOWER EXTREMITY RT WO/W EXAM: MR LOWER EXTREMITY RT WO/W CLINICAL HISTORY: rule out osteomyelitis rt calcaneus, nonpressure ulcer. TECHNIQUE: Multiplanar multisequence MRI was performed. CONTRAST MATERIAL: IV Contrast: 12 mL of Dotarem contrast administered. COMPARISON: CR XR FOOT RT COMPLETE from 02/01/2023 FINDINGS: The examination is limited due to patient motion artifact. BONES/JOINTS: There is normal marrow signal seen in the calcaneus. There is no hypointense signal se en on the T1 weighted images to suggest osteomyelitis. No evidence of bone lesion. No joint space na rrowing identified. No joint effusion identified. LIGAMENTS: The medial and lateral ankle ligaments are grossly unremarkable. MUSCULOTENDINOUS STRUCTURES: The Achilles tendon and visualized portions of the plantar fascia are un remarkable. The visualized portions of the medial, lateral anterior ankle tendons are unremarkable. The musculature shows normal signal. There is mild fatty atrophy of some of the muscle groups. SOFT TISSUES: There is a soft tissue defect on the skin surface of the posterior foot suggesting an u lcer. No focal fluid collection is seen to suggest an abscess. There is no significant edema associ ated with the ulceration. There is mild edema seen in the soft tissues posterior to the ankle, in th e visualized midfoot and anterior to the ankle. Again no focal fluid collection is seen to suggest a n abscess in these areas. OTHER FINDINGS: None. IMPRESSION: 1. Skin defect at the posterior foot consistent with an ulcer. No abscess is seen. 2. Soft tissue edema in the lower leg and foot suggesting cellulitis. 3. No findings to suggest osteomyelitis of the calcaneus. DATA REPOSITORY:
[2023-03-26] MEDS: Normal Saline Flush 10 ML SYR IVP (08:05)
[2023-03-26] MEDS: Gadoterate meglumine 20 ML VIAL 12 ML IVP (08:06)
== END ==
PROVIDERS: PCP Nurse Practitioner; Visit Provider Podiatrist
DX: E11.621 Type 2 diabetes mellitus with foot ulcer (principal); R68.89 Other general symptoms and signs
CPT/HCPCS: 73720

== ENCOUNTER → 2023-03-27 14:54 | Outpatient (BNVA) | payer MEDICARE, SELFPAY | PROVIDERS: PCP Nurse Practitioner; Referring Provider Nurse Practitioner; Visit Provider Physical Therapy Assistant | DX: I73.9 Peripheral vascular disease, unspecified (principal) | CPT/HCPCS: 93922 ==

== ENCOUNTER 2023-04-11 16:56 | Outpatient (REF) | payer MEDICARE, SELFPAY | END 2023-04-11 16:57 | disposition home or self-care (01) | LOC: LBN 16:56 | PROVIDERS: PCP Nurse Practitioner; Visit Provider Podiatrist | DX: I70.221 Atherosclerosis of native arteries of extremities with rest pain, right leg (principal); M79.89 Other specified soft tissue disorders; S90.821A Blister (nonthermal), right foot, initial encounter | CPT/HCPCS: 87070; 87075; 87205 ==

== ENCOUNTER → 2023-04-26 02:30 | Outpatient (CLI) | payer MEDICARE, SELFPAY ==
[2023-04-26 11:51] LABS: CREATININE 0.8 mg/dL (0.55-1.02); Estimated GFR 72.16 (mL/min/1.73m2)
== END ==
PROVIDERS: PCP Nurse Practitioner; Visit Provider Podiatrist
DX: E11.621 Type 2 diabetes mellitus with foot ulcer (principal); I70.221 Atherosclerosis of native arteries of extremities with rest pain, right leg; L97.419 Non-pressure chronic ulcer of right heel and midfoot with unspecified severity; R68.89 Other general symptoms and signs; S90.821A Blister (nonthermal), right foot, initial encounter
CPT/HCPCS: 82565

== ENCOUNTER → 2023-05-01 03:00 | Outpatient (CLI) | payer MEDICARE, SELFPAY ==
--- NOTE | 2023-05-01 07:30 | DI.CT_ITS ---
Exam(s) CT ABD AORTA CTA W RUNOFF EXAM: CT ABD AORTA CTA W RUNOFF CLINICAL HISTORY: PVD, ischemic ulcer heel, right hallux bulla,I70.221,S90.821A. TECHNIQUE: Imaging Protocol: Axial computed tomography images with coronal and sagittal reformatted images were created and reviewed CONTRAST MATERIAL: Intravenous: Omnipaque 350 Contrast volume:100 ml Oral: None COMPARISON: None FINDINGS: ABDOMINAL AORTA/ILIAC ARTERIES: Abdominal aorta exhibits moderate atherosclerosis but no aneurysm. There is some atherosclerotic dis ease but no critical stenosis at the level the carotid bifurcation and there is no aneurysmal dilatat ion or critical stenosis in the common iliac arteries nor at the junction of the common and external iliac arteries. Both external iliac arteries exhibit only minimal atherosclerotic involvement withou t significant stenosis. Both common femoral arteries are peripherally calcified. LEFT LOWER EXTREMITY: The left SFA is occluded at its origin. There is a patent vascular graph extending from the left com mon femoral artery and coursing anteriorly in the left thigh and extending to the lateral aspect of t he left thigh where it inserts distally into the left anterior tibial artery in the calf. The distal anastomosis is patent. The left anterior tibial artery is patent down to at least the ankle level. There is minimal flow evident in the ipsilateral left posterior tibial artery and the left peroneal artery appears occluded. RIGHT LOWER EXTREMITY: The right SFA is patent but exhibits multilevel disease. There is a right kne e prosthesis which causes abundant artifact but the right popliteal artery appears occluded. There i s reconstituted flow in the right tibioperoneal trunk and there is thin three-vessel runoff below thi s level in the upper right calf. The dominant runoff artery is the right anterior tibial artery whic h reaches to the dorsalis pedis level. The right posterior tibial artery exhibits multilevel stenose s and does not appear opacified to the ankle level. The right peroneal artery is opacified to the di stal calf level. SOFT TISSUES: There is prominent edema in the right lower leg and continues down into the ankle and f oot. No distinct fluid collection. Lesser amount of edema noted in the opposite-left lower extremit y. There is a right knee prosthesis and there is hardware in left hip. No acute fractures identified. No significant osseous lesions. ABDOMEN: There is no ascites. LIVER: There are no focal hepatic lesions nor dilatation of intrahepatic ducts. GALLBLADDER/BILIARY: Gallstones noted. No evidence of acute cholecystitis. CBD is not dilated. PANCREAS: No evidence of pancreatic mass nor dilatation of the pancreatic duct. SPLEEN: Spleen is not enlarged. There are no intrasplenic lesions. Splenic and portal veins are johnson nt. ADRENALS: There are no significant adrenal masses. KIDNEYS: Small benign cysts noted in lateral cortex of the right kidney. Does not require further wo rkup. No solid renal masses evident. No calculi nor hydronephrosis.. ABDOMINAL AORTA: The abdominal aorta is not enlarged. LYMPH NODES: There is no retroperitoneal nor para-aortic adenopathy. No obvious mesenteric masses. ABDOMINAL WALL: No evidence of significant anterior abdominal wall hernia. GI: There is no evidence of bowel obstruction, free air, nor abscess.There are no ischemic appearing bowel loops and no ascites. PELVIS: LYMPH NODES: There is no intrapelvic nor inguinal adenopathy. GI: No evidence of appendicitis.Diverticuli but no evidence of acute diverticulitis. URINARY BLADDER: No calculi nor masses evident REPRODUCTIVE: Uterus and adnexal regions are age-appropriate. Small calcified posterior myometrial f ibroid noted. OSSEOUS: No significant osseous lesions. No fractures. Left hip hardware. Advanced degenerative changes in the hips. IMPRESSION: 1. Moderate atherosclerotic involvement of the abdominal aorta without evidence of abdominal aortic a neurysm. 2. Adequate inflow with Mild-moderate atherosclerotic involvement of common iliac arteries but withou t tight stenosis in these vessels and no significant stenosis at their junctions with the external il iac arteries and both external iliac arteries are nicely patent.. 3. Left SFA is occluded. Patent left fem-anterior tibial graft. 4. Significant disease throughout the right SFA and probable conclusion of the right popliteal artery which is somewhat difficult to assess because of beam hardening artifact from the right knee prosthe sis. 5. Dominant runoff arteries bilaterally are the anterior tibial arteries. However, there is severe atherosclerotic disease-outflow vessels in both calves. RADIATION DOSE DELIVERED: 1,082.81mGy.cm Total DLP DATA REPOSITORY: All CT scans at this facility are submitted to the National Radiology Data Registry (NRDR) Dose Index Registry (DIR) with the [employer] (ACR). RADIATION OPTIMIZATION: All CT scans at this facility use at least one of these dose optimization te chniques: automated exposure control; mA and/or kV adjustment per patient size (includes targeted exa ms where dose is matched to clinical indication); or iterative reconstruction.
[2023-05-01] MEDS: Omnipaque 350 MG/ML 500 ML BTL-Imaging package IJ (10:15)
[2023-05-01] MEDS: Normal Saline - Diluent 50 ML VIAL IJ (10:15)
== END ==
PROVIDERS: PCP Nurse Practitioner; Visit Provider Podiatrist
DX: I70.221 Atherosclerosis of native arteries of extremities with rest pain, right leg (principal); Z96.651 Presence of right artificial knee joint
CPT/HCPCS: 75635